=== PATIENT | male | born 1980 | race Caucasian/White ===

== ENCOUNTER 2018-07-04 15:01 | Emergency (ER) | payer OTHER ==
--- NOTE | 2018-07-04 15:48 | EDPHYS ---
Physician Documentation [facility] Name: Shaw Jacome Age: 37 yrs Sex: Male : 1980 Arrival Date: 07/04/2018 Time: 15:04 Bed 6 Private MD: None, None ED Physician Keshav Bhatt HPI: 07/04 15:39 This 37 yrs old Male presents to ER via Ambulatory with complaints of Second jr8 Opinion. 15:39 The patient has not experienced similar symptoms in the past. The patient has been jr8 recently seen by a physician:. Patient stated that he had a cyst removed from his scrotum. Stated that they physician had excised it and then cauterized the area. Stated that he wanted a second opinion because of the open wound that they wanted to leave open . Historical: - Allergies: 15:18 No Known Allergies; aj - Home Meds: 15:18 Bactrim DS Oral [Active]; aj - PMHx: 15:18 None; aj - PSHx: 15:18 None; aj - Immunization history:: Last tetanus immunization: up to date. - Social history:: Smoking status: Patient uses tobacco products, smokes one-half pack cigarettes per day, Patient uses street drugs, Methamphetamine (Meth). - Ebola Screening: : Patient negative for fever greater than or equal to 101.5 degrees Fahrenheit, and additional compatible Ebola Virus Disease symptoms Patient denies exposure to infectious person Patient denies travel to an Ebola-affected area in the 21 days before illness onset No symptoms or risks identified at this time. ROS: 15:39 Eyes: Negative for injury, pain, redness, and discharge, ENT: Negative for injury, jr8 pain, and discharge, Neck: Negative for injury, pain, and swelling, Cardiovascular: Negative for chest pain, palpitations, and edema, Respiratory: Negative for shortness of breath, cough, wheezing, and pleuritic chest pain, Abdomen/GI: Negative for abdominal pain, nausea, vomiting, diarrhea, and constipation, Back: Negative for injury and pain, MS/Extremity: Negative for injury and deformity, Neuro: Negative for headache, weakness, numbness, tingling, and seizure. 15:39 Skin: Positive for open wound left scrotum . Exam: 15:39 Constitutional: This is a well developed, well nourished patient who is awake, alert, jr8 and in no acute distress. Cardiovascular: Regular rate and rhythm with a normal S1 and S2. No gallops, murmurs, or rubs. Normal PMI, no JVD. No pulse deficits. Respiratory: Lungs have equal breath sounds bilaterally, clear to auscultation and percussion. No rales, rhonchi or wheezes noted. No increased work of breathing, no retractions or nasal flaring. Neuro: Awake and alert, GCS 15, oriented to person, place, time, and situation. Cranial nerves II-XII grossly intact. Motor strength 5/5 in all extremities. Sensory grossly intact. Cerebellar exam normal. Normal gait. 15:39 Skin: Patient has approximately 2 cm superficial healing open wound to left anterior scrotum. No erythema or discharge noted. Healing well. No sings of infection . Vital Signs: 15:18 BP 143 / 90; Pulse 87; Resp 18; Temp 97.3; Pulse Ox 98% on R/A; Weight 105.69 kg; aj Height 6 ft. 4 in. (193.04 cm); 15:18 Body Mass Index 28.36 (105.69 kg, 193.04 cm) aj MDM: 15:26 Patient medically screened. jr8 15:39 Data reviewed: vital signs, nurses notes, and as a result, I will discharge patient. jr8 Data interpreted: Pulse oximetry: on room air is 98 %. Interpretation: normal. Counseling: I had a detailed discussion with the patient and/or guardian regarding: the historical points, exam findings, and any diagnostic results supporting the discharge/admit diagnosis, the need for outpatient follow up, a family practitioner, to return to the emergency department if symptoms worsen or persist or if there are any questions or concerns that arise at home. ED course: Discussed with patient that the wound is healing well. No need for wound repair. Will heal secondarily. To keep cleaning it and dressing the area daily. Need to f/u with his PCP . Administered Medications: No medications were administered Disposition: 16:04 Co-signature as Attending Physician, Keshav Bhatt MD. rn Disposition: 07/04/18 15:47 Discharged to Home. Impression: Open wound of scrotum and testes. - Condition is Stable. - Discharge Instructions: Delayed Wound Closure. - Work release form, Medication Reconciliation Form, Thank You Letter, Antibiotic Education, Prescription Opioid Use form. - Follow up: Private Physician; When: 2 - 3 days; Reason: Recheck today's complaints, Continuance of care, Re-evaluation by your physician. - Problem is new. - Symptoms have improved. Signatures: Nish Taylor RN RN sg Myers, Amanda, RN RN aj Nieto, Roman, MD MD rn Roszak, Josh, PA PA jr8 Corrections: (The following items were deleted from the chart) 15:57 15:47 07/04/2018 15:47 Discharged to Home. Impression: Open wound of scrotum and sg testes. Condition is Stable. Forms are Medication Reconciliation Form, Thank You Letter, Antibiotic Education, Prescription Opioid Use. Follow up: Private Physician; When: 2 - 3 days; Reason: Recheck today's complaints, Continuance of care, Re-evaluation by your physician. Problem is new. Symptoms have improved. jr8
--- NOTE | 2018-07-04 15:48 | ER ---
Nurse's Notes [facility] Name: Shaw Jacome Age: 37 yrs Sex: Male : 1980 Arrival Date: 07/04/2018 Time: 15:04 Bed 6 Private MD: None, None Diagnosis: Open wound of scrotum and testes Presentation: 07/04 15:17 Presenting complaint: Patient states: Reports having "a lump removed" from left scrotum aj yesterday. Patient reports that wound was not closed and he would like it clsoed. Transition of care: patient was not received from another setting of care. Onset of symptoms was July 03, 2018. Risk Assessment: Do you want to hurt yourself or someone else? Patient reports no desire to harm self or others. Initial Sepsis Screen: Does the patient meet any 2 criteria? No. Patient's initial sepsis screen is negative. Does the patient have a suspected source of infection? No. Patient's initial sepsis screen is negative. Care prior to arrival: None. 15:17 Method Of Arrival: Ambulatory 15:17 Acuity: CHERRY 4 aj Triage Assessment: 15:18 General: Appears in no apparent distress. comfortable, Behavior is calm, cooperative, aj appropriate for age. Pain: Complains of pain in left testicle. Neuro: Level of Consciousness is awake, alert, obeys commands, Oriented to person, place, time, situation, Appropriate for age. Respiratory: Airway is patent Respiratory effort is even, unlabored, Respiratory pattern is regular, symmetrical. Derm: Skin is intact, is healthy with good turgor, Skin is pink, warm \\T\\ dry. normal, Wound noted left testicle. Historical: - Allergies: 15:18 No Known Allergies; aj - Home Meds: 15:18 Bactrim DS Oral [Active]; aj - PMHx: 15:18 None; aj - PSHx: 15:18 None; aj - Immunization history:: Last tetanus immunization: up to date. - Social history:: Smoking status: Patient uses tobacco products, smokes one-half pack cigarettes per day, Patient uses street drugs, Methamphetamine (Meth). - Ebola Screening: : Patient negative for fever greater than or equal to 101.5 degrees Fahrenheit, and additional compatible Ebola Virus Disease symptoms Patient denies exposure to infectious person Patient denies travel to an Ebola-affected area in the 21 days before illness onset No symptoms or risks identified at this time. Screenin:02 Abuse screen: Denies threats or abuse. Denies injuries from another. Nutritional sg screening: No deficits noted. Tuberculosis screening: No symptoms or risk factors identified. Never had TB. Fall Risk None identified. No fall in past 12 months (0 pts). Assessment: 15:32 General: Appears in no apparent distress. comfortable, Behavior is calm, cooperative. iw Neuro: Level of Consciousness is awake, alert, obeys commands, Oriented to person, place, time, situation, Moves all extremities. Cardiovascular: Patient's skin is warm and dry. Respiratory: Respiratory effort is even, unlabored. Derm: Skin is intact. Musculoskeletal: Range of motion: intact in all extremities. Vital Signs: 15:18 BP 143 / 90; Pulse 87; Resp 18; Temp 97.3; Pulse Ox 98% on R/A; Weight 105.69 kg; aj Height 6 ft. 4 in. (193.04 cm); 15:18 Body Mass Index 28.36 (105.69 kg, 193.04 cm) aj ED Course: 15:04 Patient arrived in ED. mr 15:04 None, None is Private Physician. mr 15:18 Triage completed. aj 15:18 Arm band placed on right wrist. Patient placed in an exam room. aj 15:20 Aline Nicholas, RN is Primary Nurse. iw 15:20 Patient has correct armband on for positive identification. Call light in reach. Side sg rails up X2. Pulse ox on. NIBP on. Warm blanket given. Head of bed elevated. 15:26 Nayan Tomlin PA is PHCP. [facility] 15:26 Keshav Bhatt MD is Attending Physician. jr 15:50 No provider procedures requiring assistance completed. Patient did not have IV access sg during this emergency room visit. 15:54 Dressings: non-adherent dressing x 1 left testicle 4X4s X 1; pelvis and left testicle sg CoBan. Wound care: to cellulitis located on left testicle was cleaned with soap and water, dressed with Neosporin, Patient tolerated well. Administered Medications: No medications were administered Outcome: 15:47 Discharge ordered by . jr8 15:50 Discharged to home ambulatory. sg 15:50 Condition: good 15:50 Discharge instructions given to patient, Instructed on discharge instructions, follow up and referral plans. safe sex practices, safety practices, wound care, Demonstrated understanding of instructions, follow-up care, wound care. 15:57 Patient left the ED. sg Signatures: Nish Taylor RN RN sg Myers, Amanda, RN RN aj Rivera, Mary mr Aline Nicholas RN RN iw Roszak, Josh, PA PA jr8
[2018-07-04 16:00] VITALS: BP 143/90; TEMP 97.3; O2SAT 98
== END 2018-07-04 15:57 | disposition home or self-care (01) ==
LOC: ER 15:01
DX: S31.30XA Unspecified open wound of scrotum and testes, initial encounter (principal); F17.210 Nicotine dependence, cigarettes, uncomplicated
CPT/HCPCS: 99283

== ENCOUNTER 2019-04-30 21:41 | Emergency (ER) | payer OTHER ==
[2019-04-30] MEDS ORDERED: KETOROLAC 30 MG/ML INJ ONE (22:18)
[2019-04-30] MEDS ORDERED: FAMOTIDINE 20 MG TAB ONE (22:18)
[2019-04-30] MEDS ORDERED: PROMETHAZINE 25 MG TABLET ONE (22:18)
--- NOTE | 2019-04-30 23:05 | ER ---
Nurse's Notes [facility] Name: Shaw Jacome Age: 38 yrs Sex: Male : 1980 Arrival Date: 04/30/2019 Time: 21:43 Bed 19 Private MD: Diagnosis: Tension-type headache, unspecified Presentation: 04/30 21:53 Presenting complaint: Patient states: "I am having a head ache. It got so bad at [place] [id number] that I had to go throw up.". Transition of care: patient was not received from another setting of care. Onset of symptoms was April 30, 2019. Risk Assessment: Do you want to hurt yourself or someone else? Patient reports no desire to harm self or others. Initial Sepsis Screen: Does the patient meet any 2 criteria? No. Patient's initial sepsis screen is negative. Does the patient have a suspected source of infection? No. Patient's initial sepsis screen is negative. Care prior to arrival: None. 21:53 Method Of Arrival: [facility] 21:53 Acuity: CHERRY 4 jd3 Historical: - Allergies: 21:55 No Known Allergies; jd3 - Home Meds: 21:55 None [Active]; jd3 - PMHx: 21:55 None; jd3 - PSHx: 21:55 None; jd3 - Immunization history:: Adult Immunizations up to date. - Social history:: Smoking status: Patient uses tobacco products, smokes one pack cigarettes per day. - Ebola Screening: : Patient negative for fever greater than or equal to 101.5 degrees Fahrenheit, and additional compatible Ebola Virus Disease symptoms. Screenin:00 Abuse screen: Denies threats or abuse. Nutritional screening: No deficits noted. jb4 Tuberculosis screening: No symptoms or risk factors identified. Fall Risk None identified. Assessment: 22:00 General: Appears in no apparent distress. uncomfortable, Behavior is calm, cooperative, jb4 appropriate for age. Pain: Complains of pain in forehead, left temporal area and right temporal area Pain does not radiate. Pain currently is 10 out of 10 on a pain scale. Quality of pain is described as pressure. Neuro: Level of Consciousness is awake, alert, obeys commands, Oriented to person, place, time, situation. Cardiovascular: Patient's skin is warm and dry. Respiratory: Airway is patent Respiratory effort is even, unlabored, Respiratory pattern is regular, symmetrical. GI: Reports nausea. : No deficits noted. No signs and/or symptoms were reported regarding the genitourinary system. EENT: No deficits noted. No signs and/or symptoms were reported regarding the EENT system. Derm: Skin is intact, Skin is pink, warm \\T\\ dry. Musculoskeletal: Circulation, motion, and sensation intact. Range of motion: intact in all extremities. 23:00 Reassessment: Patient appears in no apparent distress at this time. Patient and/or jb4 family updated on plan of care and expected duration. Pain level reassessed. Patient is alert, oriented x 3, equal unlabored respirations, skin warm/dry/pink. Pt verbalized understanding of d/c and follow up instructions. Vital Signs: 21:55 BP 117 / 85; Pulse 53; Resp 16 S; Temp 98.7(O); Pulse Ox 97% on R/A; Weight 107.95 kg jd3 (R); Height 6 ft. 5 in. (195.58 cm) (R); Pain 10/10; 23:00 BP 130 / 90; Pulse 51; Resp 16; Pulse Ox 100% on R/A; jb4 21:55 Body Mass Index 28.22 (107.95 kg, 195.58 cm) jd3 Phong Coma Score: 22:58 Eye Response: spontaneous(4). Verbal Response: oriented(5). Motor Response: obeys snw commands(6). Total: 15. ED Course: 21:43 Patient arrived in ED. cl3 21:51 Kelby Curtis RN is Primary Nurse. jb4 21:53 Triage completed. jd3 21:55 Arm band placed on. jd3 21:59 Charley Baires FNP-C is PHCP. snw 21:59 Santiago Cherry MD is Attending Physician. snw 22:00 Patient has correct armband on for positive identification. Bed in low position. Call jb4 light in reach. Side rails up X 1. Pulse ox on. NIBP on. 23:16 No provider procedures requiring assistance completed. Patient did not have IV access jb4 during this emergency room visit. Administered Medications: 22:23 Drug: Pepcid 20 mg Route: PO; jb4 22:59 Follow up: Response: No adverse reaction jb4 22:24 Drug: TORadol 30 mg Route: IM; Site: left gluteus; jb4 22:50 Follow up: Response: No adverse reaction; Pain is decreased jb4 22:24 Drug: Phenergan 25 mg Route: PO; jb4 22:50 Follow up: Response: No adverse reaction; Nausea is decreased jb4 Intake: 19:00 IV: 1000ml; Total: 1000ml. jb4 Outcome: 22:57 Discharge ordered by MD. west 23:16 Discharged to home ambulatory. jb4 23:16 Condition: stable 23:16 Discharge instructions given to patient, Instructed on discharge instructions, follow up and referral plans. medication usage, Demonstrated understanding of instructions, follow-up care, medications, Prescriptions given X 1. 23:16 Patient left the ED. jb4 Signatures: Charley Baires, AIRLINE FLIGHT ATTENDANT-C AIRLINE FLIGHT ATTENDANT-Csnw Kelby Curtis RN RN jb4 Reji Cheng RN RN Seth Bernardo cl3
--- NOTE | 2019-04-30 23:06 | EDPHYS ---
Physician Documentation [facility] Name: Shaw Jacome Age: 38 yrs Sex: Male : 1980 Arrival Date: 04/30/2019 Time: 21:43 Bed 19 Private MD: ED Physician Santiago Cherry HPI: 04/30 22:27 This 38 yrs old Male presents to ER via Ambulatory with complaints of snw Headache. 22:27 The patient complains of pain to the forehead, right anabaptist and left anabaptist. The snw patient describes the headache as pounding. Onset: The symptoms/episode began/occurred acutely, today. Associated signs and symptoms: Pertinent positives: vomiting, x 1. Severity of symptoms: At its worst the pain was moderate, severe. Headache History: Denies prior headaches. the symptoms are aggravated by stress. It is unknown whether or not the patient has had similar symptoms in the past. It is unknown whether or not the patient has recently seen a physician. Historical: - Allergies: 21:55 No Known Allergies; jd3 - Home Meds: 21:55 None [Active]; jd3 - PMHx: 21:55 None; jd3 - PSHx: 21:55 None; jd3 - Immunization history:: Adult Immunizations up to date. - Social history:: Smoking status: Patient uses tobacco products, smokes one pack cigarettes per day. - Ebola Screening: : Patient negative for fever greater than or equal to 101.5 degrees Fahrenheit, and additional compatible Ebola Virus Disease symptoms. ROS: 22:26 Constitutional: Negative for fever, chills, and weight loss, Eyes: Negative for injury, snw pain, redness, and discharge, ENT: Negative for injury, pain, and discharge, Neck: Negative for injury, pain, and swelling, Cardiovascular: Negative for chest pain, palpitations, and edema, Respiratory: Negative for shortness of breath, cough, wheezing, and pleuritic chest pain, Abdomen/GI: Negative for abdominal pain, diarrhea, and constipation, + vomiting 2nd to pain Back: Negative for injury and pain, : Negative for injury, bleeding, discharge, and swelling, MS/Extremity: Negative for injury and deformity, Skin: Negative for injury, rash, and discoloration. 22:26 Neuro: Positive for headache, of the forehead, right anabaptist and left anabaptist. Exam: 22:22 Constitutional: This is a well developed, well nourished patient who is awake, alert, snw and in no acute distress. Head/Face: Normocephalic, atraumatic. Eyes: Pupils equal round and reactive to light, extra-ocular motions intact. Lids and lashes normal. Conjunctiva and sclera are non-icteric and not injected. Cornea within normal limits. Periorbital areas with no swelling, redness, or edema. ENT: Nares patent. No nasal discharge, no septal abnormalities noted. Tympanic membranes are normal and external auditory canals are clear. Oropharynx with no redness, swelling, or masses, exudates, or evidence of obstruction, uvula midline. Mucous membranes moist. Neck: Trachea midline, no thyromegaly or masses palpated, and no cervical lymphadenopathy. Supple, full range of motion without nuchal rigidity, or vertebral point tenderness. No Meningismus. Chest/axilla: Normal chest wall appearance and motion. Nontender with no deformity. No lesions are appreciated. Cardiovascular: Regular rate and rhythm with a normal S1 and S2. No gallops, murmurs, or rubs. Normal PMI, no JVD. No pulse deficits. Respiratory: Lungs have equal breath sounds bilaterally, clear to auscultation and percussion. No rales, rhonchi or wheezes noted. No increased work of breathing, no retractions or nasal flaring. Abdomen/GI: Soft, non-tender, with normal bowel sounds. No distension or tympany. No guarding or rebound. No evidence of tenderness throughout. Back: No spinal tenderness. No costovertebral tenderness. Full range of motion. Skin: Warm, dry with normal turgor. Normal color with no rashes, no lesions, and no evidence of cellulitis. MS/ Extremity: Pulses equal, no cyanosis. Neurovascular intact. Full, normal range of motion. Psych: Awake, alert, with orientation to person, place and time. Behavior, mood, and affect are within normal limits. 22:22 Neuro: Orientation: is normal, Mentation: is normal, Memory: is normal, Cranial nerves: grossly normal, Motor: is normal. Vital Signs: 21:55 BP 117 / 85; Pulse 53; Resp 16 S; Temp 98.7(O); Pulse Ox 97% on R/A; Weight 107.95 kg jd3 (R); Height 6 ft. 5 in. (195.58 cm) (R); Pain 10/10; 23:00 BP 130 / 90; Pulse 51; Resp 16; Pulse Ox 100% on R/A; jb4 21:55 Body Mass Index 28.22 (107.95 kg, 195.58 cm) jd3 Phong Coma Score: 22:58 Eye Response: spontaneous(4). Verbal Response: oriented(5). Motor Response: obeys snw commands(6). Total: 15. MDM: 22:06 Patient medically screened. snw 22:58 Data reviewed: vital signs, nurses notes. Data interpreted: Pulse oximetry: on room air snw is 97 %. Interpretation: normal. Counseling: I had a detailed discussion with the patient and/or guardian regarding: the historical points, exam findings, and any diagnostic results supporting the discharge/admit diagnosis, the need for outpatient follow up, to return to the emergency department if symptoms worsen or persist or if there are any questions or concerns that arise at home. Response to treatment: the patient's symptoms have markedly improved after treatment, the patient's symptoms have resolved after treatment, the patient's blood pressure is in an acceptable range, mental status has returned to baseline, the patient's pain is gone. Special discussion: Based on the history and exam findings, there is no indication for further emergent testing or inpatient evaluation. I discussed with the patient/guardian the need to see the primary care provider for further evaluation of the symptoms. Administered Medications: 22:23 Drug: Pepcid 20 mg Route: PO; jb4 22:59 Follow up: Response: No adverse reaction jb4 22:24 Drug: TORadol 30 mg Route: IM; Site: left gluteus; jb4 22:50 Follow up: Response: No adverse reaction; Pain is decreased jb4 22:24 Drug: Phenergan 25 mg Route: PO; jb4 22:50 Follow up: Response: No adverse reaction; Nausea is decreased jb4 Disposition: 04/30/19 22:57 Discharged to Home. Impression: Tension-type headache, unspecified. - Condition is Stable. - Discharge Instructions: Tension Headache, Adult, Rehydration, Adult. - Prescriptions for promethazine 25 mg Oral Tablet - take 1 tablet by ORAL route every 6 hours As needed; 20 tablet. - Medication Reconciliation Form, Thank You Letter, Antibiotic Education, Prescription Opioid Use form. - Follow up: Private Physician; When: 2 - 3 days; Reason: Recheck today's complaints, Continuance of care, Re-evaluation by your physician. Follow up: Emergency Department; When: As needed; Reason: Worsening of condition. Signatures: Charley Baires, GAVIN-C COUNTY ENGINEER-Csnw Kelby Curtis RN RN jb4 Reji Cheng RN RN jd3 Corrections: (The following items were deleted from the chart) 23:16 22:57 04/30/2019 22:57 Discharged to Home. Impression: Tension-type headache, jb4 unspecified. Condition is Stable. Forms are Medication Reconciliation Form, Thank You Letter, Antibiotic Education, Prescription Opioid Use. Follow up: Private Physician; When: 2 - 3 days; Reason: Recheck today's complaints, Continuance of care, Re-evaluation by your physician. Follow up: Emergency Department; When: As needed; Reason: Worsening of condition. snw
[2019-05-01 03:12] VITALS: TEMP 98.7
[2019-05-01 03:13] VITALS: BP 130/90; O2SAT 100
== END 2019-04-30 23:16 | disposition home or self-care (01) ==
LOC: ER 21:41
DX: G44.209 Tension-type headache, unspecified, not intractable (principal); F17.210 Nicotine dependence, cigarettes, uncomplicated

== ENCOUNTER 2019-09-15 10:05 | Emergency (ER) | payer OTHER ==
--- NOTE | 2019-09-15 10:55 | ER ---
Nurse's Notes [facility] Name: Shaw Jacome Age: 38 yrs Sex: Male : 1980 Arrival Date: 09/15/2019 Time: 10:07 Bed 6 Private MD: Diagnosis: Sebaceous cyst Presentation: 09/15 10:11 Presenting complaint: Patient states: Scrotal pain and swelling, reports started two sg weeks ago, but last night the swelling increased with pain, attempt to squeeze out material but nothing came out just increased the pain, pt states no fever/n/v/d at this time. Transition of care: patient was not received from another setting of care. Onset of symptoms was September 15, 2019. Risk Assessment: Do you want to hurt yourself or someone else? Patient reports no desire to harm self or others. Initial Sepsis Screen: Does the patient meet any 2 criteria? No. Patient's initial sepsis screen is negative. Does the patient have a suspected source of infection? Yes: Skin breakdown/wound. Care prior to arrival: None. 10:11 Method Of Arrival: Ambulatory sg 10:11 Acuity: CHERRY 3 sg Triage Assessment: 19:20 General: Behavior is cooperative, appropriate for age. ch Historical: - Allergies: 10:15 No Known Allergies; sg - Home Meds: 10:15 None [Active]; sg - PMHx: 10:15 None; sg - PSHx: 10:15 None; sg - Immunization history:: Adult Immunizations up to date. - Social history:: Smoking status: Patient uses tobacco products, smokes one pack cigarettes per day. - Ebola Screening: : Patient negative for fever greater than or equal to 101.5 degrees Fahrenheit, and additional compatible Ebola Virus Disease symptoms Patient denies exposure to infectious person Patient denies travel to an Ebola-affected area in the 21 days before illness onset No symptoms or risks identified at this time. - Family history:: not pertinent. Screenin:58 Abuse screen: Denies threats or abuse. Denies injuries from another. Nutritional ch screening: No deficits noted. Tuberculosis screening: No symptoms or risk factors identified. Fall Risk None identified. Assessment: 10:58 Reassessment: Patient appears in no apparent distress at this time. Patient and/or ch family updated on plan of care and expected duration. Pain level reassessed. Patient is alert, oriented x 3, equal unlabored respirations, skin warm/dry/pink. General: Appears in no apparent distress. comfortable. Pain: Complains of pain in groin Pain currently is 5 out of 10 on a pain scale. Neuro: No deficits noted. Respiratory: No deficits noted. GI: No signs and/or symptoms were reported involving the gastrointestinal system. : Reports a " boil" on the skin ath the base of his penis, for weeks. states it has been bothering him more the past two days. Derm: Skin is pink, warm \\T\\ dry. Vital Signs: 10:13 BP 139 / 92; Pulse 65; Resp 17; Temp 98.8; Pulse Ox 100% on R/A; Pain 10/10; sg 10:58 BP 128 / 82; Pulse 71; Resp 16; Temp 98.9; Pulse Ox 100% on R/A; Pain 6/10; ED Course: 10:07 Patient arrived in ED. mr 10:13 Triage completed. 10:19 Tu Brooks MD is Attending Physician. [facility] 10:31 Alycia Castelan, JO ANN is Primary Nurse. 10:55 Anika Otoole MD is Referral Physician. [facility] 10:58 Patient has correct armband on for positive identification. Bed in low position. Call light in reach. Side rails up X 1. 10:58 No provider procedures requiring assistance completed. Patient did not have IV access during this emergency room visit. Administered Medications: No medications were administered Point of Care Testing: Blood Glucose: 10:36 Blood Glucose: 103 mg/dL; hb Ranges: Outcome: 10:55 Discharge ordered by . [facility] 10:58 Discharged to home ambulatory. 10:58 Condition: stable 10:58 Discharge instructions given to patient, Instructed on discharge instructions, follow up and referral plans. medication usage, Demonstrated understanding of instructions, follow-up care, medications, Prescriptions given X 1. 11:02 Patient left the ED. Signatures: Alycia Castelan, Nish Velasquez RN, ch, RN RN sg Anderson, Corey, MD MD cha Rivera, Mary Letitia Fan RN RN hb
--- NOTE | 2019-09-15 10:56 | EDPHYS ---
Physician Documentation [facility] Name: Shaw Jacome Age: 38 yrs Sex: Male : 1980 Arrival Date: 09/15/2019 Time: 10:07 Bed 6 Private MD: CONCHITA Physician Tu Brooks HPI: 09/15 10:49 This 38 yrs old Male presents to ER via Ambulatory with complaints of Abscess.mac 10:49 the patient presents with a swollen area of the shaft of penis. Description: confluent, mac erythematous. Onset: The symptoms/episode began/occurred 3 day(s) ago. Possible cause(s): unknown. Associated signs and symptoms: The patient has no apparent associated signs or symptoms. Modifying factors: the symptoms are alleviated by nothing, the symptoms are aggravated by nothing. Severity of symptoms: At their worst the symptoms were mild, in the emergency department the symptoms are unchanged. The patient has not experienced similar symptoms in the past. Historical: - Allergies: 10:15 No Known Allergies; sg - Home Meds: 10:15 None [Active]; sg - PMHx: 10:15 None; sg - PSHx: 10:15 None; sg - Immunization history:: Adult Immunizations up to date. - Social history:: Smoking status: Patient uses tobacco products, smokes one pack cigarettes per day. - Ebola Screening: : Patient negative for fever greater than or equal to 101.5 degrees Fahrenheit, and additional compatible Ebola Virus Disease symptoms Patient denies exposure to infectious person Patient denies travel to an Ebola-affected area in the 21 days before illness onset No symptoms or risks identified at this time. - Family history:: not pertinent. ROS: 10:49 Constitutional: Negative for fever, chills, and weight loss, Eyes: Negative for injury, mac pain, redness, and discharge, ENT: Negative for injury, pain, and discharge, Neck: Negative for injury, pain, and swelling, Cardiovascular: Negative for chest pain, palpitations, and edema, Respiratory: Negative for shortness of breath, cough, wheezing, and pleuritic chest pain, Abdomen/GI: Negative for abdominal pain, nausea, vomiting, diarrhea, and constipation, Back: Negative for injury and pain, : Negative for injury, bleeding, discharge, and swelling, MS/Extremity: Negative for injury and deformity, Neuro: Negative for headache, weakness, numbness, tingling, and seizure, Psych: Negative for depression, anxiety, suicide ideation, homicidal ideation, and hallucinations, Allergy/Immunology: Negative for hives, rash, and allergies, Endocrine: Negative for neck swelling, polydipsia, polyuria, polyphagia, and marked weight changes, Hematologic/Lymphatic: Negative for swollen nodes, abnormal bleeding, and unusual bruising. 10:49 Skin: Positive for swelling, of the shaft of penis. Exam: 10:49 Constitutional: This is a well developed, well nourished patient who is awake, alert, mac and in no acute distress. Head/Face: Normocephalic, atraumatic. Eyes: Pupils equal round and reactive to light, extra-ocular motions intact. Lids and lashes normal. Conjunctiva and sclera are non-icteric and not injected. Cornea within normal limits. Periorbital areas with no swelling, redness, or edema. ENT: Nares patent. No nasal discharge, no septal abnormalities noted. Tympanic membranes are normal and external auditory canals are clear. Oropharynx with no redness, swelling, or masses, exudates, or evidence of obstruction, uvula midline. Mucous membranes moist. Neck: Trachea midline, no thyromegaly or masses palpated, and no cervical lymphadenopathy. Supple, full range of motion without nuchal rigidity, or vertebral point tenderness. No Meningismus. Chest/axilla: Normal chest wall appearance and motion. Nontender with no deformity. No lesions are appreciated. Cardiovascular: Regular rate and rhythm with a normal S1 and S2. No gallops, murmurs, or rubs. Normal PMI, no JVD. No pulse deficits. Respiratory: Lungs have equal breath sounds bilaterally, clear to auscultation and percussion. No rales, rhonchi or wheezes noted. No increased work of breathing, no retractions or nasal flaring. Abdomen/GI: Soft, non-tender, with normal bowel sounds. No distension or tympany. No guarding or rebound. No evidence of tenderness throughout. Back: No spinal tenderness. No costovertebral tenderness. Full range of motion. Skin: Warm, dry with normal turgor. Normal color with no rashes, no lesions, and no evidence of cellulitis. MS/ Extremity: Pulses equal, no cyanosis. Neurovascular intact. Full, normal range of motion. Neuro: Awake and alert, GCS 15, oriented to person, place, time, and situation. Cranial nerves II-XII grossly intact. Motor strength 5/5 in all extremities. Sensory grossly intact. Cerebellar exam normal. Normal gait. Psych: Awake, alert, with orientation to person, place and time. Behavior, mood, and affect are within normal limits. 10:49 : CVA tenderness, is absent, Male external genitalia: Circumcision noted. swelling: tenderness, small sebaceous cyst beneath the penis. Vital Signs: 10:13 BP 139 / 92; Pulse 65; Resp 17; Temp 98.8; Pulse Ox 100% on R/A; Pain 10/10; sg 10:58 BP 128 / 82; Pulse 71; Resp 16; Temp 98.9; Pulse Ox 100% on R/A; Pain 6/10; ch MDM: 10:19 Patient medically screened. [facility] 10:53 Data reviewed: vital signs, nurses notes, lab test result(s). [facility] 09/15 10:48 Order name: Glucose, Ancillary Testing [facility] 09/15 10:30 Order name: Blood Glucose Level; Complete Time: 10:36 [facility] Administered Medications: No medications were administered Point of Care Testing: Blood Glucose: 10:36 Blood Glucose: 103 mg/dL; hb Ranges: Critical Glucose Levels:Adult <50 mg/dl or >400 mg/dl <40 mg/dl or >180 mg/dl Disposition: 09/15/19 10:55 Discharged to Home. Impression: Sebaceous cyst. - Condition is Stable. - Discharge Instructions: Epidermal Cyst, [id number], Epidermal Cyst. - Prescriptions for Bactrim DS 800- 160 mg Oral Tablet - take 1 tablet by ORAL route every 12 hours for 10 days; 20 tablet. - Medication Reconciliation Form, Thank You Letter, Antibiotic Education, Prescription Opioid Use form. - Follow up: Private Physician; When: 2 - 3 days; Reason: Recheck today's complaints, Continuance of care, Re-evaluation by your physician. Follow up: Anika Otoole MD; When: 2 - 3 days; Reason: Recheck today's complaints, Re-evaluation by your physician. - Problem is new. - Symptoms have improved. Signatures: Dispatcher [employer] [facility] Alycia Castelan RN RN Nish Taylor RN RN sg Anderson, Tu, MD MD mac Corrections: (The following items were deleted from the chart) 10:55 10:55 09/15/2019 10:55 Discharged to Home. Impression: Sebaceous cyst. Condition is mac Stable. Forms are Medication Reconciliation Form, Thank You Letter, Antibiotic Education, Prescription Opioid Use. Follow up: Private Physician; When: 2 - 3 days; Reason: Recheck today's complaints, Continuance of care, Re-evaluation by your physician. Problem is new. Symptoms have improved. mac 11:02 10:55 09/15/2019 10:55 Discharged to Home. Impression: Sebaceous cyst. Condition is ch Stable. Discharge Instructions: Epidermal Cyst, [id number], Epidermal Cyst. Prescriptions for Bactrim DS 800-160 mg Oral Tablet - take 1 tablet by ORAL route every 12 hours for 10 days; 20 tablet. and Forms are Medication Reconciliation Form, Thank You Letter, Antibiotic Education, Prescription Opioid Use. Follow up: Private Physician; When: 2 - 3 days; Reason: Recheck today's complaints, Continuance of care, Re-evaluation by your physician. Follow up: Anika Otoole; When: 2 - 3 days; Reason: Recheck today's complaints, Re-evaluation by your physician. Problem is new. Symptoms have improved. mac
[2019-09-15 11:08] VITALS: O2SAT 100
[2019-09-15 11:10] VITALS: BP 128/82; TEMP 98.9
== END 2019-09-15 11:02 | disposition home or self-care (01) ==
LOC: ER 10:05
DX: N50.89 Other specified disorders of the male genital organs (principal); F17.210 Nicotine dependence, cigarettes, uncomplicated
CPT/HCPCS: 82947; 99282

== ENCOUNTER 2019-09-29 10:49 | Emergency (ER) | payer OTHER ==
[2019-09-29 11:26] LABS: Absolute Lymphocytes (CBC) 2.4 K/uL (0.7-4.9); Basophils % 0.6 % (0-1.3); Hematocrit 48.3 % (39.6-49.0); Lymphocytes % 37.3 % (15.3-44.8); MPV 8.4 fL (7.6-11.3); RBC Red Blood Cell Count 5.28 M/uL (4.33-5.43)
[2019-09-29 11:28] LABS: Protime INR 0.99
[2019-09-29] MEDS ORDERED: ASPIRIN 81 MG CHEWABLE TABLET ONE (11:36)
[2019-09-29] MEDS ORDERED: ALBUTEROL 2.5 MG/3 ML NEB SOL ONE (11:36)
[2019-09-29 11:53] LABS: ALT/SGPT 34 U/L (12-78); AST/SGOT 19 U/L (15-37); Albumin 3.4 g/dL (3.4-5.0); Alkaline Phosphatase 69 U/L (45-117); BUN Blood Urea Nitrogen 10 mg/dL (7-18); Bicarbonate 31 mmol/L (21-32); Bilirubin Direct 0.1 mg/dL (0-0.2); Bilirubin Total 0.4 mg/dL (0.2-1.0); Glucose Level 125 mg/dL (74-106); Magnesium 2.3 mg/dL (1.8-2.4); NT PRO-BNP 6 pg/mL (<125); Potassium 3.8 mmol/L (3.5-5.1); Protein, Total 6.8 g/dL (6.4-8.2); Sodium Level 143 mmol/L (136-145); Troponin (Emerg Dept Use Only) < 0.02 ng/mL (0.0-0.045)
[2019-09-29 12:13] LABS: Barbiturates NEGATIVE (NEGATIVE); Benzodiazepines NEGATIVE (NEGATIVE); Cocaine NEGATIVE (NEGATIVE); METHAMPHETAM NEGATIVE (NEGATIVE); Methadone NEGATIVE (NEGATIVE); Opiates NEGATIVE (NEGATIVE); Phencyclidine NEGATIVE (NEGATIVE); THC Cannibis POSITIVE (NEGATIVE)
--- NOTE | 2019-09-29 12:15 | RAD REPORT ---
EXAM DESCRIPTION: Marry Single View09/29/2019 12:05 pm CLINICAL HISTORY: Chest pain COMPARISON: none FINDINGS: Calcified granuloma right lung. The lungs appear clear of acute infiltrate. The heart is normal size IMPRESSION: No acute abnormalities displayed
[2019-09-29 12:42] LABS: Urine Blood NEGATIVE (NEG); Urine Glucose NEGATIVE (NEG); Urine Protein NEGATIVE (NEG)
--- NOTE | 2019-09-29 13:12 | ER ---
Nurse's Notes [facility] Name: Shaw Jacome Age: 38 yrs Sex: Male : 1980 Arrival Date: 09/29/2019 Time: 10:51 Bed 27 Private MD: Diagnosis: Chest pain, unspecified;Bronchitis, not specified as acute or chronic Presentation: 09/29 10:54 Presenting complaint: Patient states: mid chest pain started 30 minutes ago, feels like iw weight on chest, nonradiating. Transition of care: patient was not received from another setting of care. Onset of symptoms was September 29, 2019. Risk Assessment: Do you want to hurt yourself or someone else? Patient reports no desire to harm self or others. Initial Sepsis Screen: Does the patient meet any 2 criteria? No. Patient's initial sepsis screen is negative. Does the patient have a suspected source of infection? No. Patient's initial sepsis screen is negative. Care prior to arrival: None. 10:54 Method Of Arrival: Ambulatory iw 10:54 Acuity: CHERRY 2 iw Historical: - Allergies: 10:55 No Known Allergies; iw - Home Meds: 10:55 None [Active]; iw - PMHx: 10:55 None; iw - PSHx: 10:55 None; iw - Immunization history:: Adult Immunizations not up to date. - Social history:: Smoking status: Patient uses tobacco products, smokes one pack cigarettes per day. - Ebola Screening: : Patient negative for fever greater than or equal to 101.5 degrees Fahrenheit, and additional compatible Ebola Virus Disease symptoms Patient denies exposure to infectious person Patient denies travel to an Ebola-affected area in the 21 days before illness onset No symptoms or risks identified at this time. Screenin:05 Abuse screen: Denies threats or abuse. Nutritional screening: No deficits noted. em Tuberculosis screening: No symptoms or risk factors identified. Fall Risk None identified. Assessment: 11:10 General: Appears in no apparent distress. comfortable, Behavior is calm, cooperative, em appropriate for age, Denies fever. Pain: Complains of pain in chest Pain does not radiate. Pain began 1 hour ago. Neuro: Level of Consciousness is awake, alert, obeys commands, Oriented to person, place, time, situation, Appropriate for age. Cardiovascular: Reports since chest pressure Denies nausea, vomiting, Heart tones S1 S2 present Capillary refill < 3 seconds Patient's skin is warm and dry. Rhythm is sinus rhythm. Respiratory: Airway is patent Respiratory effort is even, unlabored, Respiratory pattern is regular, symmetrical, Breath sounds with wheezes bilaterally. Denies cough. GI: Patient currently denies nausea, vomiting. Derm: Skin is intact, is healthy with good turgor, Skin is pink, warm \T\ dry. Musculoskeletal: Capillary refill < 3 seconds, Range of motion: intact in all extremities. 12:04 Reassessment: Patient appears in no apparent distress at this time. Patient and/or em family updated on plan of care and expected duration. Pain level reassessed. Patient is alert, oriented x 3, equal unlabored respirations, skin warm/dry/pink. Patient states feeling better. 13:12 Reassessment: pt anxious to leave, refuses EKG, states he is anxious and just wants to em go, provider notified of pt request Patient states feeling better. Vital Signs: 10:55 BP 135 / 86; Pulse 94; Resp 18 S; Temp 98.0; Pulse Ox 95% on R/A; Weight 123.38 kg; iw Height 6 ft. 5 in. (195.58 cm); Pain 8/10; 12:03 BP 122 / 90; Pulse 57; Resp 16; Pulse Ox 95% on R/A; em 10:55 Body Mass Index 32.25 (123.38 kg, 195.58 cm) iw ED Course: 10:51 Patient arrived in ED. mr 10:55 Triage completed. iw 10:55 Arm band placed on. iw 11:04 Jin Carias, RN is Primary Nurse. em 11:05 Patient has correct armband on for positive identification. Placed in gown. Bed in low em position. Call light in reach. Side rails up X2. talent development director on. Pulse ox on. NIBP on. 11:05 Patient maintains SpO2 saturation greater than 95% on room air. em 11:08 Charley Baires [facility]NP-C [facility]. snw 11:08 Keshav Bhatt MD is Attending Physician. snw 11:14 EKG done, by heat treat technician. reviewed by Charley ESCOBAR. at1 11:15 Initial lab(s) drawn, by me, sent to lab. Inserted saline lock: 20 gauge in right em antecubital area, using aseptic technique. Blood collected. 12:06 XRAY Chest (1 view) In Process Unspecified. EDMS 13:23 No provider procedures requiring assistance completed. IV discontinued, intact, em bleeding controlled, No redness/swelling at site. Pressure dressing applied. Administered Medications: 11:38 Drug: Aspirin Chewable Tablet 324 mg Route: PO; em 12:00 Follow up: Response: No adverse reaction em 11:38 Drug: Albuterol 2.5 mg Route: Inhalation; em 12:00 Follow up: Response: No adverse reaction; Marked relief of symptoms em Outcome: 13:12 Discharge ordered by MD. snw 13:23 Discharged to home ambulatory. em 13:23 Condition: good 13:23 Discharge instructions given to patient, Instructed on discharge instructions, follow up and referral plans. medication usage, Demonstrated understanding of instructions, follow-up care, medications, Prescriptions given X 1. 13:44 Patient left the ED. em Signatures: Dispatcher [employer] EDVT Charley Baires, SLOT EDITOR-C SLOT EDITOR-Iva Davis Jin Carias, RN RN Aline Lehman, RN RN iw Stephanie Watson, marine oiler EKG Tat1
--- NOTE | 2019-09-29 13:13 | EDPHYS ---
Physician Documentation [facility] Name: Shaw Jacome Age: 38 yrs Sex: Male : 1980 Arrival Date: 09/29/2019 Time: 10:51 Bed 27 Private MD: ED Physician Keshav Bhatt HPI: 09/29 11:44 This 38 yrs old Male presents to ER via Ambulatory with complaints of Chest snw Pressure. 11:44 The patient or guardian reports chest pain that is located primarily in the anterior snw chest wall, bilaterally. The pain does not radiate. Associated signs and symptoms: The patient has no apparent associated signs or symptoms. The chest pain is described as a pressure. Duration: The patient or guardian reports a single episode, that lasted an unknown period of time. Severity of pain: At its worst the pain was moderate severe. The patient has not experienced similar symptoms in the past, but family has similar symptoms, father. It is unknown whether or not the patient has recently seen a physician. 11:46 Counseled aggressively about smoking cessation. snw Historical: - Allergies: 10:55 No Known Allergies; iw - Home Meds: 10:55 None [Active]; iw - PMHx: 10:55 None; iw - PSHx: 10:55 None; iw - Immunization history:: Adult Immunizations not up to date. - Social history:: Smoking status: Patient uses tobacco products, smokes one pack cigarettes per day. - Ebola Screening: : Patient negative for fever greater than or equal to 101.5 degrees Fahrenheit, and additional compatible Ebola Virus Disease symptoms Patient denies exposure to infectious person Patient denies travel to an Ebola-affected area in the 21 days before illness onset No symptoms or risks identified at this time. ROS: 11:43 Constitutional: Negative for fever, chills, and weight loss, Eyes: Negative for injury, snw pain, redness, and discharge, ENT: Negative for injury, pain, and discharge, Neck: Negative for injury, pain, and swelling, Cardiovascular: Positive for chest pain, Denies palpitations and edema, Respiratory: Negative for shortness of breath, cough, wheezing, and pleuritic chest pain, Abdomen/GI: Negative for abdominal pain, nausea, vomiting, diarrhea, and constipation, Back: Negative for injury and pain, : Negative for injury, bleeding, discharge, and swelling, MS/Extremity: Negative for injury and deformity, Skin: Negative for injury, rash, and discoloration, Neuro: Negative for headache, weakness, numbness, tingling, and seizure, Psych: Negative for depression, anxiety, suicide ideation, homicidal ideation, and hallucinations. Exam: 11:42 Constitutional: This is a well developed, well nourished patient who is awake, alert, snw and in no acute distress. Head/Face: Normocephalic, atraumatic. Eyes: Pupils equal round and reactive to light, extra-ocular motions intact. Lids and lashes normal. Conjunctiva and sclera are non-icteric and not injected. Cornea within normal limits. Periorbital areas with no swelling, redness, or edema. ENT: Nares patent. No nasal discharge, no septal abnormalities noted. Tympanic membranes are normal and external auditory canals are clear. Oropharynx with no redness, swelling, or masses, exudates, or evidence of obstruction, uvula midline. Mucous membranes moist. Neck: Trachea midline, no thyromegaly or masses palpated, and no cervical lymphadenopathy. Supple, full range of motion without nuchal rigidity, or vertebral point tenderness. No Meningismus. Chest/axilla: Normal chest wall appearance and motion. Nontender with no deformity. No lesions are appreciated. Cardiovascular: Regular rate and rhythm with a normal S1 and S2. No gallops, murmurs, or rubs. Normal PMI, no JVD. No pulse deficits. Abdomen/GI: Soft, non-tender, with normal bowel sounds. No distension or tympany. No guarding or rebound. No evidence of tenderness throughout. Back: No spinal tenderness. No costovertebral tenderness. Full range of motion. Skin: Warm, dry with normal turgor. Normal color with no rashes, no lesions, and no evidence of cellulitis. MS/ Extremity: Pulses equal, no cyanosis. Neurovascular intact. Full, normal range of motion. Neuro: Awake and alert, GCS 15, oriented to person, place, time, and situation. Cranial nerves II-XII grossly intact. Motor strength 5/5 in all extremities. Sensory grossly intact. Cerebellar exam normal. Normal gait. Psych: Awake, alert, with orientation to person, place and time. Behavior, mood, and affect are within normal limits. 11:42 Respiratory: the patient does not display signs of respiratory distress, Respirations: normal, Breath sounds: wheezing: expiratory that is moderate, that is severe, is heard diffusely. Vital Signs: 10:55 BP 135 / 86; Pulse 94; Resp 18 S; Temp 98.0; Pulse Ox 95% on R/A; Weight 123.38 kg; iw Height 6 ft. 5 in. (195.58 cm); Pain 8/10; 12:03 BP 122 / 90; Pulse 57; Resp 16; Pulse Ox 95% on R/A; em 10:55 Body Mass Index 32.25 (123.38 kg, 195.58 cm) iw MDM: 11:11 Patient medically screened. snw 12:59 ZOHREH Risk Score: 1 - Recent [<24hrs] Severe Angina, TOTAL SCORE = 1. Data reviewed: snw vital signs, nurses notes, lab test result(s), EKG, radiologic studies. Counseling: I had a detailed discussion with the patient and/or guardian regarding: the historical points, exam findings, and any diagnostic results supporting the discharge/admit diagnosis, the presence of at least one elevated blood pressure reading (>120/80) during this emergency department visit, lab results, radiology results, the need for outpatient follow up, to return to the emergency department if symptoms worsen or persist or if there are any questions or concerns that arise at home, smoking cessation. Special discussion: Based on the patient's history, exam, and Dx evaluation, there is no indication for emergent intervention or inpatient Tx. It is understood by the patient/guardian that if the Sx's persist or worsen they need to return immediately for re-evaluation. I have referred the patient to see his PCP for further evaluation of high blood pressure. Based on the history and exam findings, there is no indication for further emergent testing or inpatient evaluation. I discussed with the patient/guardian the need to see the primary care provider for further evaluation of the symptoms. 09/29 11:09 Order name: Basic Metabolic Panel [facility] 09/29 11:09 Order name: CBC with Diff [facility] 09/29 11:09 Order name: LFT's [facility] 09/29 11:09 Order name: Magnesium; Complete Time: 12:00 w 09/29 11:09 Order name: NT PRO-BNP; Complete Time: 12:00 w 09/29 11:09 Order name: PT-INR; Complete Time: 11:30 snw 09/29 11:09 Order name: Troponin (emerg Dept Use Only); Complete Time: 12:00 snw 09/29 11:09 Order name: XRAY Chest (1 view); Complete Time: 12:17 snw 09/29 11:09 Order name: Urine Drug Screen; Complete Time: 12:14 snw 09/29 11:10 Order name: Basic Metabolic Panel; Complete Time: 12:00 EDMS 09/29 11:10 Order name: CBC with Automated Diff; Complete Time: 11:29 EDMS 09/29 11:10 Order name: Liver (Hepatic) Function; Complete Time: 12:00 EDMS 09/29 12:38 Order name: Urine Dipstick--Ancillary (enter results); Complete Time: 12:52 bd 09/29 13:00 Order name: Troponin (emerg Dept Use Only); Complete Time: 13:37 snw 09/29 11:09 Order name: EKG; Complete Time: 11:10 snw 09/29 11:09 Order name: Cardiac monitoring; Complete Time: 11:17 snw 09/29 11:09 Order name: EKG - Nurse/Tech; Complete Time: 11:17 snw 09/29 11:09 Order name: IV Saline Lock; Complete Time: 11:17 snw 09/29 11:09 Order name: Labs collected and sent; Complete Time: 11:17 snw 09/29 11:09 Order name: O2 Per Protocol; Complete Time: 11:17 snw 09/29 11:09 Order name: O2 Sat Monitoring; Complete Time: 11:17 snw Administered Medications: 11:38 Drug: Aspirin Chewable Tablet 324 mg Route: PO; em 12:00 Follow up: Response: No adverse reaction em 11:38 Drug: Albuterol 2.5 mg Route: Inhalation; em 12:00 Follow up: Response: No adverse reaction; Marked relief of symptoms em Disposition: 17:23 Co-signature as Attending Physician, Keshav Bhatt MD. rn Disposition: 09/29/19 13:12 Discharged to Home. Impression: Chest pain, unspecified, Bronchitis, not specified as acute or chronic. - Condition is Stable. - Discharge Instructions: Acute Bronchitis, Adult, Nonspecific Chest Pain, Steps to Quit Smoking, Smoking Hazards, Aspirin and Your Heart. - Prescriptions for Albuterol Sulfate 90 mcg/actuation - inhale 1-2 puff by INHALATION route every 4-6 hours; 1 Inhaler. - Medication Reconciliation Form, Thank You Letter, Antibiotic Education, Prescription Opioid Use form. - Follow up: Private Physician; When: 2 - 3 days; Reason: Recheck today's complaints, Continuance of care, Re-evaluation by your physician. Follow up: Emergency Department; When: As needed; Reason: Worsening of condition. Signatures: Dispatcher [employer] EDUT Charley Baires, CLINICAL NUTRITIONIST-C CLINICAL NUTRITIONIST-Csnw Jin Carias, JO ANN RN em Aline Nicholas RN RN iw Keshav Bhatt MD MD wedding planning internship: (The following items were deleted from the chart) 13:44 13:12 09/29/2019 13:12 Discharged to Home. Impression: Chest pain, unspecified; em Bronchitis, not specified as acute or chronic. Condition is Stable. Discharge Instructions: Acute Bronchitis, Adult, Nonspecific Chest Pain, Steps to Quit Smoking, Smoking Hazards, Aspirin and Your Heart. Prescriptions for Albuterol Sulfate 90 mcg/actuation - inhale 1-2 puff by INHALATION route every 4-6 hours; 1 Inhaler. and Forms are Medication Reconciliation Form, Thank You Letter, Antibiotic Education, Prescription Opioid Use. Follow up: Private Physician; When: 2 - 3 days; Reason: Recheck today's complaints, Continuance of care, Re-evaluation by your physician. Follow up: Emergency Department; When: As needed; Reason: Worsening of condition. snw
[2019-09-29 14:42] VITALS: TEMP 98; O2SAT 95
[2019-09-29 14:43] VITALS: BP 122/90
--- NOTE | 2019-09-29 14:55 | EKG ---
Test Date: 2019-09-29 Test Time: 11:08:21 Skip Miner: ELIOT MEASUREMENT RESULTS: Intervals: Rate: 71 RI: 152 QRSD: 94 QT: 390 QTc: 423 Maud: P: 46 RI: 152 QRS: 69 T: 54 INTERPRETIVE STATEMENTS: Normal sinus rhythm Normal ECG No previous ECG available for comparison Electronically Signed On 09-29-19 14:54:34 PAYROLL BENEFITS CLERK by Hesham Salmon
== END 2019-09-29 13:44 | disposition home or self-care (01) ==
LOC: ER 10:49
DX: R07.9 Chest pain, unspecified (principal); J40 Bronchitis, not specified as acute or chronic; F17.210 Nicotine dependence, cigarettes, uncomplicated
CPT/HCPCS: 36415; 71045; 80048; 80076; 80307; 81003; 83735; 83880; 84484; 85025; 85610; 93005; 99285

== ENCOUNTER 2019-11-22 09:32 | Emergency (ER) | payer OTHER ==
[2019-11-22] MEDS ORDERED: IPRATROPIUM BROM 0.5MG/2.5ML ONE (10:11)
[2019-11-22] MEDS ORDERED: ALBUTEROL 2.5 MG/3 ML NEB SOL ONE (10:12)
[2019-11-22] MEDS ORDERED: dexAMETHasone 10 MG/ML VIAL ONE (10:12)
[2019-11-22] MEDS ORDERED: HYDROCODONE/CHLORPHEN 5 ML/OSYR ONE (10:12)
--- NOTE | 2019-11-22 10:19 | RAD REPORT ---
EXAM DESCRIPTION: Marry Wood (2 Views)11/22/2019 10:05 am CLINICAL HISTORY: Cough COMPARISON: September 2019 FINDINGS: The lungs appear clear of acute infiltrate. The heart is normal size IMPRESSION: No acute abnormalities displayed
--- NOTE | 2019-11-22 11:33 | ER ---
Nurse's Notes [facility] Name: Shaw Jacome Age: 38 yrs Sex: Male : 1980 Arrival Date: 11/22/2019 Time: 09:34 Bed 5 Private MD: Diagnosis: Bronchitis, not specified as acute or chronic Presentation: 11/21 09:39 Chief complaint: Patient states: wet cough that began 2 weeks ago, pt also reports SOB aa5 and headache. 09:39 Coronavirus screen: The patient has NOT traveled to a country currently being monitored aa5 by the [facility] within the last 14 days. Ebola Screen: Patient negative for fever greater than or equal to 101.5 degrees Fahrenheit, and additional compatible Ebola Virus Disease symptoms. Initial Sepsis Screen: Does the patient meet any 2 criteria? No. Patient's initial sepsis screen is negative. Does the patient have a suspected source of infection? No. Patient's initial sepsis screen is negative. Risk Assessment: Do you want to hurt yourself or someone else? Patient reports no desire to harm self or others. 09:39 Method Of Arrival: Ambulatory aa5 09:39 Acuity: CHERRY 3 aa5 Triage Assessment: 09:52 General: Appears in no apparent distress. comfortable, Behavior is cooperative, bp appropriate for age, anxious. Pain: Denies pain. EENT: Reports nasal congestion. Neuro: No deficits noted. Cardiovascular: No deficits noted. Respiratory: Reports cough that is productive, Onset: The symptoms/episode began/occurred 2 WEEKS, the patient has mild shortness of breath. GI: No signs and/or symptoms were reported involving the gastrointestinal system. : No signs and/or symptoms were reported regarding the genitourinary system. Derm: No deficits noted. Musculoskeletal: No deficits noted. 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 - Social history:: Smoking status: Patient reports the use of cigarette tobacco products, smokes one pack cigarettes per day. Screenin:53 Abuse screen: Denies threats or abuse. Denies injuries from another. Nutritional bp screening: No deficits noted. Tuberculosis screening: No symptoms or risk factors identified. Fall Risk None identified. Assessment: 09:53 General: SEE TRIAGE NOTE. Cardiovascular: Rhythm is sinus rhythm. Respiratory: Airway bp is patent Respiratory effort is even, unlabored, Breath sounds are coarse bilaterally. 11:44 Reassessment: PT D/C HOME AMBULATORY WITH FAMILY, DX WITH VIRAL BRONCHITIS. bp Vital Signs: 09:39 BP 133 / 91; Pulse 89; Resp 20 S; Temp 98.4(O); Pulse Ox 96% on R/A; Weight 117.93 kg aa5 (R); Height 6 ft. 5 in. (195.58 cm) (R); Pain 10/10; 11:44 BP 145 / 85; Pulse 79; Resp 20; Temp 98.5; Pulse Ox 96% ; bp 09:39 Body Mass Index 30.83 (117.93 kg, 195.58 cm) aa5 ED Course: 09:34 Patient arrived in ED. ag5 09:39 Arm band placed on Patient placed in an exam room, on a stretcher. aa5 09:42 Emanuel Hanks, JO ANN is Primary Nurse. bp 09:42 Josué Anton NP is PHCP. pm1 09:42 Keshav Bhatt MD is Attending Physician. pm1 09:47 Triage completed. aa5 09:53 Patient has correct armband on for positive identification. Bed in low position. Call bp light in reach. Side rails up X2. 10:05 Chest Pa And Lat (2 Views) XRAY In Process Unspecified. EDMS 11:44 No provider procedures requiring assistance completed. Patient did not have IV access bp during this emergency room visit. Administered Medications: 10:15 Drug: Albuterol - atroVENT (3:1) (2.5 mg - 0.5 mg) 3 ml Route: Nebulizer; bp 11:00 Follow up: Response: Marked relief of symptoms bp 10:15 Drug: Tussionex Pennkinetic ER 5 ml Route: PO; bp 11:00 Follow up: Response: Marked relief of symptoms bp 10:15 Drug: Decadron 10 mg Route: IM; Site: right deltoid; bp 10:59 Follow up: Response: No adverse reaction bp Outcome: 11:33 Discharge ordered by MD. pm1 11:44 Discharged to home ambulatory, with family. bp 11:44 Condition: stable 11:44 Discharge instructions given to patient, Instructed on discharge instructions, follow up and referral plans. medication usage, Demonstrated understanding of instructions, follow-up care, medications, Prescriptions given X 3. 11:46 Patient left the ED. bp Signatures: Dispatcher [employer] EDMS Demetrice Dean, RN RN aa5 Josué Anton, MANAGER BEHAVIORAL MANAGER BEHAVIORAL pm1 Emanuel Hanks RN RN bp Sally Rodriguez ag5 Corrections: (The following items were deleted from the chart) 10:34 10:00 Albuterol - atroVENT (3:1) (2.5 mg - 0.5 mg) 3 ml Nebulizer bp bp
--- NOTE | 2019-11-22 11:33 | EDPHYS ---
Physician Documentation [facility] Name: Shaw Jacome Age: 38 yrs Sex: Male : 1980 Arrival Date: 11/22/2019 Time: 09:34 Bed 5 Private MD: ED Physician Keshav Bhatt HPI: 11/21 09:52 This 38 yrs old Male presents to ER via Ambulatory with complaints of Flu pm1 Symptoms, Breathing Difficulty. 09:52 The patient or guardian reports cough, flu symptoms, shortness of breath. Onset: The pm1 symptoms/episode began/occurred Onset of cough for 09/29/2019 and worsening of symptoms for the past 2 weeks. Severity of symptoms: in the emergency department the symptoms are actually worse. Modifying factors: The symptoms are alleviated by nothing, the symptoms are aggravated by nothing. Associated signs and symptoms: Pertinent positives: sore throat, Pertinent negatives: chest pain, diarrhea, ear ache, fever, vomiting. It is unknown whether or not the patient has recently seen a physician, Last seen here on 09/29/2019 for the same complaint and was diagnosed with bronchitis and discharged home with albuterol. Patient is 1 pack per day smoker. 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 - Social history:: Smoking status: Patient reports the use of cigarette tobacco products, smokes one pack cigarettes per day. ROS: 09:52 Constitutional: Negative for fever, chills, and weight loss, Eyes: Negative for injury, pm1 pain, redness, and discharge. 09:52 Neck: Negative for injury, pain, and swelling, Cardiovascular: Negative for chest pain, palpitations, and edema. 09:52 Abdomen/GI: Negative for abdominal pain, nausea, vomiting, diarrhea, and constipation, Back: Negative for injury and pain, MS/Extremity: Negative for injury and deformity, Skin: Negative for injury, rash, and discoloration. 09:52 ENT: Positive for sore throat, Negative for drainage from ear(s), ear pain. 09:52 Respiratory: Positive for cough, shortness of breath. 09:52 Neuro: Positive for Headache with coughing. Exam: 09:52 Constitutional: This is a well developed, well nourished patient who is awake, alert, pm1 and in no acute distress. Head/Face: Normocephalic, atraumatic. Chest/axilla: Normal chest wall appearance and motion. Nontender with no deformity. No lesions are appreciated. Cardiovascular: Regular rate and rhythm with a normal S1 and S2. No gallops, murmurs, or rubs. Normal PMI, no JVD. No pulse deficits. 09:52 Abdomen/GI: Soft, non-tender, with normal bowel sounds. No distension or tympany. No guarding or rebound. No evidence of tenderness throughout. Back: No spinal tenderness. No costovertebral tenderness. Full range of motion. Skin: Warm, dry with normal turgor. Normal color with no rashes, no lesions, and no evidence of cellulitis. MS/ Extremity: Pulses equal, no cyanosis. Neurovascular intact. Full, normal range of motion. 09:52 Respiratory: the patient does not display signs of respiratory distress, Respirations: normal, Breath sounds: bronchial sounds, that are mild, are heard diffusely. 09:52 Neuro: Orientation: is normal, Motor: is normal, moves all fours, Gait: is steady, at a normal pace, without difficulty. Vital Signs: 09:39 BP 133 / 91; Pulse 89; Resp 20 S; Temp 98.4(O); Pulse Ox 96% on R/A; Weight 117.93 kg aa5 (R); Height 6 ft. 5 in. (195.58 cm) (R); Pain 10/10; 11:44 BP 145 / 85; Pulse 79; Resp 20; Temp 98.5; Pulse Ox 96% ; bp 09:39 Body Mass Index 30.83 (117.93 kg, 195.58 cm) aa5 MDM: 09:44 Patient medically screened. pm1 11:25 Data reviewed: vital signs. Data interpreted: Pulse oximetry: on room air is 96 %. pm1 Interpretation: normal. 11:25 Counseling: I had a detailed discussion with the patient and/or guardian regarding: the pm1 historical points, exam findings, and any diagnostic results supporting the discharge/admit diagnosis, lab results, radiology results, the need for outpatient follow up, to return to the emergency department if symptoms worsen or persist or if there are any questions or concerns that arise at home. 11:37 ED course: [place]: last filled narcotic medication in 09/02/2018. pm1 11/21 09:51 Order name: Flu; Complete Time: 11:25 pm1 11/21 09:51 Order name: Strep; Complete Time: 11:25 pm1 11/21 09:51 Order name: Chest Pa And Lat (2 Views) XRAY; Complete Time: 10:22 pm1 Administered Medications: 10:15 Drug: Albuterol - atroVENT (3:1) (2.5 mg - 0.5 mg) 3 ml Route: Nebulizer; bp 11:00 Follow up: Response: Marked relief of symptoms bp 10:15 Drug: Tussionex Pennkinetic ER 5 ml Route: PO; bp 11:00 Follow up: Response: Marked relief of symptoms bp 10:15 Drug: Decadron 10 mg Route: IM; Site: right deltoid; bp 10:59 Follow up: Response: No adverse reaction bp Disposition: 12:11 Co-signature as Attending Physician, Keshav Bhatt MD. rn Disposition: 11/22/19 11:33 Discharged to Home. Impression: Bronchitis, not specified as acute or chronic. - Condition is Stable. - Discharge Instructions: Acute Bronchitis, Adult, How to Use an Inhaler, Steps to Quit Smoking, Viral Respiratory Infection, [id number], Cough, Adult. - Prescriptions for Prednisone 20 mg Oral Tablet - take 3 tablet by ORAL route once daily for 5 days; 15 tablet. Albuterol Sulfate 90 mcg/actuation - inhale 1-2 puff by INHALATION route every 4-6 hours; 1 Inhaler. Guaifenesin AC 10- 100 mg/5 mL Oral Liquid - take 10 milliliter by ORAL route every 4 hours As needed; 240 milliliter. - Medication Reconciliation Form, Thank You Letter, Antibiotic Education, Prescription Opioid Use form. - Follow up: Emergency Department; When: As needed; Reason: Worsening of condition. Follow up: Private Physician; When: 2 - 3 days; Reason: Recheck today's complaints, Continuance of care, Re-evaluation by your physician. - Problem is new. - Symptoms have improved. Signatures: Dispatcher [employer] EDMS Keshav Bhatt MD MD rn Calderon, Audri, RN RN aa5 Josué Anton NP [employer] pm1 Emanuel Hanks RN RN bp Corrections: (The following items were deleted from the chart) 11:46 11:33 11/22/2019 11:33 Discharged to Home. Impression: Bronchitis, not specified as bp acute or chronic. Condition is Stable. Forms are Medication Reconciliation Form, Thank You Letter, Antibiotic Education, Prescription Opioid Use. Follow up: Emergency Department; When: As needed; Reason: Worsening of condition. Follow up: Private Physician; When: 2 - 3 days; Reason: Recheck today's complaints, Continuance of care, Re-evaluation by your physician. Problem is new. Symptoms have improved. pm1
[2019-11-22 11:57] VITALS: O2SAT 96
[2019-11-22 11:58] VITALS: BP 145/85; TEMP 98.5
== END 2019-11-22 11:46 | disposition home or self-care (01) ==
LOC: ER 09:32
DX: J40 Bronchitis, not specified as acute or chronic (principal); F17.210 Nicotine dependence, cigarettes, uncomplicated
CPT/HCPCS: 87070; 87081; 87804 ×2; 71046; 94640; 96372; 99284; J1100

== ENCOUNTER 2020-01-17 21:56 | Emergency (ER) | payer OTHER ==
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
[2020-01-17] MEDS ORDERED: DOXYCYCLINE 100 MG CAP PO ONE (22:56)
[2020-01-17] MEDS ORDERED: SMZ./TMP. 800/160 MG TABLET ONE (22:56)
[2020-01-18 01:48] VITALS: BP 124/88; TEMP 98.3; O2SAT 96
== END 2020-01-17 22:55 | disposition home or self-care (01) ==
LOC: ER 21:56
DX: T24.039 Burn of unspecified degree of unspecified lower leg (principal); L08.9 Local infection of the skin and subcutaneous tissue, unspecified; T54.3X1A Toxic effect of corrosive alkalis and alkali-like substances, accidental (unintentional), initial encounter; Y92.89 Other specified places as the place of occurrence of the external cause; F17.210 Nicotine dependence, cigarettes, uncomplicated
CPT/HCPCS: 99283

== ENCOUNTER 2020-11-24 10:05 | Emergency (ER) | payer OTHER ==
[2020-11-24] MEDS ORDERED: KETOROLAC 30 MG/ML INJ ONE (11:44)
[2020-11-24 11:59] LABS: Urine Bacteria <20 /HPF (NONE SEEN); Urine Mucus 1+ /HPF (NONE SEEN); Urine RBC <5 /HPF (NONE SEEN)
[2020-11-24 12:00] LABS: Urine Blood NEGATIVE (NEG); Urine Glucose NEGATIVE (NEG); Urine Protein NEGATIVE (NEG); Urine Specific Gravity >1.030 (1.005-1.030); Urine pH 5.5 (5.0-7.0)
[2020-11-24 12:00] LABS: Calcium Oxalate Crystals- Ur PRESENT (NONE SEEN)
--- NOTE | 2020-11-24 12:22 | RAD REPORT ---
EXAM DESCRIPTION: CT - Stone Protocol - 11/24/2020 12:09 pm CLINICAL HISTORY: Flank pain. left flank pain COMPARISON: No comparisons TECHNIQUE: Axial images were obtained without oral or IV contrast. Lack of contrast limits solid org an and vascular assessment. The [id number] spans the entirety of the system partially obscuring uppermost abdomen and lung bases. Coronal reformatted images were obtained and reviewed. All CT scans are performed using dose optimization technique as appropriate and may include automated exposure control or mA/KV adjustment according to patient size. FINDINGS: The lower lung shrestha are clear. Imaged portions of the liver and spleen show no suspicious findings on non-contrast imaging. The panc reas and adrenal glands are normal. No pathologic lymphadenopathy in the abdomen or pelvis. 5 x 8 mm stone is present in the superior calyx right kidney. There is no hydronephrosis. No left-ivonne ed stone or hydronephrosis seen. No bowel obstruction, free air, free fluid or abscess. Normal appendix noted. No significant bony abnormality. IMPRESSION: Nonobstructing right renal stone.
--- NOTE | 2020-11-24 12:34 | ER ---
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 Coronavirus screen: At this time, the client does not indicate any symptoms associated with coronavirus-19. Ebola Screen: Patient negative for fever greater than or equal to 101.5 degrees Fahrenheit, and additional compatible Ebola Virus Disease symptoms Patient denies exposure to infectious person. Patient denies travel to an Ebola-affected area in the 21 days before illness onset. No symptoms or risks identified at this time. Initial Sepsis Screen: Does the patient meet any 2 criteria? No. Patient's initial sepsis screen is negative. Does the patient have a suspected source of infection? No. Patient's initial sepsis screen is negative. Risk Assessment: Do you want to hurt yourself or someone else? Patient reports no desire to harm self or others. Onset of symptoms was September 2020. 10:23 Method Of Arrival: Ambulatory iw 10:23 Acuity: CHERRY 3 iw Historical: - Allergies: 10:25 No Known Allergies; iw - Home Meds: 10:25 None [Active]; iw - PMHx: 10:25 Underdeveloped lungs as an ; iw - PSHx: 10:25 None; iw - Immunization history:: Adult Immunizations not up to date. - Social history:: Smoking status: Patient reports the use of cigarette tobacco products, smokes one pack cigarettes per day. Screenin:39 Abuse screen: Denies threats or abuse. Nutritional screening: No deficits noted. tw2 Tuberculosis screening: No symptoms or risk factors identified. 11:40 Fall Risk None identified. tw2 Assessment: 11:15 General: Appears in no apparent distress. Behavior is calm, cooperative, appropriate tw2 for age. Pain: Complains of pain in left mid back and left low back. Neuro: Level of Consciousness is awake, alert, obeys commands, Oriented to person, place, time, situation. Cardiovascular: Patient's skin is warm and dry. Respiratory: Airway is patent Respiratory effort is even, unlabored, Respiratory pattern is regular, symmetrical. GI: No signs and/or symptoms were reported involving the gastrointestinal system. : No signs and/or symptoms were reported regarding the genitourinary system. Musculoskeletal: Circulation, motion, and sensation intact. Range of motion: intact in all extremities, Reports pain in left mid back and left low back. 12:41 Reassessment: Patient appears in no apparent distress at this time. Patient and/or zb family updated on plan of care and expected duration. Pain level reassessed. Patient is alert, oriented x 3, equal unlabored respirations, skin warm/dry/pink. d/c instructions given. gait steady and even . Patient states feeling better. Patient states symptoms have improved. Vital Signs: 10:23 BP 118 / 76; Pulse 76; Resp 16; Temp 98.0(O); Pulse Ox 95% on R/A; Weight 122.47 kg; iw Height 6 ft. 6 in. (198.12 cm); Pain 8/10; 11:45 BP 125 / 89; Pulse 66; Resp 17; Pulse Ox 97% on R/A; tw2 12:42 BP 110 / 76; Pulse 59; Resp 16; Pulse Ox 98% on R/A; zb 10:23 Body Mass Index 31.20 (122.47 kg, 198.12 cm) iw ED Course: 10:09 Patient arrived in ED. mr 10:25 Triage completed. iw 10:25 Arm band placed on. iw 11:12 Tu Buckley PA is PHCP. cp 11:12 Keshav Bhatt MD is Attending Physician. cp 11:13 Bed in low position. Call light in reach. Pulse ox on. NIBP on. tw2 11:25 Ashley Sierra, JO ANN is Primary Nurse. tw2 12:09 CT Stone Protocol In Process Unspecified. EDMS 12:42 No provider procedures requiring assistance completed. Patient did not have IV access zb during this emergency room visit. Administered Medications: 11:32 Drug: TORadol 60 mg Route: IM; Site: left deltoid; tw2 12:40 Follow up: Response: No adverse reaction; Pain is decreased zb Outcome: 12:33 Discharge ordered by . cp 12:42 Discharged to home ambulatory. zb 12:42 Condition: stable 12:42 Discharge instructions given to patient, Instructed on discharge instructions, follow up and referral plans. medication usage, Demonstrated understanding of instructions, follow-up care, medications, Prescriptions given X 3. 12:43 Patient left the ED. zb Signatures: Dispatcher [employer] EDMA Iva Odell Aline Nicholas RN RN iw Tu Buckley PA PA cp Wise, Tara RN RN tw2 Criselda Coates RN RN zb Corrections: (The following items were deleted from the chart) 10:26 10:23 BP 118 / 76; Pulse 76bpm; Resp 16bpm; Pulse Ox 95% RA; 122.47 kg; Height 6 ft. 6 iw in.; BMI: 31.2; Pain 8/10; iw
--- NOTE | 2020-11-24 12:44 | EDPHYS ---
Physician Documentation [facility] Name: Shaw Jacome Age: 39 yrs Sex: Male : 1980 Arrival Date: 11/24/2020 Time: 10:09 Bed 19 Private MD: ED Physician Keshav Bhatt HPI: 11/24 11:26 This 39 yrs old Male presents to ER via Ambulatory with complaints of Back cp Pain. 11:26 The patient presents with pain that is acute, with no known mechanism of injury. The cp symptoms are located in the left low back and left mid back. 11:26 Onset: The symptoms/episode began/occurred couple of months ago. The pain radiates to cp the back of left leg. Associated signs and symptoms: Pertinent negatives: abdominal pain, constipation, dysuria, fever, hematuria, incontinence, numbness, weakness. The problem was sustained from unknown cause. Historical: - Allergies: 10:25 No Known Allergies; iw - Home Meds: 10:25 None [Active]; iw - PMHx: 10:25 Underdeveloped lungs as an infant; iw - PSHx: 10:25 None; iw - Immunization history:: Adult Immunizations not up to date. - Social history:: Smoking status: Patient reports the use of cigarette tobacco products, smokes one pack cigarettes per day. ROS: 11:27 Eyes: Negative for injury, pain, redness, and discharge. cp 11:27 Constitutional: Negative for body aches, chills, fever, poor PO intake. 11:27 ENT: Negative for ear pain, sore throat, difficulty swallowing, difficulty handling secretions. 11:27 Cardiovascular: Negative for chest pain, edema, palpitations. 11:27 Respiratory: Negative for cough, shortness of breath, wheezing. 11:27 Abdomen/GI: Negative for abdominal pain, nausea, vomiting, and diarrhea, constipation, black/tarry stool, rectal bleeding, bowel incontinence. 11:27 Back: Positive for pain at rest, pain with movement, of the left low back and left mid back. 11:27 : Negative for urinary symptoms, burning with urination, difficulty urinating, testicular pain 11:27 Neuro: Negative for altered mental status, dizziness, gait disturbance, headache, weakness. 11:27 All other systems are negative. Exam: 11:29 Head/Face: Normocephalic, atraumatic. cp 11:29 Constitutional: The patient appears in no acute distress, alert, awake, non-toxic, well developed, well nourished. 11:29 Eyes: Periorbital structures: appear normal, Conjunctiva: normal, no exudate, no injection, Lids and lashes: appear normal, bilaterally. 11:29 ENT: External ear(s): are unremarkable, Nose: is normal, Posterior pharynx: Airway: no evidence of obstruction, patent. 11:29 Neck: ROM/movement: is normal, is supple, without pain, no range of motions limitations. 11:29 Chest/axilla: Inspection: normal. 11:29 Cardiovascular: Rate: normal. 11:29 Respiratory: the patient does not display signs of respiratory distress, Respirations: normal, no use of accessory muscles, no retractions. 11:29 Abdomen/GI: Inspection: abdomen appears normal. 11:29 Back: pain, that is mild, of the left low back and left mid back, ROM is painful, with all movement. 11:29 Skin: no rash present. 11:29 Neuro: Motor: moves all fours, strength is normal, Sensation: is normal, Gait: is steady, at a normal pace, without difficulty, Deep tendon reflexes are 2+ (normal) in the right patellar, right Achilles, left patellar and left Achilles. Vital Signs: 10:23 BP 118 / 76; Pulse 76; Resp 16; Temp 98.0(O); Pulse Ox 95% on R/A; Weight 122.47 kg; iw Height 6 ft. 6 in. (198.12 cm); Pain 8/10; 11:45 BP 125 / 89; Pulse 66; Resp 17; Pulse Ox 97% on R/A; tw2 12:42 BP 110 / 76; Pulse 59; Resp 16; Pulse Ox 98% on R/A; zb 10:23 Body Mass Index 31.20 (122.47 kg, 198.12 cm) iw MDM: 11:16 Patient medically screened. cp 12:00 Differential diagnosis: chronic back pain, ruptured disc, Ureterolithiasis. cp 12:32 Data reviewed: vital signs, nurses notes, lab test result(s), radiologic studies, CT cp scan. ED course: VSS. Patient reports pain improved with meds. Will discharge to home for continued monitoring. 03/ 11:25 Order name: Urine Microscopic Only; Complete Time: 12:17 cp 11/24 11:45 Order name: Urine Dipstick--Ancillary (enter results); Complete Time: 12:17 bd 11/24 11:25 Order name: Urine Dipstick-Ancillary (obtain specimen); Complete Time: 11:38 cp 11/24 11:55 Order name: CT Stone Protocol; Complete Time: 12:24 cp 11/24 12:25 Interpretation: Report reviewed. cp Administered Medications: 11:32 Drug: TORadol 60 mg Route: IM; Site: left deltoid; tw2 12:40 Follow up: Response: No adverse reaction; Pain is decreased zb Disposition: 14:01 Co-signature as Attending Physician, Keshav Bhatt MD. rn Disposition: 11/24/20 12:33 Discharged to Home. Impression: Low back pain. - Condition is Stable. - Discharge Instructions: Back Pain, Adult, Back Exercises. - Prescriptions for Lidoderm 5 % Topical adhesive patch,medicated - apply 1 patch by TRANSDERMAL route once daily; 1 box. Cyclobenzaprine 10 mg Oral Tablet - take 1 tablet by ORAL route every 8 hours As needed no driving while taking medication; 20 tablet. Diclofenac Sodium 75 mg Oral Tablet, Delayed Release (E.C.) - take 1 tablet by ORAL route 2 times per day; 20 tablet. - Medication Reconciliation Form, Thank You Letter, Antibiotic Education, Prescription Opioid Use, Work release form form. - Follow up: Private Physician; When: 2 - 3 days; Reason: Recheck today's complaints. - Problem is new. - Symptoms have improved. Signatures: Dispatcher [employer] [facility] Aline Nicholas RN RN iw Nieto, Roman, MD MD rn Page, Corey, PA PA cp Ashley Sierra RN RN tw2 Criselda Coates RN RN zb Corrections: (The following items were deleted from the chart) 11:27 11:26 The patient presents with pain that is chronic, with no known mechanism of cp injury, cp 12:43 12:33 11/24/2020 12:33 Discharged to Home. Impression: Low back pain. Condition is zb Stable. Forms are Work release form, Medication Reconciliation Form, Thank You Letter, Antibiotic Education, Prescription Opioid Use. Follow up: Private Physician; When: 2 - 3 days; Reason: Recheck today's complaints. Problem is new. Symptoms have improved. cp
[2020-11-24 21:03] VITALS: TEMP 98
[2020-11-24 21:05] VITALS: BP 110/76; O2SAT 98
== END 2020-11-24 12:43 | disposition home or self-care (01) ==
LOC: ER 10:05
DX: M54.5 Low back pain (principal); F17.210 Nicotine dependence, cigarettes, uncomplicated
CPT/HCPCS: 74176; 76377; 81003; 81015; 96372; 99284

== ENCOUNTER 2021-03-09 13:44 | Emergency (ER) | payer OTHER ==
[2021-03-09 15:36] LABS: Urine Blood Trace-intact (Negative); Urine Glucose Negative (Negative); Urine Protein Negative (Negative); Urine Specific Gravity >=1.030 (1.005-1.030); Urine pH 5.5 (5.0-7.0)
[2021-03-09 16:00] LABS: Absolute Lymphocytes (CBC) 1.3 K/uL (0.7-4.9); Basophils % 0.4 % (0-1.3); Hematocrit 46.3 % (39.6-49.0); Lymphocytes % 13.8 % (15.3-44.8); MPV 8.5 fL (7.6-11.3)
[2021-03-09] MEDS ORDERED: ONDANSETRON 4 MG/2 ML VIAL ONE (16:05)
[2021-03-09] MEDS ORDERED: NA CHLORIDE 0.9% 1,000 ML ONE (16:05)
[2021-03-09] MEDS ORDERED: PANTOPRAZOLE 40 MG INJ ONE (16:05)
[2021-03-09 16:20] LABS: ALT/SGPT 36 U/L (12-78); AST/SGOT 17 U/L (15-37); Albumin 3.8 g/dL (3.4-5.0); Alkaline Phosphatase 87 U/L (45-117); BUN Blood Urea Nitrogen 9 mg/dL (7-18); Bicarbonate 29 mmol/L (21-32); Bilirubin Direct 0.1 mg/dL (0-0.2); Bilirubin Total 0.4 mg/dL (0.2-1.0); Glucose Level 94 mg/dL (74-106); Lipase 384 U/L (73-393); Potassium 4.1 mmol/L (3.5-5.1); Protein, Total 7.8 g/dL (6.4-8.2); Sodium Level 141 mmol/L (136-145)
--- NOTE | 2021-03-09 17:03 | RAD REPORT ---
EXAM DESCRIPTION: CT - Abdomen Pelvis W Contrast - 03/09/2021 4:48 pm CLINICAL HISTORY: Abdominal pain COMPARISON: none. TECHNIQUE: Computed axial tomography of the abdomen pelvis was obtained. 100 cc Isovue-300 was admin istered intravenously. Oral contrast was not requested which limits evaluation of bowel. All CT scans are performed using dose optimization technique as appropriate and may include automated exposure control or mA/KV adjustment according to patient size. FINDINGS: A 6 millimeter calculus right kidney. No hydronephrosis. The liver, spleen, pancreas, adrenal and left kidney appear unremarkable. There is no evidence of diverticulitis. Normal appendix. Small hiatal hernia Small umbilical hernia IMPRESSION: Nonobstructing right renal calculus
--- NOTE | 2021-03-09 17:51 | ER ---
Nurse's Notes [facility] Name: Shaw Jacome Age: 40 yrs Sex: Male : 1980 Arrival Date: 03/09/2021 Time: 13:47 Bed 7 Private MD: Diagnosis: Upper abdominal pain, unspecified;Diarrhea, unspecified Presentation: 03/09 13:56 Chief complaint: Patient states: i am having abdominal pain. i guess it started in the tw2 middle of the night passing gas, it feels like needles are in my stomach poking me. i had to call into work. i feel bloated. i ate oatmeal at 2am and that's all i can think of . Coronavirus screen: At this time, the client does not indicate any symptoms associated with coronavirus-19. Ebola Screen: Patient denies travel to an Ebola-affected area in the 21 days before illness onset. Initial Sepsis Screen: Does the patient meet any 2 criteria? No. Patient's initial sepsis screen is negative. Does the patient have a suspected source of infection? No. Patient's initial sepsis screen is negative. Risk Assessment: Do you want to hurt yourself or someone else? Patient reports no desire to harm self or others. Onset of symptoms was March 09, 2021. 13:56 Method Of Arrival: Ambulatory tw2 13:56 Acuity: CHERRY 3 tw2 Triage Assessment: 13:59 General: Appears in no apparent distress. uncomfortable, well groomed, Behavior is tw2 calm, cooperative, appropriate for age. Pain: Complains of pain in epigastric area. GI: Reports lower abdominal pain, upper abdominal pain, cramping. 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 - Social history:: Smoking status: Patient reports the use of cigarette tobacco products, smokes one pack cigarettes per day. Patient uses street drugs, marijuana. Screenin:50 Abuse screen: Denies threats or abuse. Denies injuries from another. Nutritional hb screening: No deficits noted. Tuberculosis screening: No symptoms or risk factors identified. Fall Risk None identified. Assessment: 15:50 General: Appears in no apparent distress. Behavior is calm, cooperative. Pain: Pain hb currently is 8 out of 10 on a pain scale. Neuro: Level of Consciousness is awake, alert, obeys commands, Oriented to person, place, time, situation. Cardiovascular: Patient's skin is warm and dry. Respiratory: Respiratory effort is even, unlabored, Respiratory pattern is regular, symmetrical. GI: Reports lower abdominal pain, upper abdominal pain, diarrhea, nausea. : No signs and/or symptoms were reported regarding the genitourinary system. EENT: No signs and/or symptoms were reported regarding the EENT system. Derm: Skin is pink, warm \T\ dry. Musculoskeletal: No signs and/or symptoms reported regarding the musculoskeletal system. 16:37 Reassessment: Patient appears in no apparent distress at this time. Patient and/or hb family updated on plan of care and expected duration. Pain level reassessed. Patient is alert, oriented x 3, equal unlabored respirations, skin warm/dry/pink. 17:21 Reassessment: Patient appears in no apparent distress at this time. Patient and/or hb family updated on plan of care and expected duration. Pain level reassessed. Patient is alert, oriented x 3, equal unlabored respirations, skin warm/dry/pink. Vital Signs: 13:56 BP 125 / 91; Pulse 57; Resp 17; Temp 97.9(TE); Pulse Ox 99% on R/A; Weight 117.93 kg tw2 (R); Height 6 ft. 6 in. (198.12 cm); Pain 9/10; 17:00 BP 136 / 86; Pulse 60; Resp 15; Pulse Ox 99% on R/A; hb 13:56 Body Mass Index 30.05 (117.93 kg, 198.12 cm) tw2 ED Course: 13:47 Patient arrived in ED. wm 13:58 Triage completed. tw2 13:59 Arm band placed on. tw2 15:29 Tu Buckley PA is PHCP. cp 15:29 Keshav Bhatt MD is Attending Physician. cp 15:43 Letitia Fan, JO ANN is Primary Nurse. hb 15:50 Patient has correct armband on for positive identification. Call light in reach. Side hb rails up X 1. 15:52 Basic Metabolic Panel Sent. mh5 15:52 CBC with Diff Sent. 5 15:52 Hepatic Function Sent. [facility] 15:53 Lipase Sent. [facility] 15:53 Initial lab(s) drawn, by in, sent to lab. Urine collected: clean catch specimen, [facility] cloudy. Inserted saline lock: 20 gauge in left antecubital area, using aseptic technique. Blood collected. 15:54 Warm blanket given. Pillow given. Pulse ox on. NIBP on. [facility] 15:54 Bed in low position. 5 18:10 No provider procedures requiring assistance completed. IV discontinued, intact, ss bleeding controlled, No redness/swelling at site. Pressure dressing applied. Administered Medications: 15:49 Drug: Zofran (Ondansetron) 4 mg Route: IVP; Site: left antecubital; hb 16:37 Follow up: Response: No adverse reaction hb 15:49 Drug: ProTONIX (pantoprazole) 40 mg Route: IVP; Site: left antecubital; hb 16:37 Follow up: Response: No adverse reaction hb 15:49 Drug: NS 0.9% 1000 ml Route: IV; Rate: 1 bolus; Site: left antecubital; hb 18:10 Follow up: IV Status: Completed infusion; IV Intake: 1000ml ss 17:34 Drug: GI Cocktail without - (Maalox Suspension 30 ml, Lidocaine Liquid 2 % 15 hb ml) Route: PO; Intake: 18:10 IV: 1000ml; Total: 1000ml. ss Outcome: 17:50 Discharge ordered by MD. cp 18:10 Discharged to home ambulatory. ss 18:10 Condition: good 18:10 Discharge instructions given to patient, Instructed on discharge instructions, follow up and referral plans. medication usage, Demonstrated understanding of instructions, follow-up care, medications, Prescriptions given X 3. 18:11 Patient left the ED. ss Signatures: Renae Fonseca RN RN ss Tu Buckley PA PA cp Baxter, Heather, RN RN Ashley Sierra RN RN Denisse Shore [facility] Irene Serna Corrections: (The following items were deleted from the chart) 16:37 16:37 Reassessment: Patient appears in no apparent distress at this time. Patient hb and/or family updated on plan of care and expected duration. Pain level reassessed. Patient is alert/active/playful, equal unlabored respirations, skin warm/dry/pink. hb
--- NOTE | 2021-03-09 17:51 | EDPHYS ---
Physician Documentation [facility] Name: Shaw Jacome Age: 40 yrs Sex: Male : 1980 Arrival Date: 03/09/2021 Time: 13:47 Bed 7 Private MD: ED Physician Keshav Bhatt HPI: 03/09 15:45 This 40 yrs old Male presents to ER via Ambulatory with complaints of cp Abdominal Pain. 15:45 The patient presents with abdominal pain in the epigastric area, in the upper abdomen. cp Onset: The symptoms/episode began/occurred last night, and became worse this morning. 17:38 The symptoms do not radiate. Associated signs and symptoms: Pertinent positives: cp diarrhea, nausea, Pertinent negatives: blood in stools, chest pain, constipation, fever, vomiting. The symptoms are described as like pins and needles. 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 - Social history:: Smoking status: Patient reports the use of cigarette tobacco products, smokes one pack cigarettes per day. Patient uses street drugs, marijuana. ROS: 15:55 Constitutional: Negative for body aches, chills, fever, poor PO intake. cp 15:55 Eyes: Negative for injury, pain, redness, and discharge. cp 15:55 ENT: Negative for ear pain, sore throat, difficulty swallowing, difficulty handling secretions. 15:55 Cardiovascular: Negative for chest pain, edema, palpitations. 15:55 Respiratory: Negative for cough, shortness of breath, wheezing. 15:55 Abdomen/GI: Positive for abdominal pain, nausea, diarrhea, abdominal distension, Negative for vomiting, constipation, dysphagia, hematemesis, black/tarry stool, rectal bleeding. 15:55 Back: Negative for pain at rest, pain with movement. 15:55 : Negative for urinary symptoms, testicular pain 15:55 Neuro: Negative for altered mental status, dizziness, headache, syncope, weakness. 15:55 All other systems are negative. Exam: 16:00 Constitutional: The patient appears in no acute distress, alert, awake, cp non-diaphoretic, non-toxic, well developed, well nourished. 16:00 Head/Face: Normocephalic, atraumatic. cp 16:00 Eyes: Periorbital structures: appear normal, Conjunctiva: normal, no exudate, no injection, Sclera: no appreciated abnormality, Lids and lashes: appear normal, bilaterally. 16:00 ENT: External ear(s): are unremarkable, Nose: is normal, Mouth: Lips: moist, Oral mucosa: moist, Posterior pharynx: Airway: no evidence of obstruction, patent. 16:00 Neck: ROM/movement: is normal, is supple, without pain, no range of motions limitations. 16:00 Chest/axilla: Inspection: normal, Palpation: is normal, no crepitus, no tenderness. 16:00 Cardiovascular: Rate: bradycardic, Rhythm: regular. 16:00 Respiratory: the patient does not display signs of respiratory distress, Respirations: normal, no use of accessory muscles, no retractions, labored breathing, is not present, Breath sounds: are clear throughout, no decreased breath sounds, no stridor, no wheezing. 16:00 Abdomen/GI: Inspection: distension, that is mild, Bowel sounds: active, all quadrants, Palpation: soft, in all quadrants, mild abdominal tenderness, in the epigastric area, right upper quadrant and left upper quadrant, rebound tenderness, is not appreciated, voluntary guarding, is not appreciated, involuntary guarding, is not appreciated. 16:00 Back: CVA tenderness, is absent. 16:00 Skin: no rash present. 16:00 Neuro: Orientation: to person, place \T\ time. Mentation: is normal. Vital Signs: 13:56 BP 125 / 91; Pulse 57; Resp 17; Temp 97.9(TE); Pulse Ox 99% on R/A; Weight 117.93 kg tw2 (R); Height 6 ft. 6 in. (198.12 cm); Pain 9/10; 17:00 BP 136 / 86; Pulse 60; Resp 15; Pulse Ox 99% on R/A; hb 13:56 Body Mass Index 30.05 (117.93 kg, 198.12 cm) tw2 MDM: 15:34 Patient medically screened. cp 15:55 Differential diagnosis: appendicitis, bowel obstruction, cholecystitis, Cholelithiasis, cp diverticulitis, gastritis, non-specific abd pain, pancreatitis, urinary tract infection. 17:50 Patient medically screened. 17:50 Data reviewed: vital signs, nurses notes, lab test result(s), radiologic studies, CT cp scan. 17:50 Counseling: I had a detailed discussion with the patient and/or guardian regarding: the cp historical points, exam findings, and any diagnostic results supporting the discharge/admit diagnosis, lab results, to return to the emergency department if symptoms worsen or persist or if there are any questions or concerns that arise at home. Response to treatment: the patient's symptoms have mildly improved after treatment, and as a result, I will discharge patient. Special discussion: Based on the patient's Hx, exam, and Dx evaluation, there is no indication for emergent surgery or inpatient Tx. It is understood by the patient/guardian that if the Sx's persist or worsen they need to return immediately for re-evaluation. 03/09 15:37 Order name: Urine Dipstick-Ancillary; Complete Time: 17:18 EDLA 03/09 17:18 Interpretation: Normal except: UBLD Trace-intact. 03/09 15:40 Order name: Basic Metabolic Panel 03/09 15:40 Order name: CBC with Diff 03/09 15:40 Order name: Hepatic Function 03/09 15:40 Order name: Lipase 03/09 16:03 Order name: CBC with Automated Diff; Complete Time: 17:18 EDMS 03/09 17:18 Interpretation: Normal except: CASTILLO% 75.6; LYM% 13.8. 03/09 15:40 Order name: CT Abd/Pelvis - IV Contrast Only 03/09 16:20 Order name: Basic Metabolic Panel; Complete Time: 17:18 EDMS 03/09 17:19 Interpretation: Normal except: CL 109. 03/09 16:20 Order name: Liver (Hepatic) Function; Complete Time: 17:18 EDMS 03/09 16:20 Order name: Lipase; Complete Time: 17:18 EDMS 03/09 17:04 Order name: CT; Complete Time: 17:18 EDLA 03/09 15:40 Order name: IV Saline Lock; Complete Time: 15:49 cp 03/09 15:40 Order name: Labs collected and sent; Complete Time: 15:50 cp Administered Medications: 15:49 Drug: Zofran (Ondansetron) 4 mg Route: IVP; Site: left antecubital; hb 16:37 Follow up: Response: No adverse reaction hb 15:49 Drug: ProTONIX (pantoprazole) 40 mg Route: IVP; Site: left antecubital; hb 16:37 Follow up: Response: No adverse reaction hb 15:49 Drug: NS 0.9% 1000 ml Route: IV; Rate: 1 bolus; Site: left antecubital; hb 18:10 Follow up: IV Status: Completed infusion; IV Intake: 1000ml ss 17:34 Drug: GI Cocktail without - (Maalox Suspension 30 ml, Lidocaine Liquid 2 % 15 hb ml) Route: PO; Disposition: 18:16 Co-signature as Attending Physician, Keshav Bhatt MD. rn Disposition: 03/09/21 17:50 Discharged to Home. Impression: Upper abdominal pain, unspecified, Diarrhea, unspecified. - Condition is Stable. - Discharge Instructions: Abdominal Pain, Adult, Food Choices to Help Relieve Diarrhea, Adult, Diarrhea, Adult. - Prescriptions for Bentyl 20 mg Oral Tablet - take 2 tablet by ORAL route every 6 hours As needed; 40 tablet. Zofran 4 mg Oral Tablet - take 1 tablet by ORAL route every 12 hours As needed; 20 tablet. promethazine 25 mg Oral Tablet - take 1 tablet by ORAL route every 6 hours As needed; 20 tablet. - Medication Reconciliation Form, Thank You Letter, Antibiotic Education, Prescription Opioid Use form. - Follow up: Private Physician; When: 2 - 3 days; Reason: Worsening of condition. - Problem is new. - Symptoms have improved. Signatures: Dispatcher [employer] EDMS Keshav Bhatt MD MD rn Smirch, Shelby, RN RN ss Tu Buckley PA PA cp Letitia Fan RN Ashley Fajardo RN RN tw2 Corrections: (The following items were deleted from the chart) 17:39 15:45 Onset: The symptoms/episode began/occurred this morning, cp cp 18:11 17:50 03/09/2021 17:50 Discharged to Home. Impression: Upper abdominal pain, ss unspecified; Diarrhea, unspecified. Condition is Stable. Forms are Medication Reconciliation Form, Thank You Letter, Antibiotic Education, Prescription Opioid Use. Follow up: Private Physician; When: 2 - 3 days; Reason: Worsening of condition. Problem is new. Symptoms have improved. cp
[2021-03-09] MEDS ORDERED: LIDOCAINE VISCOUS 2% SOLN 15 ML UDC ONE (17:52)
[2021-03-09] MEDS ORDERED: MAGNES/ALUMIN/SIMET 30ML UCUP ONE (17:52)
[2021-03-09 18:50] VITALS: TEMP 97.9; O2SAT 99
[2021-03-09 18:52] VITALS: BP 136/86
== END 2021-03-09 18:11 | disposition home or self-care (01) ==
LOC: ER 13:44
DX: R19.7 Diarrhea, unspecified (principal); F17.210 Nicotine dependence, cigarettes, uncomplicated
CPT/HCPCS: 85025; 80048; 36415; 80076; 81003; 83690; 74177; Q9967; C9113; J7030; J2405

== ENCOUNTER 2021-05-30 16:43 | Emergency (ER) | payer OTHER ==
[2021-05-30] MEDS ORDERED: LIDOCAINE 1% MPF 5 ML VIAL ONE (18:24)
[2021-05-30] MEDS ORDERED: TETANUS & DIPHTHERIA TOX,ADULT 0.5 ML VIAL ONE (18:24)
--- NOTE | 2021-05-30 18:27 | ER ---
Nurse's Notes [facility] Name: Shaw Jacome Age: 40 yrs Sex: Male : 1980 Arrival Date: 05/30/2021 Time: 16:43 Bed 23 Private MD: Diagnosis: Laceration without foreign body of right ring finger without damage to nail Presentation: 05/30 17:14 Chief complaint: Patient states: laceration to right hand ring finger. Pt hit a glass kg table with his hand breaking the glass and cutting his hand. Coronavirus screen: Vaccine status: Patient reports being unvaccinated. Ebola Screen: Patient negative for fever greater than or equal to 101.5 degrees Fahrenheit, and additional compatible Ebola Virus Disease symptoms Patient denies exposure to infectious person. Patient denies travel to an Ebola-affected area in the 21 days before illness onset. Initial Sepsis Screen: Does the patient meet any 2 criteria? No. Patient's initial sepsis screen is negative. Does the patient have a suspected source of infection? No. Patient's initial sepsis screen is negative. Risk Assessment: Do you want to hurt yourself or someone else? Patient reports no desire to harm self or others. Onset of symptoms was May 30, 2021 at 16:30. 17:14 Method Of Arrival: Ambulatory kg 17:14 Acuity: CHERRY 4 kg Triage Assessment: 17:16 General: Appears in no apparent distress. Behavior is calm, cooperative, appropriate kg for age. Pain: Denies pain. Musculoskeletal: Capillary refill < 3 seconds. Injury Description: Laceration sustained to dorsal aspect of proximal phalanx of right ring finger is 0.5 to 2.5 cm long, bleeding moderately, was sustained 1-2 hours ago. a small amount of bleeding noted at this time. Historical: - Allergies: 17:16 No Known Allergies; kg - Home Meds: 17:16 None [Active]; kg - PMHx: 17:16 Underdeveloped lungs as an infant; kg - PSHx: 17:16 None; kg - Immunization history:: Adult Immunizations unknown, Client reports having NOT received the Covid vaccine. - Social history:: Smoking status: Patient reports the use of cigarette tobacco products, smokes one pack cigarettes per day. Patient uses street drugs, marijuana. Screenin:18 Abuse screen: Denies threats or abuse. Denies injuries from another. Nutritional kg screening: No deficits noted. Tuberculosis screening: No symptoms or risk factors identified. Fall Risk None identified. Assessment: 17:50 General: Appears in no apparent distress. comfortable, Behavior is calm, cooperative, ld1 appropriate for age. 17:50 Pain: Complains of pain in right hand Pain does not radiate. Pain currently is 6 out of ld1 10 on a pain scale. Quality of pain is described as throbbing, Pain began 4 hours ago. Is continuous. Neuro: Level of Consciousness is awake, alert, obeys commands, Oriented to person, place, time, situation, Appropriate for age. Cardiovascular: Capillary refill < 3 seconds Patient's skin is warm and dry. Respiratory: Airway is patent Respiratory effort is even, unlabored, Respiratory pattern is regular, symmetrical. GI: Abdomen is flat, non-distended. : No deficits noted. EENT: No signs and/or symptoms were reported regarding the EENT system. Derm: No signs and/or symptoms reported regarding the dermatologic system. Musculoskeletal: No signs and/or symptoms reported regarding the musculoskeletal system. Vital Signs: 17:14 BP 108 / 80; Pulse 58; Resp 20; Temp 99.3(O); Pulse Ox 96% on R/A; Weight 117.93 kg kg (R); Height 6 ft. 6 in. (198.12 cm); Pain 0/10; 17:50 BP 116 / 84; Pulse 64; Resp 18; Pulse Ox 98% on R/A; ld1 17:14 Body Mass Index 30.05 (117.93 kg, 198.12 cm) kg ED Course: 16:43 Patient arrived in ED. am2 17:16 Triage completed. kg 17:16 Arm band placed on left wrist. kg 17:18 Patient has correct armband on for positive identification. kg 17:27 Josué Anton NP is PHCP. pm1 17:27 Keshav Bhatt MD is Attending Physician. pm1 18:02 Hand Right 3 View XRAY In Process Unspecified. EDMS 18:26 Parveen Mayo MD is Referral Physician. pm1 19:03 No provider procedures requiring assistance completed. Patient did not have IV access ld1 during this emergency room visit. 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 Exp: ld1 12/16/2022. Lot #: [id number]. } Route: IM; Site: right deltoid; 18:07 Follow up: Response: No adverse reaction ld1 18:07 Drug: Lidocaine (1 %) 5 ml {Note: Administered by Josué Anton NP.} Volume: 5 ml; ld1 Route: Infiltration; Outcome: 18:27 Discharge ordered by . pm1 19:03 Discharged to home ambulatory. ld1 19:03 Condition: stable 19:03 Discharge instructions given to patient, family, Instructed on discharge instructions, follow up and referral plans. medication usage, Demonstrated understanding of instructions, follow-up care, medications, Prescriptions given X 1. 19:03 Patient left the ED. ld1 Signatures: Dispatcher [employer] EDJosué Gamboa NP [employer] pm1 Stephanie Lan am2 Jacklyn Conroy RN RN ld1 Mary Pan RN RN kg
--- NOTE | 2021-05-30 18:27 | EDPHYS ---
Physician Documentation [facility] Name: Shaw Jacome Age: 40 yrs Sex: Male : 1980 Arrival Date: 05/30/2021 Time: 16:43 Bed 23 Private MD: ED Physician Keshav Bhatt HPI: 05/30 17:36 This 40 yrs old Male presents to ER via Ambulatory with complaints of Finger pm1 Injury, Laceration. 17:36 The patient or guardian reports a laceration, clean. The complaints affect the dorsal pm1 aspect of proximal phalanx of right ring finger. Context: The problem was sustained at home, resulted from pounded the edge of a table to emphasize a point .Broke the glass with his hand. Onset: The symptoms/episode began/occurred just prior to arrival. Modifying factors: The symptoms are alleviated by pressure to area, the symptoms are aggravated by nothing. Associated signs and symptoms: Pertinent negatives: cyanosis distally, decreased sensation distally, numbness distally, tingling distally. Severity of symptoms: in the emergency department the symptoms are unchanged. The patient has not experienced similar symptoms in the past. The patient has not recently seen a physician. 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 - Social history:: Smoking status: Patient reports the use of cigarette tobacco products, smokes one pack cigarettes per day. Patient uses street drugs, marijuana. ROS: 17:36 Constitutional: Negative for fever, chills, and weight loss, Cardiovascular: Negative pm1 for chest pain, palpitations, and edema, Respiratory: Negative for shortness of breath, cough, wheezing, and pleuritic chest pain, Abdomen/GI: Negative for abdominal pain, nausea, vomiting, diarrhea, and constipation. 17:36 Neuro: Negative for headache, weakness, numbness, tingling, and seizure. 17:36 MS/extremity: Positive for laceration, of the dorsal aspect of proximal phalanx of right ring finger, Small abrasions to fourth finger and pinky finger, Negative for decreased range of motion, deformity, Foreign body sensation. 17:36 Skin: Positive for Laceration as noted in the MS extremity ROS. 17:36 All other systems are negative. Exam: 17:36 Constitutional: This is a well developed, well nourished patient who is awake, alert, pm1 and in no acute distress. Head/Face: Normocephalic, atraumatic. 17:36 Cardiovascular: Exam negative for acute changes, Rate: normal, Rhythm: regular, Pulses: no pulse deficits are appreciated. 17:36 Respiratory: Exam negative for acute changes, respiratory distress, shortness of breath. 17:36 Skin: Appearance: normal except for affected area, injury, abrasion(s), small abrasion noted, of the dorsal aspect of middle phalanx of right ring finger and dorsal aspect of middle phalanx of right little finger, laceration(s), the wound is approximately 2 cm(s), with a depth of 0.5 cm(s), of the dorsal aspect of proximal phalanx of right ring finger. 17:36 Neuro: Exam negative for Orientation: is normal, Mentation: is normal, Motor: is normal, moves all fours, Sensation: is normal, no obvious gross deficits. Vital Signs: 17:14 BP 108 / 80; Pulse 58; Resp 20; Temp 99.3(O); Pulse Ox 96% on R/A; Weight 117.93 kg kg (R); Height 6 ft. 6 in. (198.12 cm); Pain 0/10; 17:50 BP 116 / 84; Pulse 64; Resp 18; Pulse Ox 98% on R/A; ld1 17:14 Body Mass Index 30.05 (117.93 kg, 198.12 cm) kg Laceration: 18:24 Wound Repair of 2cm ( 0.8in ) subcutaneous laceration to dorsal aspect of proximal pm1 phalanx of right ring finger. Irregularly shaped.. Distal neuro/vascular/tendon intact. Anesthesia: Digital block administered with 2 mls of 1% lidocaine. Wound prep: Extensive cleansing with betadine with hibiclenz by wi, Wound irrigation with saline by wi, Wound explored extensively, Copious irrigation. Skin closed with 6 4-0 Prolene using simple sutures and sterile technique. Dressed with Neosporin, 4x4's. Patient tolerated well. MDM: 17:27 Patient medically screened. pm1 18:23 Differential diagnosis: dislocation, open fracture, contusion. pm1 18:24 Data reviewed: vital signs. Data interpreted: Pulse oximetry: on room air is 98 %. pm1 Interpretation: normal. Counseling: I had a detailed discussion with the patient and/or guardian regarding: the historical points, exam findings, and any diagnostic results supporting the discharge/admit diagnosis, radiology results, the need for outpatient follow up, a family practitioner, a hand specialist, Suture removal in 10 to 14 days, to return to the emergency department if symptoms worsen or persist or if there are any questions or concerns that arise at home. 05/30 17:31 Order name: Hand Right 3 View XRAY pm1 05/30 17:31 Order name: Dressing - Wound; Complete Time: 19:03 pm1 05/30 17:31 Order name: Gloves, Sterile; Complete Time: 18:02 pm1 05/30 17:31 Order name: Prolene, Sutures; Complete Time: 18:02 pm1 05/30 17:31 Order name: Setup Suture Tray; Complete Time: 18:02 pm1 05/30 18:24 Order name: Splint - Finger; Complete Time: 19:03 pm1 Administered Medications: 18:06 Drug: Tetanus-Diphtheria Toxoid Adult 0.5 ml {Alum Plant Operator: Accurence. Exp: ld1 12/16/2022. Lot #: [id number]. } Route: IM; Site: right deltoid; 18:07 Follow up: Response: No adverse reaction ld1 18:07 Drug: Lidocaine (1 %) 5 ml {Note: Administered by Josué Anton NP.} Volume: 5 ml; ld1 Route: Infiltration; Disposition Summary: 05/30/21 18:27 Discharge Ordered Location: Home pm1 Problem: new pm1 Symptoms: have improved pm1 Condition: Stable pm1 Diagnosis - Laceration without foreign body of right ring finger without damage to nail pm1 Followup: pm1 - With: Emergency Department - When: As needed - Reason: Worsening of condition Followup: pm1 - With: Private Physician - When: 10 - 14 days - Reason: Recheck today's complaints, Continuance of care, Staple/Suture removal, Re-evaluation by your physician Followup: pm1 - With: Parveen Mayo MD - When: 10 - 14 days - Reason: Recheck today's complaints, Continuance of care, Staple/Suture removal, Re-evaluation by your physician Discharge Instructions: - Discharge Summary Sheet pm1 - Cast or Splint Care, Adult pm1 - Laceration Care, Adult pm1 Forms: - Medication Reconciliation Form pm1 - Thank You Letter pm1 - Antibiotic Education pm1 - Prescription Opioid Use pm1 Prescriptions: - Cephalexin 500 mg Oral Capsule - take 1 capsule by ORAL route every 8 hours for 10 days; 30 capsule; Refills: 0, pm1 Product Selection Permitted Addendum: 06/01/2021 07:06 Co-signature as Attending Physician, Keshav Bhatt MD I agree with the assessment and r n plan of care. Attestation: The patient's history, exam findings, diagnostics, and a summary of any interventions or procedures was reviewed in detail with Josué Anton NP. Signatures: Dispatcher [employer] EDKeshav Lyons MD MD rn Marinas, Patrick, NP [employer] pm1 Jacklyn Conroy RN RN ld1 Mary Pan RN RN kg
--- NOTE | 2021-05-30 19:03 | RAD REPORT ---
EXAM DESCRIPTION: RAD - Hand Right 3 View - 05/30/2021 6:01 pm CLINICAL HISTORY: laceration, site not specified COMPARISON: No comparisonsNone. FINDINGS: No fracture is identified. There is no dislocation or periosteal reaction noted. No air o r foreign body in the soft tissues. IMPRESSION: Negative right hand examination.
[2021-05-30 19:42] VITALS: TEMP 99.3
[2021-05-30 19:44] VITALS: BP 116/84; O2SAT 98
== END 2021-05-30 19:03 | disposition home or self-care (01) ==
LOC: ER 16:43
PROC: 0JQJ0ZZ Repair Right Hand Subcutaneous Tissue and Fascia, Open Approach (ICD-10-PCS; principal; 2021-05-30)
DX: S61.214A Laceration without foreign body of right ring finger without damage to nail, initial encounter (principal); W25.XXXA Contact with sharp glass, initial encounter; Y92.009 Unspecified place in unspecified non-institutional (private) residence as the place of occurrence of the external cause; F17.210 Nicotine dependence, cigarettes, uncomplicated; Z23 Encounter for immunization
CPT/HCPCS: 90471; 90714; 99283

== ENCOUNTER 2021-12-01 11:24 | Emergency (ER) | payer OTHER ==
--- OUTSIDE RECORDS SUMMARY | 2021-12-01 11:27 | XMS REPORT | Continuity of Care Document ---
:1980 Author Organization [facility] t Address [address] [place] [address] Care Team Providers Name Role Phone Unavailable Unavailable Unavailable Problems This patient has no known problems. Allergies, Adverse Reactions, Alerts This patient has no known allergies or adverse reactions. Medications This patient has no known medications. Procedures This patient has no known procedures. Results Test Description Test Time Test Comments Results Result Comments Source SARS-CoV-2 (COVID-19), RT-PCR/TMA 2021-10-07 14:21:21 Test Item Value Reference Range Interpretation Comme nts SARS-CoV-2 INTERPRETATION NEGATIVE SEE NOTE S ARS-CoV-2 RNA NOT (test code = 71971) DETECTED Negative results do not preclude SARS-C oV-2 infection and should notb e used as the sole basis for patient management deci sions. Negativeresults must be combined with clinical o bservations, patient history ,and epidemiological information. Optimum specime n types and timingfor peak viral levels during infectio ns caused by SARS-CoV-2 have notbeen determined. Col lection of multiple specim ens or types ofspecimens may be necessary to detect virus. I mproper specimencollect ion and handling, sequence variab ility under primers/probes, or organism present below t he limit of detection may l ead to falsenegative r esults. Positive and negative pr edictive values oftesting are h ighly dependent on prevalence. False negative testresults are more likely when prevalence is h igh. SOURCE (test code = 23916) NOT SPECIFIED Note: Methodology is Alicia Stephane Real-Time RT-PCR. The expected r esult or reference range is NEGATIVE (Not Detected). For more information regarding COVID -19 testing to include clinica linformation, methodology det ail, intended use, FDA author ization andrecommended fact sheets for patients or hea lthcare providers, see NewTest Announcement: S ARS-CoV-2 (COVID-19) by Leeanna MCNAMARA at URL below (note,fact shee ts are provided by method given in report:[email or web address]/ Alternatively, see downloadable PDF fact sheet at:[email or web address]. [employer]/COVID -19-RT-PCR UNLESS OTHERWISE INDIC ATED, ALL TESTING PERFORMED [facility], [place] [address] [place] [address] [phone] LABORATORY DIRE CTOR: ANGEL BURCH M.D. CLIA NUMBER [id number] [place]. [id number] PSA, [id number] 05:29:41 Test Item Value Reference Range Interpretation Comments PSA, TOTAL 0.22 NG/ML See_Comment NOTE: Metho dology is Alicia (test code = Stephane Electroch emiluminescence 2606) Immunoassay tr aceable to WHO reference stand johanna 96/760. UNLESS OTHERW ISE INDICATED, ALL TESTING PER FORMED [facility], [place] [address] [place] [phone] LABORATORY DIRE CTOR: ANGEL BURCH M.D. CLIA NUMBER [id number] CAP ACCREDITATION N O. [id number] [Automated mess age] The system which generated this result transmitted ref erence range: <=4.00. The ref erence range was not used to int erpret this result as radha l/abnormal. COMPREHENSIVE METABOLIC [id number] 05:19:58 Test Item Value Reference Range Interpretation Comments GLUCOSE (test code = 107 MG/DL 70-99 H 2216) BUN (test code = 9 MG/DL 6-20 2207) CREATININE (test 0.97 MG/DL 0.80-1.40 EFFECTIVE code = 2214) 08/29/2021, [facility] HAS IMPLEMENTED THE NKF-ASN RECOMME NDED KD-EPI EGF R REFIT CALCULATI ON THAT DOES NOT INCLUDE A COEFFICIENT FOR RACE. FOR MORE INFORMATION, SE E ANNOUNCEMENT [email or web address] eGFR (2020 CKD-EPI) 102 >60 (test code = 41138) ML/MIN/1.73 CALC BUN/CREAT (test 9 RATIO 6-28 code = 2235) SODIUM (test code = 146 MEQ/L 057-523 2869) POTASSIUM (test code 4.8 MEQ/L 3.5-5.4 = 2227) CHLORIDE (test code 106 MEQ/L 95-107 = 2214) CARBON DIOXIDE (test 31 MEQ/L 19-31 code = 220) CALCIUM (test code = 10.1 MG/DL 8.5-10.5 2208) PROTEIN, TOTAL (test 7.5 G/DL 6.1-8.3 code = 2228) ALBUMIN (test code = 4.5 G/DL 3.5-5.2 2200) CALC GLOBULIN (test 3.0 G/DL 1.9-3.7 code = 224) CALC A/G RATIO (test 1.5 RATIO 1.0-2.6 code = 223) BILIRUBIN, TOTAL 0.3 MG/DL See_Comment [Automated message] (test code = 2206) The syste m which generated this result transmit edvin reference range : <=1.2. The refe rence range was not u sed to interpret th is result as normal/abnormal . ALKALINE PHOSPHATASE 92 U/L 40-117 (test code = 2203) AST (test code = 22 U/L 9-50 2217) ALT (test code = 22 U/L 5-50 2218)
[2021-12-01] MEDS ORDERED: DIAZEPAM 5 MG TABLET ONE (11:43)
[2021-12-01] MEDS ORDERED: HYDROCODONE/APAP 5/325 MG TAB ONE (11:43)
--- NOTE | 2021-12-01 13:18 | ER ---
Nurse's Notes [facility] Name: Shaw Jacome Age: 41 yrs Sex: Male : 1980 Arrival Date: 12/01/2021 Time: 11:27 Bed 19 Private MD: Diagnosis: Lumbago with sciatica, left side Presentation: 12/01 11:30 Chief complaint: Patient states: my back started hurting months maybe 1 year aog. i tw2 think its my sciatica. worse this morning. LEFT side. Coronavirus screen: At this time, the client does not indicate any symptoms associated with coronavirus-19. Ebola Screen: Patient denies travel to an Ebola-affected area in the 21 days before illness onset. Initial Sepsis Screen: Does the patient meet any 2 criteria? No. Patient's initial sepsis screen is negative. Does the patient have a suspected source of infection? No. Patient's initial sepsis screen is negative. Risk Assessment: Do you want to hurt yourself or someone else? Patient reports no desire to harm self or others. Onset of symptoms was December 01, 2021. 11:30 Method Of Arrival: Ambulatory tw2 11:30 Acuity: CHERRY 4 tw2 11:[address] Hall in triage at this performing assessment. tw2 Triage Assessment: 11:32 General: Appears in no apparent distress. uncomfortable, Behavior is calm, cooperative, tw2 appropriate for age. Pain: Complains of pain in left low back Pain radiates to left leg. Musculoskeletal: Range of motion: intact in all extremities. Historical: - Allergies: 11:31 No Known Drug Allergies; tw2 - Home Meds: 11:31 None [Active]; tw2 - PMHx: 11:31 Underdeveloped lungs as an infant; tw2 - Immunization history:: Adult Immunizations. - Social history:: Patient uses street drugs, marijuana, daily, Smoking status: . Screenin:32 Abuse screen: Denies threats or abuse. Nutritional screening: No deficits noted. tw2 Tuberculosis screening: No symptoms or risk factors identified. Fall Risk None identified. Assessment: 11:42 General: Appears in no apparent distress. uncomfortable, Behavior is calm, cooperative, ab2 appropriate for age. Pain: Complains of pain in back Pain currently is 6 out of 10 on a pain scale. Neuro: Level of Consciousness is awake, alert, obeys commands, Oriented to person, place, time, situation, Appropriate for age Cross Tie Maker are equal bilaterally Moves all extremities. Gait is steady, Speech is normal. Cardiovascular: No deficits noted. Denies chest pain, shortness of breath, Heart tones S1 S2 present Patient's skin is warm and dry. Respiratory: No deficits noted. Airway is patent Respiratory effort is even, unlabored, Respiratory pattern is regular, symmetrical, Breath sounds are clear bilaterally. GI: No deficits noted. No signs and/or symptoms were reported involving the gastrointestinal system. : No deficits noted. No signs and/or symptoms were reported regarding the genitourinary system. EENT: No deficits noted. No signs and/or symptoms were reported regarding the EENT system. Derm: Skin is intact, is healthy with good turgor, Skin is pink, warm \T\ dry. Musculoskeletal: Reports pain in back. 12:43 Reassessment: Patient appears in no apparent distress at this time. Pain level is now ab2 5/10 after giving medication. Vital Signs: 11:30 BP 139 / 82; Pulse 77; Resp 17; Temp 98.8(TE); Pulse Ox 97% on R/A; tw2 12:42 BP 109 / 83; Pulse 76; Resp 17; Pulse Ox 98% on R/A; Pain 5/10; ab2 ED Course: 11:27 Patient arrived in ED. ds1 11:29 Yuval Hall DO is Attending Physician. ms3 11:31 Triage completed. tw2 11:31 Arm band placed on. tw2 11:33 Bed in low position. Call light in reach. Adult w/ patient. tw2 11:34 Antonio Thornton is Primary Nurse. ab2 11:44 No provider procedures requiring assistance completed. ab2 13:17 Tani Wintre MD is Referral Physician. ms3 13:27 Patient did not have IV access during this emergency room visit. ab2 Administered Medications: 11:42 Drug: HYDROcodone-acetaminophen 5 mg-325 mg 1 tabs Route: PO; ab2 12:43 Follow up: Response: No adverse reaction ab2 11:42 Drug: Valium (diazepam) 5 mg Route: PO; ab2 12:43 Follow up: Response: No adverse reaction ab2 Outcome: 13:17 Discharge ordered by . ms3 13:27 Discharged to home ambulatory, with family. ab2 13:27 Condition: good 13:27 Discharge instructions given to patient, Instructed on discharge instructions, follow up and referral plans. medication usage, Demonstrated understanding of instructions, follow-up care, medications, Prescriptions given X 2. 13:27 Patient left the ED. ab2 Signatures: Kisha Ogden ds1 sAhley Sierra RN RN tw2 Yuval Hall, DO ms3 Antonio Thornton ab2
--- NOTE | 2021-12-01 13:18 | EDPHYS ---
Physician Documentation [facility] Name: Shaw Jacome Age: 41 yrs Sex: Male : 1980 Arrival Date: 12/01/2021 Time: 11:27 Bed 19 Private MD: ED Physician Yuval Hall HPI: 12/01 11:33 This 41 yrs old Male presents to ER via Ambulatory with complaints of Back Pain. ms3 11:33 The patient presents with pain that is chronic. The symptoms are located in the low ms3 back. Onset: The symptoms/episode began/occurred 1 year(s) ago. The pain radiates to the left leg. Associated signs and symptoms: The patient has no apparent associated signs or symptoms. Modifying factors: The patient symptoms are alleviated by nothing, the patient symptoms are aggravated by nothing. 41-year-old male presents for left-sided back pain that radiates down his left leg. Patient states he is experienced this over the previous year. 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 Patient states his pain is currently 10 out of 10 and described as sharp. Patient denies alleviating or inciting factors. Patient denies fevers, chills, bowel or bladder incontinence, IV drug use.. Historical: - Allergies: 11:31 No Known Drug Allergies; tw2 - Home Meds: 11:31 None [Active]; tw2 - PMHx: 11:31 Underdeveloped lungs as an ; tw2 - Immunization history:: Adult Immunizations. - Social history:: Patient uses street drugs, marijuana, daily, Smoking status: . ROS: 11:33 Constitutional: Negative for fever, and chills. ENT: Negative for injury, pain, and ms3 discharge, Neck: Negative for injury, pain, and swelling, Cardiovascular: Negative for chest pain, and palpitations. Respiratory: Negative for shortness of breath, cough, wheezing, and pleuritic chest pain, Abdomen/GI: Negative for abdominal pain, nausea, vomiting, diarrhea, and constipation, MS/Extremity: Negative for injury and deformity, Skin: Negative for injury, rash, and discoloration. 11:33 Back: Positive for pain at rest, radiated pain, of the left low back. 11:33 All other systems are negative. Exam: 11:33 Constitutional: This is a well developed, well nourished patient who is awake, alert, ms3 and in no acute distress. Head/Face: Normocephalic, atraumatic. ENT: Nares patent. No nasal discharge, no septal abnormalities noted. Tympanic membranes are normal and external auditory canals are clear. Oropharynx with no redness, swelling, or masses, exudates, or evidence of obstruction, uvula midline. Mucous membranes moist. Neck: Trachea midline, no cervical lymphadenopathy. Supple, full range of motion without nuchal rigidity, or vertebral point tenderness. No Meningismus. Chest/axilla: Normal chest wall appearance and motion. Nontender with no deformity. Cardiovascular: Regular rate and rhythm with a normal S1 and S2. No gallops, murmurs, or rubs. Normal PMI, no JVD. No pulse deficits. Respiratory: Lungs have equal breath sounds bilaterally, clear to auscultation and percussion. No rales, rhonchi or wheezes noted. No increased work of breathing, no retractions or nasal flaring. Abdomen/GI: Soft, non-tender, with normal bowel sounds. No distension or tympany. No guarding or rebound. No evidence of tenderness throughout. Skin: Warm, dry with normal turgor. Normal color with no rashes, no lesions, and no evidence of cellulitis. Psych: Awake, alert, with orientation to person, place and time. Behavior, mood, and affect are within normal limits. 11:33 Back: pain, that is severe, vertebral tenderness, is not appreciated, muscle spasm, is appreciated in the left low back. Vital Signs: 11:30 BP 139 / 82; Pulse 77; Resp 17; Temp 98.8(TE); Pulse Ox 97% on R/A; tw2 12:42 BP 109 / 83; Pulse 76; Resp 17; Pulse Ox 98% on R/A; Pain 5/10; ab2 MDM: 11:33 Patient medically screened. ms3 13:17 Differential diagnosis: chronic back pain, Osteoarthritis ruptured disc. ms3 13:17 Data reviewed: vital signs, nurses notes. Counseling: I had a detailed discussion with ms3 the patient and/or guardian regarding: the historical points, exam findings, and any diagnostic results supporting the discharge/admit diagnosis, radiology results, the need for outpatient follow up, to return to the emergency department if symptoms worsen or persist or if there are any questions or concerns that arise at home. ED course: Patient improved after [place] and Valium. Patient without bowel or bladder incontinence, ambulatory in ED, no numbness noted, FROM UE and LE. Patient to follow up with PMD as discussed. All questions answered. Return precautions given to include worsening symptoms, or any other concerns. Administered Medications: 11:42 Drug: HYDROcodone-acetaminophen 5 mg-325 mg 1 tabs Route: PO; ab2 12:43 Follow up: Response: No adverse reaction ab2 11:42 Drug: Valium (diazepam) 5 mg Route: PO; ab2 12:43 Follow up: Response: No adverse reaction ab2 Disposition Summary: 12/01/21 13:17 Discharge Ordered Location: Home ms3 Condition: Stable ms3 Diagnosis - Lumbago with sciatica, left side ms3 Followup: ms3 - With: Tani Winter MD - When: 2 - 3 days - Reason: Discharge Instructions: - Discharge Summary Sheet tw2 - Chronic Back Pain ms3 - Sciatica ms3 Forms: - Work release form tw2 - Medication Reconciliation Form ms3 - Thank You Letter ms3 - Antibiotic Education ms3 - Prescription Opioid Use ms3 Prescriptions: - Ibuprofen 600 mg Oral Tablet - take 1 tablet by ORAL route every 6 hours As needed take with food; 30 tablet; ms3 Refills: 0, Product Selection Permitted - Cyclobenzaprine 5 mg Oral Tablet - take 1 tablet by ORAL route 3 times per day As needed; 15 tablet; Refills: 0, ms3 Product Selection Permitted Signatures: Ashley Sierra RN RN tw2 Yuval Hall DO DO ms3 Antonio Thornton ab2 Corrections: (The following items were deleted from the chart) 15:25 15:23 Differential diagnosis: chronic back pain, Osteoarthritis ruptured disc, ms3 ms3 15:25 15:23 Data reviewed: vital signs, nurses notes, ms3 ms3
[2021-12-01 13:44] VITALS: TEMP 98.8
[2021-12-01 13:45] VITALS: BP 109/83; O2SAT 98
== END 2021-12-01 13:27 | disposition home or self-care (01) ==
LOC: ER 11:24
DX: M54.42 Lumbago with sciatica, left side (principal)
CPT/HCPCS: 99283

== ENCOUNTER 2021-12-29 20:51 | Emergency (ER) | payer OTHER ==
--- OUTSIDE RECORDS SUMMARY | 2021-12-29 20:53 | XMS REPORT | Continuity of Care Document ---
:1980 Author Organization [facility] t Address [address] [place] [address] Care Team Providers Name Role Phone Unavailable [...] S ARS-CoV-2 RNA NOT (test code = 23276) DETECTED Negative results do not preclude SARS-C [...] is h igh. SOURCE (test code = 61983) NOT SPECIFIED Note: Methodology is Alicia Stephane [...] are provided by method given in report:https:// [email or web address] Alternatively, see downloadable PDF fact sheet at:https://www. TechZel/COVID -19-RT-PCR UNLESS OTHERWISE INDIC ATED, ALL TESTING PERFORMED [facility], I MD. [address] [place] [address] 78 54 LABORATORY DIRE CTOR: ANGEL BURCH M.D. CLIA NUMBER [id number] [place]. [id number] PSA, [id number] 05:29:41 Test Item Value Reference Range Interpretation Comments PSA, TOTAL 0.22 NG/ML See_Comment NOTE: Metho dology is Alicia (test code = Stephane Electroch emiluminescence 2606) Immunoassay tr aceable to WHO reference stand johanna 96/760. UNLESS OTHERW ISE INDICATED, ALL TESTING PER FORMED [facility], I MD. [address] [place] [address] LABORATORY DIRE CTOR: ANGEL BURCH M.D. CLIA NUMBER [id number] CAP ACCREDITATION N O. [id number] [Automated mess age] The system which generated this result transmitted ref erence range: <=4.00. The ref erence range was not used to int erpret this result as radha l/abnormal. COMPREHENSIVE METABOLIC [id number] 05:19:58 Test Item Value Reference Range Interpretation Comments GLUCOSE (test code = 107 MG/DL 70-99 H 2216) BUN (test code = 9 MG/DL 6-20 2207) CREATININE (test 0.97 MG/DL 0.80-1.40 EFFECTIVE code = 2214) 08/29/2021, [facility] HAS IMPLEMENTED THE NKF-ASN RECOMME NDED KD-EPI EGF R REFIT CALCULATI ON THAT DOES NOT INCLUDE A COEFFICIENT FOR RACE. FOR MORE INFORMATION, SE E ANNOUNCEMENT [email or web address] eGFR (2020 CKD-EPI) 102 >60 (test code = 25477) ML/MIN/1.73 CALC BUN/CREAT (test 9 RATIO 6-28 code = 2235) SODIUM (test code = 146 MEQ/L 672-433 8920) POTASSIUM (test code 4.8 MEQ/L 3.5-5.4 = [...]
[2021-12-29] MEDS ORDERED: FLUORESCEIN SODIUM 1 MG/WRAP ONE (21:53)
[2021-12-29] MEDS ORDERED: TETRACAINE HCL 0.5% 4ML OPTH ONE ×2 (21:53→23:11)
[2021-12-29] MEDS ORDERED: NA CHLORIDE 0.9% 500 ML ONE (23:47)
--- NOTE | 2021-12-30 00:02 | ER ---
Nurse's Notes [facility] Name: Shaw Jacome Age: 41 yrs Sex: Male : 1980 Arrival Date: 12/29/2021 Time: 20:54 Bed 23 Private MD: Diagnosis: Unspecified acute conjunctivitis, left eye-chemical Presentation: 12/29 21:10 Chief complaint: Patient states: I was in the shower shaving my head and I turn my head jb4 to check my phone and My left eye started burning and has not stopped. I tried to flush it out for 10 minutes with no relief. I also tried some generic medicated eye drops and they did not help. Coronavirus screen: At this time, the client does not indicate any symptoms associated with coronavirus-19. Ebola Screen: No symptoms or risks identified at this time. Initial Sepsis Screen: Does the patient meet any 2 criteria? No. Patient's initial sepsis screen is negative. Does the patient have a suspected source of infection? No. Patient's initial sepsis screen is negative. 21:10 Method Of Arrival: Ambulatory jb4 21:10 Risk Assessment: Do you want to hurt yourself or someone else? Patient reports no jb4 desire to harm self or others. Onset of symptoms was December 29, 2021. Transition of care: patient was not received from another setting of care. 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 - Social history:: Smoking status: Patient reports the use of cigarette tobacco products, smokes one pack cigarettes per day. Screenin:45 Abuse screen: Denies threats or abuse. Denies injuries from another. Nutritional wh screening: No deficits noted. Tuberculosis screening: No symptoms or risk factors identified. Fall Risk None identified. Assessment: 21:30 General: Appears in no apparent distress. uncomfortable, Behavior is calm, cooperative, wh appropriate for age. Pain: Complains of pain in left eye. Neuro: Level of Consciousness is awake, alert, obeys commands, Oriented to person, place, time, situation, Appropriate for age. Cardiovascular: Capillary refill < 3 seconds. Respiratory: Airway is patent Respiratory effort is even, unlabored, Respiratory pattern is regular, symmetrical. GI: Abdomen is flat, non-distended. : No signs and/or symptoms were reported regarding the genitourinary system. EENT: Sclera/Cornea are reddened in left eye. Derm: Skin is intact, is healthy with good turgor, Skin is pink, warm \\T\\ dry. normal. Musculoskeletal: Circulation, motion, and sensation intact. 22:45 Reassessment: Patient appears in no apparent distress at this time. Patient and/or wh family updated on plan of care and expected duration. Pain level reassessed. Patient is alert, oriented x 3, equal unlabored respirations, skin warm/dry/pink. 12/30 00:00 Reassessment: Eren lens removed per pt request. Pt states " I appreciate what you jb4 guys are trying to do but I cannot take the entire bag. I got to go man." Provider notified. Vital Signs: 12/29 21:10 BP 126 / 78; Pulse 72; Resp 16; Temp 99.0; Pulse Ox 98% on R/A; Weight 113.4 kg (R); jb4 Height 6 ft. 6 in. (198.12 cm) (R); Pain 10/10; 12/30 00:00 BP 126 / 92; Pulse 58; Resp 18; Pulse Ox 98% on R/A; wh 12/29 21:10 Body Mass Index 28.89 (113.40 kg, 198.12 cm) jb4 ED Course: 12/29 20:54 Patient arrived in ED. mr 21:10 Arm band placed on right wrist. jb4 21:12 Triage completed. bb 21:45 Patient has correct armband on for positive identification. Bed in low position. Call light in reach. Side rails up X 1. Pulse ox on. NIBP on. 21:47 Jorge Santana MD is Attending Physician. kdr 21:49 Purvi Walls, JO ANN is Primary Nurse. 12/30 00:00 Audrey Vargas MD is Referral Physician. kdr 00:23 No provider procedures requiring assistance completed. Patient did not have IV access during this emergency room visit. Administered Medications: 12/29 23:10 Drug: Tetracaine Drops 0.5 % 1 drops Route: Ophthalmic; Site: left eye; 12/30 00:25 Follow up: Response: No adverse reaction Outcome: 00:01 Discharge ordered by . kdr 00:10 Discharged to home ambulatory. 00:10 Condition: stable 00:10 Discharge instructions given to patient, Instructed on discharge instructions, follow up and referral plans. medication usage, POC Demonstrated understanding of instructions, follow-up care, medications, POC Prescriptions given X 1. 00:25 Patient left the ED. Signatures: Jorge Santana MD MD kdr Rivera, Mary TorresMarisa RN RN Kelby Baez RN RN [facility] Purvi Walls RN RN Corrections: (The following items were deleted from the chart) 12/29 22:35 21:10 Chief complaint: Patient states: I was in the shower shaving my head and I turn jb4 my head to check my phone and My left eye started burning and has not stopped. I tried to flush it out for 10 minutes with no relief. I also tried some generic medicated eye drops and they did not help. 22:35 21:10 Coronavirus screen: At this time, the client does not indicate any symptoms jb4 associated with coronavirus-19. 22:35 21:10 Ebola Screen: No symptoms or risks identified at this time. [facility] 22:35 21:10 Initial Sepsis Screen: Does the patient meet any 2 criteria? No. Patient's 4 initial sepsis screen is negative. Does the patient have a suspected source of infection? No. Patient's initial sepsis screen is negative. 22:35 21:10 Risk Assessment: Do you want to hurt yourself or someone else? Patient reports no [facility] desire to harm self or others. 22:35 21:10 Onset of symptoms was December 29, 2021 [facility] 22:35 21:10 Transition of care: patient was not received from another setting of care. [facility] 22:35 21:10 Method Of Arrival: Ambulatory [facility] 22:35 21:10 BP 126 / 78; Pulse 72bpm; Resp 16bpm; Pulse Ox 98% RA; Temp 99.0F; 113.4 kg jb4 Reported; Height 6 ft. 6 in. Reported; BMI: 28.8; Pain 06/26; bb 22:35 21:10 Acuity: CHERRY 4 monica 4 :36 21:12 Allergies: No Known Allergies; monica 4 36 21:12 Home Meds: None; monica 4 36 21:12 PMHx: Underdeveloped lungs as an ; monica 4 36 21:12 PSHx: None; monica 4 :36 21:12 Immunization history: Adult Immunizations up to date, monica [facility] 21:12 Social history: Smoking status: Patient reports the use of cigarette tobacco 4 products, smokes one pack cigarettes per day. :36 21:12 EKG completed in triage. Results shown to MD. monica Sujey 21:12 EKG completed in triage. Results shown to MD. monica [facility] 21:12 Arm band placed on right wrist. monica [facility]
--- NOTE | 2021-12-30 00:02 | EDPHYS ---
Physician Documentation [facility] Name: Shaw Jacome Age: 41 yrs Sex: Male : 1980 Arrival Date: 12/29/2021 Time: 20:54 Bed 23 Private MD: ED Physician Jorge Santana HPI: 12/30 03:21 This 41 yrs old Male presents to ER via Ambulatory with complaints of Eye Problem. kdr 03:21 The patient is experiencing burning, The patient sustained Unknown. to the left eye, kdr caused by an unknown mechanism, Patient states that he was shaving his head in the shower when his phone rang. He indicated that he attempted to reach over to the following but first wiped the water away from his face at that point he had immediate pain in his eye. It has continued. He tried to wash it out while in the shower by holding his eye open and extended., Several minutes and, without resolution or resolve of the eye pain. This happened about 2 or 3 hours prior to his arrival here. Onset: The symptoms/episode began/occurred suddenly, 3 hour(s) ago. Duration: the symptoms are continuous. Aggravated by blinking, closing eye, opening eye, pressure, rubbing, Alleviated by nothing. Associated signs and symptoms: Pertinent positives: None. Pertinent negatives: None. Patient does not utilize any form of vision correction. Severity of symptoms: At their worst the symptoms were mild in the emergency department the symptoms are unchanged. The patient has not experienced similar symptoms in the past. 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 - Social history:: Smoking status: Patient reports the use of cigarette tobacco products, smokes one pack cigarettes per day. ROS: 12/30 03:25 Constitutional: Negative for fever, chills, and weight loss, ENT: Negative for injury, kdr pain, and discharge, Neck: Negative for injury, pain, and swelling, Cardiovascular: Negative for chest pain, palpitations, and edema. Eyes: Positive for blurry vision, pain, photophobia, redness, of the left upper eyelid, left outer canthus, outer aspect of conjuctiva of left eye, iris of left eye, inner aspect of conjunctiva of left eye and left inner canthus. Exam: 03:25 Constitutional: This is a well developed, well nourished patient who is awake, alert, kdr and in no acute distress. Head/Face: Normocephalic, atraumatic. Neck: Trachea midline, no thyromegaly or masses palpated, and no cervical lymphadenopathy. Supple, full range of motion without nuchal rigidity, or vertebral point tenderness. No Meningismus. Chest/axilla: Normal chest wall appearance and motion. Nontender with no deformity. No lesions are appreciated. Cardiovascular: Regular rate and rhythm with a normal S1 and S2. No gallops, murmurs, or rubs. Normal PMI, no JVD. No pulse deficits. Respiratory: Lungs have equal breath sounds bilaterally, clear to auscultation and percussion. No rales, rhonchi or wheezes noted. No increased work of breathing, no retractions or nasal flaring. Abdomen/GI: Soft, non-tender, with normal bowel sounds. No distension or tympany. No guarding or rebound. No evidence of tenderness throughout. Back: No spinal tenderness. No costovertebral tenderness. Full range of motion. Skin: Warm, dry with normal turgor. Normal color with no rashes, no lesions, and no evidence of cellulitis. MS/ Extremity: Pulses equal, no cyanosis. Neurovascular intact. Full, normal range of motion. Neuro: Awake and alert, GCS 15, oriented to person, place, time, and situation. Cranial nerves II-XII grossly intact. Motor strength 5/5 in all extremities. Sensory grossly intact. Cerebellar exam normal. Normal gait. Psych: Awake, alert, with orientation to person, place and time. Behavior, mood, and affect are within normal limits. 03:25 Eyes: Periorbital structures: appear normal, Pupils: equal, round, and reactive to light and accomodation, Extraocular movements: intact throughout, Conjunctiva: normal, Corneas: are normal, Sclera: Lateral aspect of the eye was injected. 03:28 Eyes: Anterior chamber: normal, Lids and lashes: appear normal, Examination of the kdr other eye reveals no obvious gross abnormality. Vital Signs: 12/29 21:10 BP 126 / 78; Pulse 72; Resp 16; Temp 99.0; Pulse Ox 98% on R/A; Weight 113.4 kg (R); jb4 Height 6 ft. 6 in. (198.12 cm) (R); Pain 10/10; 12/30 00:00 BP 126 / 92; Pulse 58; Resp 18; Pulse Ox 98% on R/A; wh 12/29 21:10 Body Mass Index 28.89 (113.40 kg, 198.12 cm) jb4 MDM: 00:01 Patient medically screened. kdr 03:25 Data reviewed: vital signs, nurses notes. Counseling: I had a detailed discussion with kdr the patient and/or guardian regarding: the historical points, exam findings, and any diagnostic results supporting the discharge/admit diagnosis, the need for outpatient follow up. 03:28 ED course: Patient was stable in the ED. He had nearly instantaneous relief of his pain kdr in his left thigh with the tetracaine. Pain however did not stay away long and return. Sensory exam did not evidence of a foreign body or corneal abrasion or even scleral injury, it was decided to thoroughly rinse the eye with a Eren lens. 1/2 cc of tetracaine were injected into a 500 cc bolus of normal saline. The Eren lens was then placed in the patient's left eye however he did not tolerate it well and soon afterwards as his pain had essentially resolved and that he was wanting to be discharged. The patient seemed to tolerate the procedure in general and certainly was not toxic or that there appear to be any acute threat to his vision or left orbit at the time of discharge.. 12/29 23:42 Order name: [facility]. Order: Place 2.5 cc Tetracaine in 500 ml and infuse through Eren kdr lense in left eye (OS); Complete Time: 23:59 Administered Medications: 12/29 23:10 Drug: Tetracaine Drops 0.5 % 1 drops Route: Ophthalmic; Site: left eye; 12/30 00:25 Follow up: Response: No adverse reaction Disposition Summary: 12/30/21 00:01 Discharge Ordered Location: Home kdr Problem: new kdr Symptoms: have improved kdr Condition: Fair kdr Diagnosis - Unspecified acute conjunctivitis, left eye - chemical kdr Followup: kdr - With: Audrey Vargas MD - When: 2 - 3 days - Reason: If symptoms return, Further diagnostic work-up, Recheck today's complaints, Continuance of care, Re-evaluation by your physician Discharge Instructions: - Discharge Summary Sheet kdr - Chemical Conjunctivitis, Adult, Eymk-ei-Bcgb kdr Forms: - Medication Reconciliation Form kdr - Thank You Letter kdr - Prescription Opioid Use kdr Prescriptions: - Tramadol 50 mg Oral Tablet - take 1 tablet by ORAL route every 8 hours as needed; 12 tablet; Refills: 0, kdr Product Selection Permitted Signatures: Jorge Santana MD MD kdr Marisa Torres RN RN Kelby Baez RN RN jb4 Purvi Walls RN RN Corrections: (The following items were deleted from the chart) 12/29 21:50 21:50 Splint - Ankle: Aircast ordered. kdr kdr 21:51 21:50 Crutches ordered. kdr kdr 22:36 21:12 Allergies: No Known Allergies; bb jb4 22:36 21:12 Home Meds: None; bb jb4 22:36 21:12 PMHx: Underdeveloped lungs as an infant; bb jb4 22:36 21:12 PSHx: None; bb jb4 22:36 21:12 Immunization history: Adult Immunizations up to date, jb4 22:36 21:12 Social history: Smoking status: Patient reports the use of cigarette tobacco jb4 products, smokes one pack cigarettes per day. bb
[2021-12-30 08:58] VITALS: BP 126/78; TEMP 99; O2SAT 98
== END 2021-12-30 00:25 | disposition home or self-care (01) ==
LOC: ER 20:51
DX: H10.32 Unspecified acute conjunctivitis, left eye (principal); F17.210 Nicotine dependence, cigarettes, uncomplicated
CPT/HCPCS: 99283; J7040

== ENCOUNTER 2022-04-18 19:59 | Emergency (ER) | payer OTHER ==
--- OUTSIDE RECORDS SUMMARY | 2022-04-18 20:01 | XMS REPORT | Continuity of Care Document ---
:1980 Author Organization [facility] t Address [address] [place] [address] Care Team Providers Name Role Phone Unavailable [...] S ARS-CoV-2 RNA NOT (test code = 72340) DETECTED Negative results do not preclude SARS-C [...] is h igh. SOURCE (test code = 27425) NOT SPECIFIED Note: Methodology is Alicia Stephane Real-Time RT-PCR. The expected result or reference range is NEGATI VE (Not Detected). For more information regarding COVID -19 testing to include clinica linformation, methodology det ail, intended use, FDA author ization andrecommended fact sheets for patients or hea lthcare providers, see NewTest Announcement: S ARS-CoV-2 (COVID-19) by Leeanna MCNAMARA at URL below (note,fact shee ts are provided by method given in report:https:// [email or web address] Alternatively, see downloadable PDF fact sheet at:https://www. Powerset/COVID -19-RT-PCR UNLE SS OTHERWISE INDICATED, ALL TESTING PERFORMED ATCLINICAL PATH [facility]. [address] [place], [place] [address] EMERGENCY ROOM CLINICIAN: Skylar JUAREZ NUMBE R [id number] CAP ACCREDITATION N O. [id number] PSA, [id number] 05:29:41 Test Item Value Reference Range Interpretation Comments PSA, TOTAL 0.22 NG/ML See_Comment NOTE: Methodol ogy is Alicia (test code = Stephane Electroch emiluminescence 2606) Immunoassay tra ceable to WHO reference stand johanna 96/760. UNLESS OTHERWIS E INDICATED, ALL TESTING PERFORM ED ATCLINICAL PATHOLOGY [facility], [facility]. [address] [place] [address] LABORATORY DIRE CTOR: ANGEL BURCH M.D. CLIA NUMBER [id number] [place]. [id number] [A utomated message] The sy stem which generated this result transmitted ref erence range: <=4.00. The ref erence range was not used to int erpret this result as radha l/abnormal. COMPREHENSIVE METABOLIC [id number] 05:19:58 Test Item Value Reference Range Interpretation Comments GLUCOSE (test code = 107 MG/DL 70-99 H 2216) BUN (test code = 9 MG/DL 6-20 2207) CREATININE (test 0.97 MG/DL 0.80-1.40 EFFECTIVE code = 2214) 08/29/2021, [facility] HAS IMPLEMENTED THE NKF-ASN RECOMME NDED KD-EPI EGF R REFIT CALCULATI ON THAT DOES NOT INCLUDE A COEFFICIENT FOR RACE. FOR MORE INFORMATION, SE E ANNOUNCEMENT [email or web address] eGFR (2020 CKD-EPI) 102 >60 (test code = 60908) ML/MIN/1.73 CALC BUN/CREAT (test 9 RATIO 6-28 code = 2235) SODIUM (test code = 146 MEQ/L 139-891 3024) POTASSIUM (test code 4.8 MEQ/L 3.5-5.4 = 2227) CHLORIDE (test code 106 MEQ/L 95-107 = 2214) CARBON DIOXIDE (test 31 MEQ/L 19-31 code = 220) CALCIUM (test code = 10.1 MG/DL 8.5-10.5 2208) PROTEIN, TOTAL (test 7.5 G/DL 6.1-8.3 code = 2228) ALBUMIN (test code = 4.5 G/DL 3.5-5.2 2200) CALC GLOBULIN (test 3.0 G/DL 1.9-3.7 code = 2239) CALC A/G RATIO (test 1.5 RATIO 1.0-2.6 [...]
[2022-04-18 20:35] LABS: Absolute Lymphocytes (CBC) 0.4 K/uL (0.7-4.9); Hematocrit 43.4 % (39.6-49.0); Lymphocytes % 6.2 % (15.3-44.8); MCV 90.3 fL (80-100); MPV 8.1 fL (7.6-11.3)
[2022-04-18] MEDS ORDERED: LEVALBUTEROL 1.25 MG/3 ML NEB ONE (20:35)
[2022-04-18 20:54] LABS: Potassium 3.6 mmol/L (3.5-5.1); Troponin High Sensitivity 3.7 pg/mL (<58.9)
--- NOTE | 2022-04-18 20:57 | RAD REPORT ---
EXAM DESCRIPTION: RAD - Chest Single View - 04/18/2022 8:46 pm CLINICAL HISTORY: chest pain Chest pain. COMPARISON: Chest Pa And Lat (2 Views) dated 07/28/2020; Chest Pa And Lat (2 Views) dated 11/22/2019; Chest Single View dated 09/29/2019 FINDINGS: Portable technique limits examination quality. Vroy-tg-jrntgnss bilateral interstitial prominence is seen which may indicate a viral infection. Mild pulmonary edema is another possibility. The heart is upper limit of normal in size. No displaced fra ctures.
--- NOTE | 2022-04-18 21:04 | RAD REPORT ---
EXAM DESCRIPTION: CT - Chest For Pe Angio - 04/18/2022 8:54 pm CLINICAL HISTORY: Chest pain. tachycardic, tachypneic, eval for PE COMPARISON: No comparisons TECHNIQUE: CT angiogram of the pulmonary arteries was performed with MIP. All CT scans are performed using dose optimization technique as appropriate and may include automated exposure control or mA/KV adjustment according to patient size. FINDINGS: No evidence of pulmonary thromboembolism. No acute aortic finding demonstrated. The lungs are clear. No significant pericardial or pleural fluid. No concerning bony finding. IMPRESSION: No evidence of pulmonary thromboembolism. No acute lung findings.
[2022-04-19 06:43] VITALS: TEMP 99.8; O2SAT 96
[2022-04-19 06:46] VITALS: BP 119/78
--- NOTE | 2022-04-19 07:20 | EKG ---
Test Date: 2022-04-18 Test Time: 20:08:47 Aids Counselor: FELIZ MEASUREMENT RESULTS: Intervals: Rate: 96 MA: 160 QRSD: 76 QT: 316 QTc: 399 [place]: P: 59 MA: 160 QRS: 60 T: 42 INTERPRETIVE STATEMENTS: Normal sinus rhythm Normal ECG Compared to ECG 09/29/2019 11:08:21 No significant changes Electronically Signed On 04-19-22 07:19:18 CDT by Hollis Mojica
--- NOTE | 2022-04-19 10:35 | EDPHYS ---
Physician Documentation [facility] Name: Shaw Jacome Age: 41 yrs Sex: Male : 1980 Arrival Date: 04/18/2022 Time: 20:03 Bed 15 Private MD: ED Physician Keshav Bhatt HPI: 04/18 20:14 This 41 yrs old Male presents to ER via Ambulatory with complaints of Chest Pain. rn 20:14 The patient or guardian reports chest pain that is located primarily in the chest rn diffusely. Onset: 2 week(s) ago. The pain radiates to back. Associated signs and symptoms: Pertinent positives: cough, shortness of breath, Pertinent negatives: abdominal pain, diaphoresis, lower extremity swelling, palpitations. The chest pain is described as sharp, stabbing. Duration: The patient or guardian reports multiple episodes, that are intermittent, the episodes last approximately 2 minute(s). Modifying factors: The symptoms are alleviated by nothing. the symptoms are aggravated by cough, deep breath. Severity of pain: At its worst the pain was mild in the emergency department the pain is actually worse. The patient has not experienced similar symptoms in the past. The patient has not recently seen a physician. Historical: - Allergies: 20:07 No Known Allergies; eh3 - PMHx: 20:07 Under devoloped lungs as an infant; eh3 - Immunization history:: Adult Immunizations unknown. - Social history:: Smoking status: Patient reports the use of cigarette tobacco products, smokes one pack cigarettes per day. Patient uses alcohol, occasionally. street drugs, marijuana. - Family history:: Father has/had heart disease, hypertension. - Hospitalizations: : No recent hospitalization is reported. ROS: 20:14 Constitutional: Negative for fever, chills, and weight loss, Eyes: Negative for injury, rn pain, redness, and discharge, Neck: Negative for injury, pain, and swelling, Cardiovascular: Negative for palpitations, and edema, Respiratory: + for sob and pleuritic chest pain Abdomen/GI: Negative for abdominal pain, nausea, vomiting, diarrhea, and constipation, Back: Negative for injury MS/Extremity: Negative for injury and deformity, Skin: Negative for injury, rash, and discoloration, Neuro: Negative for headache, weakness, numbness, tingling, and seizure. Exam: 20:13 ECG was reviewed by the Attending Physician. 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 Head/Face: Normocephalic, atraumatic. Cardiovascular: Tachycardic, regular Respiratory: Mild tachypnea, no retractions, diminished breath sounds at bases Abdomen/GI: Soft, non-tender Skin: Warm, dry MS/ Extremity: Pulses equal, no cyanosis. Neurovascular intact. Full, normal range of motion. Equal circumference. Neuro: Awake and alert, GCS 15 Vital Signs: 20:05 BP 121 / 80; Pulse 101; Resp 22; Temp 99.8; Pulse Ox 96% on R/A; Weight 118.84 kg; eh3 Height 6 ft. 6 in. (198.12 cm); Pain 10/10; 22:08 BP 119 / 78; Pulse 98; Resp 19; Pulse Ox 96% on R/A; sm5 20:05 Body Mass Index 30.28 (118.84 kg, 198.12 cm) 3 MDM: 20:03 Patient medically screened. rn 22:04 Differential diagnosis: chest wall pain, costochondritis, pericarditis, pleurisy, rn pneumonia, pneumothorax, pulmonary embolus, COVID, viral infection. Data reviewed: vital signs, nurses notes, lab test result(s), EKG, radiologic studies, CT scan, plain films, and as a result, I will discharge patient. Counseling: I had a detailed discussion with the patient and/or guardian regarding: the historical points, exam findings, and any diagnostic results supporting the discharge/admit diagnosis, lab results, radiology results, the need for outpatient follow up, to return to the emergency department if symptoms worsen or persist or if there are any questions or concerns that arise at home. Special discussion: Based on the patient's history, exam, and Dx evaluation, there is no indication for emergent intervention or inpatient Tx. It is understood by the patient/guardian that if the Sx's persist or worsen they need to return immediately for re-evaluation. I discussed with the patient/guardian in detail that at this point there is no indication for admission to the hospital. It is understood, however, that if the symptoms persist or worsen the patient needs to return immediately for re-evaluation. ED course: Pt with COVID, neg CT PE, lungs clear on CXR, no oxygen requirement. Will dc home with return precautions. Pt requesting to be discharged, states needs to go home. . 22:07 Counseling: I had a detailed discussion with the patient and/or guardian regarding: rn smoking cessation. 22:07 ED course: Pt walked out prior to getting discharge paperwork or prescription. He was rn notified earlier of COVID + result. . 04/18 20:12 Order name: SARS-COV-2 RT PCR (Document "Date of Onset" if Symptomatic) rn 04/18 20:25 Order name: SARS-COV-2 RT PCR; Complete Time: 21:45 EDMS 04/18 20:18 Order name: Chest For Pe Angio; Complete Time: 21:45 EDMS 04/18 20:18 Order name: Chest Single View; Complete Time: 21:45 EDMS 04/18 20:32 Order name: Basic Metabolic Panel; Complete Time: 21:45 EDMS 04/18 20:32 Order name: Troponin High Sensitivity; Complete Time: 21:45 EDMS 04/18 20:32 Order name: NT PRO-BNP; Complete Time: 21:45 EDMS 04/18 20:32 Order name: CBC with Automated Diff; Complete Time: 20:41 EDMS 04/18 20:12 Order name: EKG; Complete Time: 08:23 rn 04/18 20:12 Order name: Cardiac monitoring; Complete Time: 20:30 rn 02 20:12 Order name: EKG - Nurse/Tech; Complete Time: 20:14 rn 04/18 20:12 Order name: IV Saline Lock; Complete Time: 20:20 rn 04/18 20:12 Order name: Labs collected and sent; Complete Time: 20:20 rn 04/18 20:12 Order name: O2 Per Protocol; Complete Time: 20:30 rn 04/18 20:12 Order name: O2 Sat Monitoring; Complete Time: 20:30 rn EC:13 Rate is 96 beats/min. Rhythm is regular. QRS [place] is Normal. [place] interval is normal. QRS rn interval is normal. QT interval is normal. No Q waves. T waves are Normal. No ST changes noted. Clinical impression: Normal ECG. Interpreted by me. Reviewed by me. Administered Medications: 20:30 Drug: Xopenex (levalbuterol) 1.25 mg Route: Inhalation; sm5 Disposition Summary: 04/18/22 22:05 Discharge Ordered Location: Home rn Problem: new rn Symptoms: have improved rn Condition: Stable rn Diagnosis - SARS-associated coronavirus as the cause of diseases classified elsewhere rn - Chest pain, unspecified rn Followup: rn - With: Private Physician - When: As needed - Reason: Recheck today's complaints, Re-evaluation by your physician Discharge Instructions: - Discharge Summary Sheet rn - Nonspecific Chest Pain, Adult rn - Viral Illness, Adult rn Forms: - Medication Reconciliation Form rn - Thank You Letter rn - Antibiotic learning and development analyst - Prescription Opioid Use rn Prescriptions: - Zithromax Z-Kofi 250 mg Oral Tablet - take 1 tablet by ORAL route as directed for 5 days Day 1 - take two (2) tablets rn one time. Day 2, 3, 4 , 5 take one (1) tablet once daily.; 6 tablet; Refills: 0, Product Selection Permitted Signatures: Dispatcher [employer] Keshav Mota MD MD rn Mazur, Sarah, RN RN 5 Deysi Benavidez 3 Corrections: (The following items were deleted from the chart) 20:13 20:07 Social history: Smoking status: Patient reports the use of cigarette tobacco eh3 products, eh3
--- NOTE | 2022-04-19 10:35 | ER ---
Nurse's Notes [facility] Name: Shaw Jacome Age: 41 yrs Sex: Male : 1980 Arrival Date: 04/18/2022 Time: 20:03 Bed 15 Private MD: Diagnosis: SARS-associated coronavirus as the cause of diseases classified elsewhere;Chest pain, unspecified Presentation: 04/18 20:05 Chief complaint: Patient states: chest pain radiating to back, started a few weeks ago. eh3 Ebola Screen: No symptoms or risks identified at this time. Initial Sepsis Screen: Does the patient meet any 2 criteria? No. Patient's initial sepsis screen is negative. Does the patient have a suspected source of infection? No. Patient's initial sepsis screen is negative. Risk Assessment: Do you want to hurt yourself or someone else? Patient reports no desire to harm self or others. Onset of symptoms is unknown. 20:05 Method Of Arrival: Ambulatory 3 20:05 Acuity: CHERRY 3 3 20:07 Coronavirus screen: Vaccine status: Patient reports being unvaccinated. 3 Triage Assessment: 20:07 General: Appears in no apparent distress. uncomfortable, Behavior is calm, cooperative, eh3 appropriate for age. Pain: Complains of pain in anterior aspect of right upper chest, anterior aspect of left upper chest and mid-sternal area Pain radiates to left scapular area, right scapular area and thoracic area Pain currently is 10 out of 10 on a pain scale. Quality of pain is described as sharp, stabbing, Pain began 2-3 months ago Is continuous, Aggravated by inspiration. Neuro: Level of Consciousness is awake, alert, obeys commands, Oriented to person, place, time, situation. Cardiovascular: Capillary refill < 3 seconds Patient's skin is warm and dry. Respiratory: Airway is patent Respiratory effort is even, unlabored. Historical: - Allergies: 20:07 No Known Allergies; eh3 - PMHx: 20:07 Under devoloped lungs as an infant; eh3 - Immunization history:: Adult Immunizations unknown. - Social history:: Smoking status: Patient reports the use of cigarette tobacco products, smokes one pack cigarettes per day. Patient uses alcohol, occasionally. street drugs, marijuana. - Family history:: Father has/had heart disease, hypertension. - Hospitalizations: : No recent hospitalization is reported. Screenin:44 Abuse screen: Denies threats or abuse. Denies injuries from another. Nutritional sm5 screening: No deficits noted. Tuberculosis screening: No symptoms or risk factors identified. Fall Risk None identified. Assessment: 20:30 General: Appears in no apparent distress. Behavior is appropriate for age. Pain: sm5 Complains of pain in back and chest. Neuro: Level of Consciousness is awake, alert, obeys commands, Oriented to person, place, time, situation. Cardiovascular: Capillary refill < 3 seconds Patient's skin is warm and dry. Respiratory: Airway is patent Trachea midline Respiratory effort is even, unlabored. Vital Signs: 20:05 BP 121 / 80; Pulse 101; Resp 22; Temp 99.8; Pulse Ox 96% on R/A; Weight 118.84 kg; eh3 Height 6 ft. 6 in. (198.12 cm); Pain 10/10; 22:08 BP 119 / 78; Pulse 98; Resp 19; Pulse Ox 96% on R/A; sm5 20:05 Body Mass Index 30.28 (118.84 kg, 198.12 cm) 3 ED Course: 20:03 Patient arrived in ED. ag3 20:03 Keshav Bhatt MD is Attending Physician. rn 20:07 Triage completed. eh3 20:07 Arm band placed on left wrist. eh3 20:20 Bed in low position. Call light in reach. Side rails up X 1. Warm blanket given. Client wm placed on continuous cardiac and pulse oximetry monitoring. NIBP monitoring applied. ultrasound technologist sonographer on. 20:20 Initial lab(s) drawn, by me, sent to lab. EKG done, by ED staff, COVID swab sent to lab.wm 20:24 Xi Burton, JO ANN is Primary Nurse. sm5 20:39 Inserted saline lock: 20 gauge in left antecubital area, using aseptic technique. Blood wm collected. 20:48 Chest Single View In Process Unspecified. EDMS 20:56 Chest For Pe Angio In Process Unspecified. EDMS 22:07 No provider procedures requiring assistance completed. IV discontinued, intact, sm5 bleeding controlled, No redness/swelling at site. Pressure dressing applied. Patient maintains SpO2 saturation greater than 95% on room air. Administered Medications: 20:30 Drug: Xopenex (levalbuterol) 1.25 mg Route: Inhalation; 5 Medication: 22:07 VIS not applicable for this client. 5 Outcome: 22:05 Discharge ordered by . rn 22:07 Discharged to home ambulatory. [facility] 22:07 Condition: stable 22:07 Discharge instructions given to patient, Instructed on discharge instructions, follow up and referral plans. Demonstrated understanding of instructions, follow-up care. 22:08 Patient left the ED. [facility] Signatures: Dispatcher [employer] EDMS Keshav hBatt MD MD rn Gomez, Alice Irene Weeks Sarah, RN RN [email or web address] Pramod, Deysi 3 Corrections: (The following items were deleted from the chart) 20:13 20:07 Social history: Smoking status: Patient reports the use of cigarette tobacco eh3 products, eh3
== END 2022-04-18 22:08 | disposition home or self-care (01) ==
LOC: ER 19:59
DX: U07.1 COVID-19 (principal); F17.210 Nicotine dependence, cigarettes, uncomplicated; Z82.49 Family history of ischemic heart disease and other diseases of the circulatory system
CPT/HCPCS: 93005; 85025; 80048; 36415; 84484; 83880; 71275; 71045; 99285; U0003; Q9967

== ENCOUNTER 2023-05-27 19:21 | Emergency (ER) | payer OTHER ==
--- OUTSIDE RECORDS SUMMARY | 2023-05-27 19:25 | XMS REPORT | Continuity of Care Document ---
:1980 Author Organization [facility] t Address [address] [place] [address] Care Team Providers Name Role Phone Unavailable Unavailable Unavailable Problems This patient has no known problems. Allergies, Adverse Reactions, Alerts This patient has no known allergies or adverse reactions. Medications This patient has no known medications. Procedures This patient has no known procedures. Encounters Start End Encounter Admission Attending Care Care Encounter Source Date/Time Date/Time Type Type Clinicians Facility Department ID 2022-07-04 2022-07-04 Outpatient [facility] [id number] Luis 13:52:44 13:52:44 1018 F Nino 2022-07-03 2022-07-03 Outpatient [facility] [id number] Luis 15:44:26 15:44:26 1017 F Nino Results Test Description Test Time Test Comments Results Result Comments Source SARS-CoV-2 (COVID-19), RT-PCR/TMA 2021-10-07 14:21:21 Test Item Value Reference Range Interpretation Comme nts SARS-CoV-2 INTERPRETATION NEGATIVE SEE NOTE S ARS-CoV-2 RNA NOT (test code = 32254) DETECTED Negative results do not preclude SARS-C [...] is h igh. SOURCE (test code = 36233) NOT SPECIFIED Note: Methodology is Alicia Stephane Real-Time RT-PCR. The expected result or reference range is NEGATI VE (Not Detected). For more information regarding COVID -19 testing to include clinica linformation, methodology det ail, intended use, FDA author ization andrecommended fact sheets for patients or hea lthcare providers, see NewTest Announcement: S ARS-CoV-2 (COVID-19) by N AAT at URL below (note,fact shee ts are provided by method given in report:[email or web address] [email or web address] [email or web address]/ Alternatively, see downloadable PDF fact sheet at:https://www. [employer]/COVID -19-RT-PCR UNLE SS OTHERWISE INDICATED, ALL TESTING PERFORMED ATCLINICAL PATH [facility] [place] [address] 4 ALLIANCE MANAGER: Skylar JUAREZ NUMBE R [id number] CAP ACCREDITATION N O. [id number] PSA, [id number] 05:29:41 Test Item Value Reference Range Interpretation Comments PSA, TOTAL 0.22 NG/ML See_Comment NOTE: Methodol ogy is Alicia (test code = Stephane Electroch emiluminescence 2606) Immunoassay tra ceable to WHO reference stand johanna 96/760. UNLESS OTHERWIS E INDICATED, ALL TESTING PERFORM ED ATCLINICAL PATHOLOGY [facility], [place] [address] LABORATORY DIRE CTOR: Skylar JUAREZIA NUMBER [id number] [place]. [id number] [A utomated message] The sy stem which generated this result transmitted ref erence range: <=4.00. The ref erence range was not used to int erpret this result as radha l/abnormal. COMPREHENSIVE METABOLIC [id number] 05:19:58 Test Item Value Reference Range Interpretation Comments GLUCOSE (test code = 107 MG/DL 70-99 H 2216) BUN (test code = 9 MG/DL 6-20 2207) CREATININE (test 0.97 MG/DL 0.80-1.40 EFFECTIVE code = 2214) 08/29/2021, [facility] HAS IMPLEMENTED THE NKF-ASN RECOMME NDED KD-EPI EGF R REFIT CALCULATI ON THAT DOES NOT INCLUDE A COEFFICIENT FOR RACE. FOR MORE INFORMATION, SE Curiel ANNOUNCEMENT [email or web address] eGFR (2020 CKD-EPI) 102 >60 (test code = 06621) ML/MIN/1.73 CALC BUN/CREAT (test 9 RATIO 6-28 code = 2235) SODIUM (test code = 146 MEQ/L 662-108 5553) POTASSIUM (test code 4.8 MEQ/L 3.5-5.4 = 2227) CHLORIDE (test code 106 MEQ/L 95-107 = 221) CARBON DIOXIDE (test 31 MEQ/L 19-31 code = 220) CALCIUM (test code = 10.1 MG/DL 8.5-10.5 2208) PROTEIN, TOTAL (test 7.5 G/DL 6.1-8.3 code = 222) ALBUMIN (test code = 4.5 G/DL 3.5-5.2 2200) CALC GLOBULIN (test 3.0 G/DL 1.9-3.7 code = 2240) CALC A/G RATIO (test 1.5 RATIO 1.0-2.6 code = 2234) BILIRUBIN, TOTAL 0.3 MG/DL See_Comment [Automated message] (test code = 2207) The syste m which generated this result transmit edvin reference range : <=1.2. The refe rence range was not u sed to interpret th is result as normal/abnormal . ALKALINE PHOSPHATASE 92 U/L 40-117 (test code = 2204) AST (test code = 22 U/L 9-50 2217) ALT (test code = 22 U/L 5-50 2218)
[2023-05-27 20:00] LABS: Absolute Lymphocytes (CBC) 1.8 K/uL (0.7-4.9); Hematocrit 40.9 % (39.6-49.0); Lymphocytes % 19.4 % (15.3-44.8); MCV 90.6 fL (80-100); MPV 7.8 fL (7.6-11.3); Platelets 262 thou/uL (152-406); RBC Red Blood Cell Count 4.51 M/uL (4.33-5.43)
[2023-05-27 20:20] LABS: Albumin 3.2 g/dL (3.4-5.0); Bilirubin Total 0.3 mg/dL (0.2-1.0); Potassium 3.9 mEq/L (3.5-5.1); Protein, Total 6.9 g/dL (6.4-8.2)
[2023-05-27] MEDS ORDERED: DICYCLOMINE HCL 10 MG CAP ONE (20:53)
[2023-05-27] MEDS ORDERED: KETOROLAC 30 MG/ML INJ ONE (20:53)
[2023-05-27] MEDS ORDERED: NA CHLORIDE 0.9% 1,000 ML ONE (20:54)
[2023-05-27] MEDS ORDERED: ONDANSETRON 4 MG/2 ML VIAL ONE (20:54)
[2023-05-27] MEDS ORDERED: MORPHINE 4 MG/ML SYR ONE (20:57)
[2023-05-27] MEDS ORDERED: DIAZEPAM 10 MG/2 ML INJ SYRINGE ONE ×2 (20:57→22:38)
--- NOTE | 2023-05-27 21:25 | RAD REPORT ---
EXAM DESCRIPTION: CT - Abdomen Pelvis W Contrast - 05/27/2023 8:37 pm CLINICAL HISTORY: right flank pain COMPARISON: Abdomen Pelvis W Contrast dated 03/09/2021 TECHNIQUE: Thin cut axial CT imaging of the abdomen and pelvis was performed following intravenous a dministration of 95 mL Isovue 300. Multiplanar reformats were generated and reviewed. All CT scans are performed using dose optimization technique as appropriate and may include automated exposure control or mA/KV adjustment according to patient size. FINDINGS: No suspicious findings in the lung bases. The liver, spleen, and pancreas show no suspicious findings. Gallbladder and biliary tree are also wi thout suspicious finding. Symmetric renal function is seen with no suspicious renal mass. Multiple calculi at the right pelviur eteric junction, largest measuring up to 6 millimeter. Moderate right hydronephrosis. No dilated bowel loops or bowel wall thickening. No free air, free fluid or inflammatory stranding. N o hernia, mass or bulky lymphadenopathy. The urinary bladder is without significant finding. No suspicious bony findings. IMPRESSION: Multiple calculi at the right pelviureteric junction, largest measuring up to 6 millimet er. Moderate right hydronephrosis.
--- NOTE | 2023-05-27 22:31 | EDPHYS ---
Physician Documentation [facility] Name: Shaw Jacome Age: 42 yrs Sex: Male : 1980 Arrival Date: 05/27/2023 Time: 19:21 Bed 4 Private MD: ED Physician Luis Issa HPI: 05/27 19:25 This 42 yrs old Male presents to ER via Unassigned with complaints of Back sp4 Pain. 19:40 42-year-old male presents with a cute onset of right lower back pain starting 6 days sp4 ago. The pain has gradually intensified at home. Patient states he thinks this may be his right kidney. Patient denied any allergies to any medication. Pain is worse with ambulation. Patient reports brown urine but denied any other associated symptoms. Denied fever or vomiting. . Historical: - Allergies: 20:04 No Known Allergies; lg3 - Home Meds: 20:04 None [Active]; lg3 - PMHx: 20:04 Under devoloped lungs as an ; lg3 - PSHx: 20:04 None; lg3 - Immunization history:: Adult Immunizations up to date. - Social history:: Smoking status: Patient reports the use of cigarette tobacco products, smokes one pack cigarettes per day. Patient uses street drugs, marijuana, Patient/guardian denies using alcohol. - Family history:: not pertinent. ROS: 19:40 Constitutional: Negative for fever, chills, and weight loss, MS/Extremity: Negative for sp4 injury and deformity, positive right lower back pain. 19:40 All other systems are negative. Exam: 19:40 Constitutional: This is a well developed, well nourished patient who is awake, alert, sp4 Limping ambulation. Nontoxic-appearing, anxious appearing Head/Face: Normocephalic, atraumatic. Eyes: Pupils equal round and reactive to light, extra-ocular motions intact. Lids and lashes normal. Conjunctiva and sclera are not injected. Cornea within normal limits. Periorbital areas with no swelling, redness, or edema. ENT: Nares patent. No nasal discharge, no septal abnormalities noted. Tympanic membranes are normal and external auditory canals are clear. Oropharynx with no redness, swelling, or masses, exudates, or evidence of obstruction, uvula midline. Mucous membranes moist. Neck: Trachea midline, no thyromegaly or masses palpated, and no cervical lymphadenopathy. Supple, full range of motion without nuchal rigidity, or vertebral point tenderness. Chest/axilla: Normal chest wall appearance and motion. Nontender with no deformity. No lesions are appreciated. Cardiovascular: Regular rate and rhythm with a normal S1 and S2. No gallops, murmurs, or rubs. Normal PMI, no JVD. No pulse deficits. Respiratory: Lungs have equal breath sounds bilaterally, clear to auscultation and percussion. No rales, rhonchi or wheezes noted. No increased work of breathing, no retractions or nasal flaring. Abdomen/GI: Soft, non-tender, with normal bowel sounds. No distension or tympany. No guarding or rebound. No evidence of tenderness throughout. Back: No spinal tenderness. No costovertebral tenderness. Positive right paraspinal muscular tenderness and tenderness right above the right iliac crest Male : Normal genitalia with no discharge or lesions. Skin: Warm, dry with normal turgor. Normal color with no rashes, no lesions, and no evidence of cellulitis. MS/ Extremity: Pulses equal, no cyanosis. Neurovascular intact. Full, normal range of motion. Neuro: Awake and alert, GCS 15, oriented to person, place, time, and situation. Cranial nerves II-XII grossly intact. Motor strength 5/5 in all extremities. Sensory grossly intact. Psych: Awake, alert, with orientation to person, place and time. Behavior, mood, and affect are within normal limits Vital Signs: 20:03 BP 131 / 89; Pulse 71; Resp 17 S; Temp 95.7(O); Pulse Ox 99% on R/A; Weight 240 kg (R); lg3 Height 6 ft. 6 in. ; Pain 9/10; 21:45 BP 126 / 88; Pulse 67; Resp 15 S; Pulse Ox 98% on R/A; lg3 20:03 Body Mass Index 61.14 (240.00 kg, 198.12 cm) lg3 20:03 Pain Scale: Adult lg3 MDM: 19:40 Data reviewed: vital signs, nurses notes, old medical records, lab test result(s), sp4 radiologic studies, CT scan. 19:42 Patient medically screened. sp4 22:27 Differential diagnosis: chronic back pain, Fatigue Myeloma Neoplasm Peptic Ulcer sp4 Pyelonephritis. Consideration of Admission/Observation Escalation of care including admission/observation considered. Management of patient was discussed with the following: Hospitalist: Discussed with [facility] hospitalist.. [place] Supervisor: Discussed with [facility] urologist. ED course: Patient has right hydronephrosis with 6 mm stone. This pain started about 6 days. Patient has elevated creatinine 1.65 up from his baseline of 1.39 . Patient also has persistent right flank pain. Patient was discussed with urologist and has been accepted for transfer to [facility]. Patient may warrant right ureteral stent. Condition on transfer is stable. 05/27 19:38 Order name: CBC with Diff; Complete Time: 20:29 [facility] 05/27 19:38 Order name: CMP; Complete Time: 20:29 [facility] 05/27 20:29 Interpretation: GFR 53. [facility] 05/27 19:38 Order name: Lipase; Complete Time: 20:29 [facility] 05/27 19:38 Order name: CT Abd/Pelvis - IV Contrast Only; Complete Time: 21:29 [facility] 05/27 19:38 Order name: IV Saline Lock; Complete Time: 19:55 [facility] 05/27 19:38 Order name: Labs collected and sent; Complete Time: 19:55 sp4 Administered Medications: 20:57 Drug: NS 0.9% IV 1000 ml Route: IV; Rate: 1 bolus; Site: right antecubital; lg3 21:46 Follow up: IV Status: Completed infusion; IV Intake: 1000ml lg3 20:57 Drug: Dicyclomine PO 20 mg Route: PO; lg3 21:46 Follow up: Response: No adverse reaction lg3 20:57 Drug: Diazepam IVP 5 mg Route: IVP; Site: right antecubital; lg3 21:45 Follow up: Response: No adverse reaction; Marked relief of symptoms; RASS: Drowsy (-1) lg3 20:58 Drug: TORadol - Ketorolac IVP 60 mg Route: IVP; Site: right antecubital; lg3 21:46 Follow up: Response: No adverse reaction; Marked relief of symptoms; Pain is decreased lg3 20:58 Drug: Ondansetron IVP 4 mg Route: IVP; Site: right antecubital; lg3 21:46 Follow up: Response: No adverse reaction lg3 20:58 Drug: morphine IVP or IV 4 mg Route: IVP; Infused Over: 4 mins; Site: right antecubital;lg3 21:47 Follow up: Response: No adverse reaction; Marked relief of symptoms; Pain is decreased lg3 22:32 Drug: Nicoderm CQ Transdermal Patch 21 mg/24 hr 21 mg Route: Transdermal; Site: rv affected area; 23:38 Follow up: Response: No adverse reaction rv 22:32 Drug: Diazepam IVP 5 mg Route: IVP; Site: right antecubital; rv 23:37 Follow up: Response: No adverse reaction rv Disposition Summary: 05/27/23 22:30 Transfer Ordered Transfer Location: [facility] sp4 Reason: Higher level of care sp4 Condition: Stable sp4 Problem: new sp4 Symptoms: are unchanged sp4 Accepting Physician: [facility]. (05/27/23 23:38) rv Diagnosis - Right ureteral stone, right hydronephrosis, 6 mm right ureteral stone, acute renal sp4 insufficiency Forms: - Medication Reconciliation Form sp4 - SBAR form sp4 Signatures: Dispatcher [employer] Ivan Torres RN RN rv Amanda Norris RN RN lg3 Luis Issa MD MD sp4 Corrections: (The following items were deleted from the chart) 22:39 19:38 Urinalysis+U.LAB.BRZ ordered. EDMS EDMS 23:38 22:30 [facility]. sp4 rv
--- NOTE | 2023-05-27 22:31 | ER ---
Nurse's Notes [facility] Name: Shaw Jacome Age: 42 yrs Sex: Male : 1980 Arrival Date: 05/27/2023 Time: 19:21 Bed 4 Private MD: Diagnosis: Right ureteral stone, right hydronephrosis, 6 mm right ureteral stone, acute renal insufficiency Presentation: 05/27 20:03 Chief complaint: Patient states: left back pain radiating to lower right abdomen and lg3 pelvis X5 days. Coronavirus screen: Client denies travel out of the [place] in the last 14 days. At this time, the client does not indicate any symptoms associated with coronavirus-19. Ebola Screen: No symptoms or risks identified at this time. Initial Sepsis Screen: Does the patient meet any 2 criteria? No. Patient's initial sepsis screen is negative. Does the patient have a suspected source of infection? No. Patient's initial sepsis screen is negative. Risk Assessment: Do you want to hurt yourself or someone else? Patient reports no desire to harm self or others. Onset of symptoms was May 22, 2023. 20:03 Method Of Arrival: Ambulatory lg3 20:03 Acuity: CHERRY 3 lg3 Triage Assessment: 20:04 General: Appears in no apparent distress. uncomfortable, Behavior is calm, cooperative. lg3 Pain: Complains of pain in right flank Pain radiates to suprapubic area and right lower quadrant. EENT: No deficits noted. No signs and/or symptoms were reported regarding the EENT system. Neuro: No deficits noted. Romero Agitation-Sedation Scale (RASS): +1 Restless Level of Consciousness is awake, alert, obeys commands, Oriented to person, place, time, situation. Cardiovascular: No deficits noted. Denies chest pain, shortness of breath, Capillary refill < 3 seconds Clubbing of nail beds is absent JVD is absent Patient's skin is warm and dry. Respiratory: No deficits noted. Airway is patent Respiratory effort is even, unlabored, Respiratory pattern is regular, symmetrical. GI: Abdomen is round non-distended, Reports lower abdominal pain, cramping. : Reports inability to void. Derm: No deficits noted. No signs and/or symptoms reported regarding the dermatologic system. Skin is intact, is healthy with good turgor, Skin is dry, Skin is normal, Skin temperature is warm. Musculoskeletal: No deficits noted. Circulation, motion, and sensation intact. Range of motion: intact in all extremities. Historical: - Allergies: 20:04 No Known Allergies; lg3 - Home Meds: 20:04 None [Active]; lg3 - PMHx: 20:04 Under devoloped lungs as an infant; lg3 - PSHx: 20:04 None; lg3 - Immunization history:: Adult Immunizations up to date. - Social history:: Smoking status: Patient reports the use of cigarette tobacco products, smokes one pack cigarettes per day. Patient uses street drugs, marijuana, Patient/guardian denies using alcohol. - Family history:: not pertinent. Screenin:07 [facility] ED Fall Risk Assessment (Adult) History of falling in the last 3 months, lg3 including since admission No falls in past 3 months (0 pts). Abuse screen: Denies threats or abuse. Denies injuries from another. Nutritional screening: No deficits noted. Tuberculosis screening: No symptoms or risk factors identified. Assessment: 20:07 General: see triage assessment . Neuro: Romero Agitation-Sedation Scale (RASS): +1 lg3 Restless. 21:45 Reassessment: Patient appears in no apparent distress at this time. Patient and/or lg3 family updated on plan of care and expected duration. Pain level reassessed. Patient is alert, oriented x 3, equal unlabored respirations, skin warm/dry/pink. Patient states feeling better. Patient states symptoms have improved. Neuro: Romero Agitation-Sedation Scale (RASS): -1 Drowsy. 23:36 Reassessment: REPORT GIVEN TO ARELI CHERRY [facility]. Neuro: Level of Consciousness is awake, rv alert, obeys commands, Oriented to person, place, time, situation. Cardiovascular: Capillary refill < 3 seconds Patient's skin is warm and dry. Respiratory: Airway is patent Respiratory effort is even, unlabored. Vital Signs: 20:03 BP 131 / 89; Pulse 71; Resp 17 S; Temp 95.7(O); Pulse Ox 99% on R/A; Weight 240 kg (R); lg3 Height 6 ft. 6 in. ; Pain 9/10; 21:45 BP 126 / 88; Pulse 67; Resp 15 S; Pulse Ox 98% on R/A; lg3 20:03 Body Mass Index 61.14 (240.00 kg, 198.12 cm) lg3 20:03 Pain Scale: Adult lg3 ED Course: 19:24 Patient arrived in ED. mr 19:24 Luis Issa MD is Attending Physician. sp4 19:55 Inserted saline lock: 22 gauge in right antecubital area, using aseptic technique. rv1 Blood collected. 19:55 CBC with Diff Sent. rv1 19:55 CMP Sent. rv1 19:55 Lipase Sent. rv1 20:04 Triage completed. lg3 20:04 Arm band placed on left wrist. lg3 20:07 Patient maintains SpO2 saturation greater than 95% on room air. lg3 20:07 Patient has correct armband on for positive identification. Warm blanket given. lg3 20:39 CT Abd/Pelvis - IV Contrast Only In Process Unspecified. EDMS 22:07 Emanuel Hanks, RN is Primary Nurse. bp 22:19 2140 called [facility] for transfer talked to Alfredo. sp 23:37 No provider procedures requiring assistance completed. Patient transferred, IV remains rv in place. 23:37 Provided Education on: KIDNEY STONES. rv Administered Medications: 20:57 Drug: NS 0.9% IV 1000 ml Route: IV; Rate: 1 bolus; Site: right antecubital; lg3 21:46 Follow up: IV Status: Completed infusion; IV Intake: 1000ml lg3 20:57 Drug: Dicyclomine PO 20 mg Route: PO; lg3 21:46 Follow up: Response: No adverse reaction lg3 20:57 Drug: Diazepam IVP 5 mg Route: IVP; Site: right antecubital; lg3 21:45 Follow up: Response: No adverse reaction; Marked relief of symptoms; RASS: Drowsy (-1) lg3 20:58 Drug: TORadol - Ketorolac IVP 60 mg Route: IVP; Site: right antecubital; lg3 21:46 Follow up: Response: No adverse reaction; Marked relief of symptoms; Pain is decreased lg3 20:58 Drug: Ondansetron IVP 4 mg Route: IVP; Site: right antecubital; lg3 21:46 Follow up: Response: No adverse reaction lg3 20:58 Drug: morphine IVP or IV 4 mg Route: IVP; Infused Over: 4 mins; Site: right antecubital;lg3 21:47 Follow up: Response: No adverse reaction; Marked relief of symptoms; Pain is decreased lg3 22:32 Drug: Nicoderm CQ Transdermal Patch 21 mg/24 hr 21 mg Route: Transdermal; Site: rv affected area; 23:38 Follow up: Response: No adverse reaction rv 22:32 Drug: Diazepam IVP 5 mg Route: IVP; Site: right antecubital; rv 23:37 Follow up: Response: No adverse reaction rv Medication: 23:37 VIS not applicable for this client. rv Intake: 21:46 IV: 1000ml; Total: 1000ml. lg3 Outcome: 22:30 ER care complete, transfer ordered by sp4 23:37 Transferred by ground EMS to [facility], Transfer form completed. rv X-rays sent w/ patient. 23:37 Condition: good 23:37 Instructed on the need for admit, the need for transfer. 23:38 Patient left the ED. rv Signatures: Dispatcher [employer] EDMS Kiara Palmer Mary mr DemarioEmanuel, RN RN Ivan Cortes RN RN Amanda Mora, JO ANN CHERRY lg3 Kera Lange rv1 Luis Issa MD MD sp4
[2023-05-27] MEDS ORDERED: NICOTINE 21 MG/PAT TD ONE (22:38)
[2023-05-28 00:54] VITALS: TEMP 95.7
[2023-05-28 00:55] VITALS: BP 126/88; O2SAT 98
== END 2023-05-27 23:38 | disposition short-term general hospital (02) ==
LOC: ER 19:21
DX: N13.2 Hydronephrosis with renal and ureteral calculous obstruction (principal); N28.9 Disorder of kidney and ureter, unspecified; F17.210 Nicotine dependence, cigarettes, uncomplicated; F15.90 Other stimulant use, unspecified, uncomplicated; F19.90 Other psychoactive substance use, unspecified, uncomplicated
CPT/HCPCS: 96361; 85025; 36415; 83690; 80053; 74177; 96375; 96374; 99285; Q9967; J3360 ×2; J2405; J7030

== ENCOUNTER 2023-08-28 20:18 | Emergency (ER) | payer OTHER ==
[2023-08-28 21:26] LABS: Absolute Lymphocytes (CBC) 1.5 K/uL (0.7-4.9); Hematocrit 40.7 % (39.6-49.0); Lymphocytes % 20.2 % (15.3-44.8); MCV 90.9 fL (80-100); MPV 8.2 fL (7.6-11.3); Platelets 344 thou/uL (152-406); RBC Red Blood Cell Count 4.47 M/uL (4.33-5.43)
[2023-08-28 21:30] LABS: Specific Gravity 1.013 (1.005-1.030); Urine Bacteria <20 /HPF (<20); Urine Bilirubin NEGATIVE (Negative); Urine Blood 3+ (OVER) (Negative); Urine Clarity Extremely Turbid (Clear); Urine Color Brown (Yellow); Urine Crystals Unidentified Few /HPF (None Seen); Urine Glucose NEGATIVE (Negative); Urine Mucus 1+ /HPF (None Seen); Urine Protein 2+ (Negative); Urine RBC >50 /HPF (None Seen); Urine Urobilinogen Normal (Normal); Urine pH 5.5 (5.0-7.0)
[2023-08-28 21:39] LABS: Potassium 4.2 mEq/L (3.5-5.1)
--- NOTE | 2023-08-28 22:11 | RAD REPORT ---
EXAM DESCRIPTION: CT - Stone Protocol - 08/28/2023 9:18 pm CLINICAL HISTORY: Abd pain;Flank pain COMPARISON: Abdomen Pelvis W Contrast dated 05/27/2023; Abdomen Pelvis W Contrast dated 03/09/2021 ; Stone Protocol dated 11/24/2020 TECHNIQUE: Thin cut axial CT imaging of the abdomen and pelvis was performed without IV contrast. Mu ltiplanar reformats were generated and reviewed. All CT scans are performed using dose optimization technique as appropriate and may include automated exposure control or mA/KV adjustment according to patient size. FINDINGS: No suspicious findings in the lung bases. The liver, spleen, adrenal glands, and pancreas show no suspicious findings. Gallbladder and biliary tree are also without suspicious finding. Symmetric renal contour, without suspicious parenchymal findings within limits of noncontrast techniq ue. Right ureteral stent in satisfactory position. Mild right hydronephrosis, partially improved sinc e the prior exam. Calculi at the right LV ureteric junction, perhaps mildly reduced the number, the l argest again measuring 6 mm. No dilated bowel loops or bowel wall thickening. No free air, free fluid or inflammatory stranding. N o hernia, mass or bulky lymphadenopathy. The urinary bladder is decompressed limiting evaluation. No suspicious bony findings. IMPRESSION: Improving is mild right hydronephrosis following right ureteral stent placement. Few residual calculi at the right pelviureteric junction, again up to 6 mm in size.
--- NOTE | 2023-08-28 22:20 | RAD REPORT ---
EXAM DESCRIPTION: US - Scrotum Testicles - 08/28/2023 9:53 pm CLINICAL HISTORY: PAIN COMPARISON: No comparisons TECHNIQUE: Sonographic grayscale and color flow images of the scrotum were obtained. FINDINGS: The right testicle measures 1.5 x 1.8 x 1.6 cm. No intratesticular masses or evidence of t esticular torsion. The left testicle measures 2.1 x 1.3 x 1.6 cm. No intratesticular masses or evidence of testicular to rsion. Both epididymides are enlarged with heterogeneous appearance and mildly prominent vascularity. No jeremiah reciable varicoceles. Trace bilateral hydroceles. IMPRESSION: Both epididymides are enlarged, with heterogeneous appearance and mildly prominent vascu larity. Findings are nonspecific and suggests an indolent infectious or inflammatory process, such as chronic epididymitis, with possibilities including atypical infections. Bilateral testicular atrophic changes. Trace bilateral hydroceles.
--- NOTE | 2023-08-28 22:26 | ER ---
Nurse's Notes [facility] Name: Shaw Jacome Age: 42 yrs Sex: Male : 1980 Arrival Date: 08/28/2023 Time: 20:18 Bed 7 Private MD: Diagnosis: Left testicular pain;Calculus of kidney with calculus of ureter Presentation: 08/28 20:34 Chief complaint: Patient states: Pt c/o left testicle pain x "the last couple weeks". cm10 Pt also c/o intermittent diffuse lower abdominal pain and flank pain since having a stent placed in right ureter in May. Pt denies N/V/D. Coronavirus screen: Vaccine status: Patient reports being unvaccinated. At this time, the client does not indicate any symptoms associated with coronavirus-19. Ebola Screen: Patient negative for fever greater than or equal to 101.5 degrees Fahrenheit, and additional compatible Ebola Virus Disease symptoms Patient denies exposure to infectious person. Patient denies travel to an Ebola-affected area in the 21 days before illness onset. No symptoms or risks identified at this time. Initial Sepsis Screen: Does the patient meet any 2 criteria? No. Patient's initial sepsis screen is negative. Does the patient have a suspected source of infection? No. Patient's initial sepsis screen is negative. Risk Assessment: Do you want to hurt yourself or someone else? Patient reports no desire to harm self or others. Onset of symptoms is unknown. 20:34 Method Of Arrival: Ambulatory cm10 20:34 Acuity: CHERRY 3 cm10 Historical: - Allergies: 20:40 No Known Allergies; cm10 - Home Meds: 20:40 None [Active]; cm10 - PMHx: 20:40 Under devoloped lungs as an ; Kidney stone; cm10 - Immunization history:: Adult Immunizations unknown. - Social history:: Smoking status: Patient reports the use of cigarette tobacco products, smokes one pack cigarettes per day. Screenin:16 [facility] ED Fall Risk Assessment (Adult) History of falling in the last 3 months, jj7 including since admission No falls in past 3 months (0 pts) Confusion or Disorientation No (0 pts) Intoxicated or Sedated No (0 pts) Impaired Gait No (0 pts) Mobility Assist Device Used No (0 pt) Altered Elimination No (0 pt) Score/Fall Risk Level 0 - 2 = Low Risk Oriented to surroundings, Maintained a safe environment, Educated pt \\T\\ family on fall prevention, incl call for assistance when getting out of bed. Abuse screen: Denies threats or abuse. Nutritional screening: No deficits noted. Tuberculosis screening: No symptoms or risk factors identified. Assessment: 21:00 General: Appears in no apparent distress. uncomfortable, Behavior is calm, cooperative, jj7 appropriate for age. Pain: Complains of pain in suprapubic area Pain currently is 9 out of 10 on a pain scale. 21:16 : Reports pain in suprapubic area. jj7 22:13 Reassessment: PT LEAVING AND STATES HE IS GOING TO [place]ANDERS AND WHEN TOLD TO HAVE A GOOD jj7 NIGHT PT STATES HE IS GOING TO GO HOME AND SMOKE SOME WEED. Vital Signs: 20:34 BP 124 / 89; Pulse 86; Resp 16; Temp 98.8(O); Pulse Ox 96% ; Weight 113.4 kg; Height 6 cm10 ft. 6 in. ; Pain 9/10; 21:40 BP 121 / 82; Pulse 82; Resp 16; Pulse Ox 99% ; jj7 20:34 Body Mass Index 28.89 (113.40 kg, 198.12 cm) cm10 20:34 Pain Scale: Adult cm10 ED Course: 20:26 Patient arrived in ED. gm2 20:27 Jeanne Garrison FNP-C [facility]. kb 20:27 Luis Issa MD is Attending Physician. kb 20:40 Triage completed. cm10 20:41 Arm band placed on Patient placed in an exam room, on a stretcher. cm10 20:45 Primo Gil, JO ANN is Primary Nurse. jj7 21:10 Basic Metabolic Panel Sent. jj7 21:10 CBC with Diff Sent. jj7 21:16 Patient has correct armband on for positive identification. Call light in reach. jj7 21:16 Urinalysis w/ reflexes Sent. jj7 21:20 CT Stone Protocol In Process Unspecified. EDMS 21:55 US Scrotum Testicles In Process Unspecified. EDMS 22:13 No provider procedures requiring assistance completed. IV discontinued, intact, jj7 bleeding controlled, No redness/swelling at site. Pressure dressing applied. Administered Medications: 22:37 Not Given (Patient Eloped): [id number] mg IVP once Medication: 21:16 VIS not applicable for this client. Outcome: 22:13 Discharged to [facility] 22:13 Discharged to home ambulatory, 22:13 Condition: good 22:13 Discharge instructions given to patient, BY GABBIE GARRISON 22:26 Discharge ordered by MD. card 22:37 Patient left the ED. Signatures: Dispatcher [employer] EDMS Jeanne Garrison, Primo Castillo RN RN jj7 Madelaine Stewart RN RN cm10 Ashley Ferrari 2 Corrections: (The following items were deleted from the chart) 21:17 21:00 Pain: Complains of pain in suprapubic area j7 j7
--- NOTE | 2023-08-28 22:27 | EDPHYS ---
Physician Documentation [facility] Name: Shaw Jacome Age: 42 yrs Sex: Male : 1980 Arrival Date: 08/28/2023 Time: 20:18 Bed 7 Private MD: ED Physician Luis Issa HPI: 08/28 22:23 This 42 yrs old Male presents to ER via Ambulatory with complaints of Testicular Pain. kb 22:23 Patient is a 42-year-old male who presents for bilateral flank pain, suprapubic pain kb and left testicular pain. States he had a stent placed in May due to a kidney stone that was too large to pass and he has not been back to have it removed due to finances. Patient states he has been to [facility] twice and they recommended that he come to this facility for evaluation so that we could transfer him to [facility] in [place]. Patient reports he had hematuria since stent was placed in May.. Historical: - Allergies: 20:40 No Known Allergies; cm10 - Home Meds: 20:40 None [Active]; cm10 - PMHx: 20:40 Under devoloped lungs as an infant; Kidney stone; cm10 - Immunization history:: Adult Immunizations unknown. - Social history:: Smoking status: Patient reports the use of cigarette tobacco products, smokes one pack cigarettes per day. ROS: 22:23 Constitutional: Negative for fever, chills, and weight loss, kb 22:23 Back: Positive for flank pain, bilaterally, 22:23 : Positive for hematuria, testicular pain 22:23 All other systems are negative, Exam: 22:23 Constitutional: This is a well developed, well nourished patient who is awake, alert, kb and in no acute distress. Head/Face: Normocephalic, atraumatic. ENT: Moist Mucous membranes Cardiovascular: Regular rate Respiratory: Respirations even and unlabored. No increased work of breathing. Talking in full sentences Skin: Warm, dry with normal turgor. Normal color. MS/ Extremity: Pulses equal, no cyanosis. Neurovascular intact. Full, normal range of motion. Neuro: Awake and alert, GCS 15, oriented to person, place, time, and situation. Moves all extremities. Normal gait. 22:23 Abdomen/GI: Inspection: abdomen appears normal, Bowel sounds: normal, Palpation: soft, in all quadrants, mild abdominal tenderness, in the suprapubic area, 22:23 Back: CVA tenderness, that is mild, is noted bilaterally, Vital Signs: 20:34 BP 124 / 89; Pulse 86; Resp 16; Temp 98.8(O); Pulse Ox 96% ; Weight 113.4 kg; Height 6 cm10 ft. 6 in. ; Pain 9/10; 21:40 BP 121 / 82; Pulse 82; Resp 16; Pulse Ox 99% ; jj7 20:34 Body Mass Index 28.89 (113.40 kg, 198.12 cm) cm10 20:34 Pain Scale: Adult cm10 MDM: 20:27 Patient medically screened. kb 22:19 Differential diagnosis: kidney stone, pyelonephritis, uti, testicular torsion. Data kb reviewed: vital signs, nurses notes. ED course: Pt does not want to wait any longer for results. States he wants his IV taken out so he can leave. CT report came back as pt was getting dressed. I spoke to patient about results and that I was still awaiting US result. Pt states he just wants to go home. Pt requested information on the dr that placed the stent in May. Pt educated that I don't have the information on the physician because the procedure was done at a different hospital. IV was removed by tech and pt left the ED via steady gait against medical advise. 08/28 20:36 Order name: CBC with Diff; Complete Time: 21:42 kb 08/28 20:36 Order name: Basic Metabolic Panel; Complete Time: 21:42 kb 08/28 20:36 Order name: Urinalysis w/ reflexes; Complete Time: 21:32 kb 08/28 21:33 Order name: Urine Culture EDMS 08/28 20:36 Order name: CT Stone Protocol; Complete Time: 22:11 kb 08/28 20:36 Order name: US Scrotum Testicles; Complete Time: 22:25 kb 08/28 20:36 Order name: IV Start; Complete Time: 21:10 kb Administered Medications: 22:37 Not Given (Patient Eloped): [id number] mg IVP once jj7 Disposition: 08/29 20:02 Co-signature as Attending Physician, Luis Issa MD I agree with the assessment sp4 and plan of care. I reviewed the patient's care provided by the Advanced Practice Provider and agree with the diagnosis and treatment plan. Disposition Summary: 08/28/23 22:26 Discharge Ordered Notes: Location: Home kb Condition: Stable kb Diagnosis - Left testicular pain kb - Calculus of kidney with calculus of ureter kb Followup: kb - With: Emergency Department - When: As needed - Reason: Worsening of condition Followup: kb - With: Private Physician - When: 2 - 3 days - Reason: Recheck today's complaints, Continuance of care, Re-evaluation by your physician Forms: - Medication Reconciliation Form kb - Thank You Letter kb - Antibiotic Education kb - Prescription Opioid Use kb - Patient Portal Instructions kb - Leadership Thank You Letter kb Signatures: Dispatcher [employer] EDMS Jeanne Garrison FNP-C FNP-Ckb Potepalov, Sergey, MD MD sp4 Madelaine Stewart RN RN cm10 Primo Gil RN jj7 Corrections: (The following items were deleted from the chart) 08/28 22:26 22:19 ED course: Pt does not want to wait any longer for results. States he wants his kb IV taken out so he can leave. CT report came back as pt was getting dressed. I spoke to patient about results and that I was still awaiting US result. Pt states he just wants to go home. Pt requested information on the dr that placed the stent in May. Pt educated that I don't have the information on the physician because the procedure was done at a different hospital. IV was removed by tech and pt left the ED via steady gait. . kb
[2023-08-29 00:44] VITALS: BP 121/82; TEMP 98.8; O2SAT 99
== END 2023-08-28 22:37 | disposition home or self-care (01) ==
LOC: ER 20:18
DX: N20.2 Calculus of kidney with calculus of ureter (principal); F17.210 Nicotine dependence, cigarettes, uncomplicated; Z87.442 Personal history of urinary calculi
CPT/HCPCS: 36415; 74176; 76377; 76870; 80048; 81001; 85025; 87086; 87088; 99283

== ENCOUNTER 2024-01-07 21:35 | Emergency (ER) | payer OTHER ==
[2024-01-07 22:32] LABS: Specific Gravity 1.026 (1.005-1.030); Sqamous Epithelial <5 /HPF (None Seen); Urine Bacteria 20-50 /HPF (<20); Urine Bilirubin NEGATIVE (Negative); Urine Blood 3+ (OVER) (Negative); Urine Clarity Extremely Turbid (Clear); Urine Color Light-Orange (Yellow); Urine Culture Reflex Order REFLEXED; Urine Glucose NEGATIVE (Negative); Urine Ketones NEGATIVE (Negative); Urine Micro Reflex YN NO BILL MICROSCOPIC; Urine Mucus 2+ /HPF (None Seen); Urine Nitrite NEGATIVE (Negative); Urine Protein 2+ (Negative); Urine RBC >50 /HPF (None Seen); Urine Urobilinogen Normal (Normal); Urine WBC >50 /HPF (<5); Urine Yeast (Budding) Few /HPF (None Seen)
[2024-01-07] MEDS ORDERED: LIDOCAINE 1% MPF 2 ML AMPULE ONE (23:33)
[2024-01-07] MEDS ORDERED: CEFTRIAXONE 1000 MG/VIAL ONE (23:33)
--- NOTE | 2024-01-07 23:43 | ER ---
Nurse's Notes [facility] Name: Shaw Jacome Age: 43 yrs Sex: Male : 1980 Arrival Date: 01/07/2024 Time: 21:35 Bed 16 Private MD: Diagnosis: Encounter for screening for infections with a predominantly sexual mode of transmission;UTI/ Urinary tract infection, site not specified Presentation: 01/06 21:46 Chief complaint: Patient states: blood in urine for 7 months with painful urination; pt km8 states "it's getting worse". Coronavirus screen: Client denies travel out of the [place] in the last 14 days. Ebola Screen: No symptoms or risks identified at this time. Initial Sepsis Screen: Does the patient meet any 2 criteria? No. Patient's initial sepsis screen is negative. Does the patient have a suspected source of infection? No. Patient's initial sepsis screen is negative. Risk Assessment: Do you want to hurt yourself or someone else? Patient reports no desire to harm self or others. Onset of symptoms is unknown. 21:46 Method Of Arrival: Ambulatory km8 21:46 Acuity: CHERRY 3 km8 Triage Assessment: 21:48 General: Appears in no apparent distress. uncomfortable, Behavior is calm, cooperative, km8 appropriate for age. Pain: Complains of pain in groin Pain currently is 8 out of 10 on a pain scale. EENT: No signs and/or symptoms were reported regarding the EENT system. Neuro: Level of Consciousness is awake, alert, obeys commands, Oriented to person, place, time, situation. Cardiovascular: Denies chest pain, shortness of breath, Patient's skin is warm and dry. Respiratory: Airway is patent Respiratory effort is even, unlabored, Respiratory pattern is regular, symmetrical. GI: No signs and/or symptoms were reported involving the gastrointestinal system. : Reports pain in suprapubic area with urination, blood in urine. Derm: No signs and/or symptoms reported regarding the dermatologic system. Skin is intact, is healthy with good turgor, Skin is dry, Skin is pink, warm \\T\\ dry. normal, Skin temperature is warm. Musculoskeletal: No signs and/or symptoms reported regarding the musculoskeletal system. Range of motion: intact in all extremities. Historical: - Allergies: 21:48 No Known Allergies; km8 - Home Meds: 21:48 prostate medication [Active]; 8 - PMHx: 21:48 Kidney stone; Under devoloped lungs as an ; enlarged prostate; [facility] - PSHx: 21:48 stent for kidenys; km8 - Immunization history:: Adult Immunizations up to date. - Infectious Disease History:: Denies. - Social history:: Smoking status: Patient reports the use of cigarette tobacco products, smokes one-half pack cigarettes per day, Patient uses alcohol, occasionally. street drugs, marijuana. Screenin:00 [facility] ED Fall Risk Assessment (Adult) History of falling in the last 3 months, bm8 including since admission No falls in past 3 months (0 pts) Confusion or Disorientation No (0 pts) Intoxicated or Sedated No (0 pts) Impaired Gait No (0 pts) Mobility Assist Device Used No (0 pt) Altered Elimination No (0 pt) Score/Fall Risk Level 0 - 2 = Low Risk Oriented to surroundings, Maintained a safe environment, Educated pt \\T\\ family on fall prevention, incl call for assistance when getting out of bed. Abuse screen: Denies threats or abuse. Nutritional screening: No deficits noted. Tuberculosis screening: No symptoms or risk factors identified. Assessment: 22:00 General: Appears in no apparent distress. comfortable, Behavior is calm, cooperative, bm8 appropriate for age. Pain: Complains of pain in urethra Pain does not radiate. Pain currently is 8 out of 10 on a pain scale. Quality of pain is described as burning, sharp. Neuro: No deficits noted. Level of Consciousness is awake, alert, obeys commands, Oriented to person, place, time, situation, Appropriate for age. Cardiovascular: No deficits noted. Capillary refill < 3 seconds Patient's skin is warm and dry. : Reports It feels like I am pissing razor blades. 22:47 Reassessment: Patient appears in no apparent distress at this time. No changes from bm8 previously documented assessment. Patient and/or family updated on plan of care and expected duration. Pain level reassessed. Patient is alert, oriented x 3, equal unlabored respirations, skin warm/dry/pink. 23:59 Reassessment: No changes from previously documented assessment. bm8 Vital Signs: 21:46 BP 138 / 95; Pulse 85; Resp 16; Temp 97(TE); Pulse Ox 98% on R/A; Weight 108.86 kg (R); km8 Height 6 ft. 6 in. (R); Pain 8/10; 22:47 BP 141 / 91; Pulse 65; Resp 12; Temp 97; Pulse Ox 99% ; Pain 2/10; bm8 23:59 BP 135 / 88; Pulse 62; Resp 17; Temp 97.2; Pulse Ox 99% ; Pain 2/10; bm8 21:46 Body Mass Index 27.73 (108.86 kg, 198.12 cm) km8 21:46 Pain Scale: Adult km8 22:47 Pain Scale: Adult bm8 23:59 Pain Scale: Adult bm8 [place] Coma Score: 22:00 Eye Response: spontaneous(4). Motor Response: obeys commands(6). Verbal Response: bm8 oriented(5). Total: 15. ED Course: 21:40 Patient arrived in ED. ra3 21:41 Tu Buckley PA is PHCP. cp 21:42 Rubén Johnson is Attending Physician. cp 21:48 Triage completed. km8 21:48 Arm band placed on right wrist. km8 22:00 Ricadro Collier, JO ANN is Primary Nurse. bm8 22:00 Patient has correct armband on for positive identification. Placed in gown. Bed in low bm8 position. Call light in reach. Side rails up X 1. Pulse ox on. NIBP on. Door closed. Noise minimized. Warm blanket given. Verbal reassurance given. 23:41 Brien Raman MD is Referral Physician. cp 23:59 Provided Education on: post er care. bm8 23:59 No provider procedures requiring assistance completed. Patient did not have IV access bm8 during this emergency room visit. Administered Medications: 23:51 Drug: Rocephin (cefTRIAXone) IM 1 grams IM once Route: IM; Site: left gluteus; bm8 23:59 Follow up: Response: No adverse reaction bm8 23:59 Drug: AZITHromycin PO 1 grams PO once Route: PO; bm8 23:59 Follow up: Response: Medication administered at discharge. bm8 Medication: 22:00 VIS not applicable for this client. bm8 Outcome: 23:42 Discharge ordered by . cp 23:59 Discharged to home ambulatory, bm8 23:59 Condition: stable 23:59 Discharge instructions given to patient, Instructed on discharge instructions, follow up and referral plans. no drinking with medication, medication usage, safe sex practices, safety practices, Demonstrated understanding of instructions, follow-up care, medications, Prescriptions given X 01/07 00:01 Patient left the ED. bm8 Signatures: Tu Buckley PA PA cp Marx, Katie, RN RN 8 Candelaria Swartz 3 Ricardo Collier RN RN bm8
--- NOTE | 2024-01-07 23:43 | EDPHYS ---
Physician Documentation [facility] Name: Shaw Jacome Age: 43 yrs Sex: Male : 1980 Arrival Date: 01/07/2024 Time: 21:35 Bed 16 Private MD: ED Physician Rubén Johnson HPI: 01/06 22:00 This 43 yrs old Male presents to ER via Ambulatory with complaints of Urinary Problem - cp psbl kidney stones. 22:00 The patient presents with urinary symptoms, dysuria, hematuria, penile discharge. cp 22:00 Onset: The symptoms/episode began/occurred for months. Associated signs and symptoms: cp Pertinent negatives: abdominal pain, constipation, fever, vomiting, flank pain. Severity of symptoms: in the emergency department the symptoms are unchanged, despite home interventions. Historical: - Allergies: 21:48 No Known Allergies; km8 - Home Meds: 21:48 prostate medication [Active]; km8 - PMHx: 21:48 Kidney stone; Under devoloped lungs as an infant; enlarged prostate; km8 - PSHx: 21:48 stent for kidenys; km8 - Immunization history:: Adult Immunizations up to date. - Infectious Disease History:: Denies. - Social history:: Smoking status: Patient reports the use of cigarette tobacco products, smokes one-half pack cigarettes per day, Patient uses alcohol, occasionally. street drugs, marijuana. ROS: 22:05 Constitutional: Negative for body aches, chills, fever, poor PO intake, cp 22:05 Respiratory: Negative for cough, shortness of breath, wheezing, cp 22:05 Abdomen/GI: Negative for abdominal pain, vomiting, diarrhea, constipation, 22:05 Back: Negative for pain at rest, pain with movement, 22:05 : Positive for hematuria, burning with urination, penile discharge, Negative for flank pain, testicular pain 22:05 Skin: Negative for rash, 22:05 Neuro: Negative for altered mental status, dizziness, headache, weakness, 22:05 All other systems are negative, Exam: 22:10 Constitutional: The patient appears in no acute distress, alert, awake, non-toxic, well cp developed, well nourished, 22:10 Head/Face: Normocephalic, atraumatic. cp 22:10 Eyes: Periorbital structures: appear normal, Conjunctiva: normal, no exudate, no injection, Sclera: no appreciated abnormality, 22:10 Chest/axilla: Inspection: normal, 22:10 Cardiovascular: Rate: normal, 22:10 Respiratory: the patient does not display signs of respiratory distress, Respirations: normal, no use of accessory muscles, no retractions, labored breathing, is not present, Breath sounds: are clear throughout, no decreased breath sounds, 22:10 Abdomen/GI: Inspection: abdomen appears normal, Palpation: abdomen is soft and non-tender, in all quadrants, 22:10 Back: pain, is absent, ROM is normal, Vital Signs: 21:46 BP 138 / 95; Pulse 85; Resp 16; Temp 97(TE); Pulse Ox 98% on R/A; Weight 108.86 kg (R); km8 Height 6 ft. 6 in. (R); Pain 8/10; 22:47 BP 141 / 91; Pulse 65; Resp 12; Temp 97; Pulse Ox 99% ; Pain 2/10; bm8 23:59 BP 135 / 88; Pulse 62; Resp 17; Temp 97.2; Pulse Ox 99% ; Pain 2/10; bm8 21:46 Body Mass Index 27.73 (108.86 kg, 198.12 cm) km8 21:46 Pain Scale: Adult km8 22:47 Pain Scale: Adult bm8 23:59 Pain Scale: Adult bm8 [place] Coma Score: 22:00 Eye Response: spontaneous(4). Motor Response: obeys commands(6). Verbal Response: bm8 oriented(5). Total: 15. MDM: 21:55 Patient medically screened. cp 23:41 Data reviewed: vital signs, nurses notes, lab test result(s), urinalysis. cp 23:41 Differential diagnosis: UTI, prostatitis, urethritis, std. I considered the following cp discharge prescriptions or medication management in the emergency department Medications were administered in the Emergency Department. See MAR. Counseling: I had a detailed discussion with the patient and/or guardian regarding the historical points, exam findings, and any diagnostic results supporting the discharge/admit diagnosis, lab results, to return to the emergency department if symptoms worsen or persist or if there are any questions or concerns that arise at home. Response to treatment: the patient's symptoms have mildly improved after treatment, and as a result, I will discharge patient. 01/06 21:53 Order name: Urinalysis W/Microscopic; Complete Time: 23:16 cp 01/06 22:36 Order name: Urine Culture EDMS Administered Medications: 23:51 Drug: Rocephin (cefTRIAXone) IM 1 grams IM once Route: IM; Site: left gluteus; bm8 23:59 Follow up: Response: No adverse reaction bm8 23:59 Drug: AZITHromycin PO 1 grams PO once Route: PO; bm8 23:59 Follow up: Response: Medication administered at discharge. bm8 Disposition Summary: 01/07/24 23:42 Discharge Ordered Notes: Location: Home cp Problem: new cp Symptoms: have improved cp Condition: Stable cp Diagnosis - Encounter for screening for infections with a predominantly sexual mode of cp transmission - UTI/ Urinary tract infection, site not specified cp Followup: cp - With: Brien Raman MD - When: 1 week - Reason: symptoms continue Discharge Instructions: - Discharge Summary Sheet cp - Urinary Tract Infection, Adult cp - Preventing Sexually Transmitted Infections, Adult cp Forms: - Medication Reconciliation Form cp - Antibiotic Education cp - Prescription Opioid Use cp - Patient Portal Instructions cp - Leadership Thank You Letter cp Prescriptions: - Doxycycline Hyclate 100 mg Oral Tablet - take 1 tablet ORAL route every 12 hours; 20 tablet; Refills: 0, Product cp Selection Permitted Signatures: Dispatcher [employer] EDMS Tu Buckley PA PA cp Ashley Mukherjee, RN RN km8 Ricardo Collier RN RN bm8
[2024-01-07] MEDS ORDERED: AZITHROMYCIN 250 MG TAB ONE (23:54)
[2024-01-08 00:35] VITALS: BP 135/88; TEMP 97.2; O2SAT 99
== END 2024-01-08 00:01 | disposition home or self-care (01) ==
LOC: ER 21:35
DX: Z11.3 Encounter for screening for infections with a predominantly sexual mode of transmission (principal); N39.0 Urinary tract infection, site not specified; F17.210 Nicotine dependence, cigarettes, uncomplicated
CPT/HCPCS: 87088; 81001; 87086; 96372; 99284; J0696